=== PATIENT | male | born 1955 | race Caucasian/White ===

== ENCOUNTER 2018-10-26 06:48 | Emergency (ER) | payer MEDICAID, SELFPAY ==
[2018-10-26 06:51] VITALS: BP 138/90; PULSE 73; RESP 20; TEMP 36.2; O2SAT 100
--- NOTE | 2018-10-26 07:07 | W.ED.GENAD ---
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 Please take acetaminophen 1 g every 8 hours for pain. Please take 5 mg of Flexeril as needed for pain not controlled with Tylenol. Please do not drive or operate heavy machinery while taking Flexeril. Please take valacyclovir to treat your shingles. Please return to the emergency department immediately for increasing pain fever chills focal neurologic deficit or other concern. Referrals: Sarah Bradford MD [Primary Care Provider] - Medical Decision Making <Rodrigo Traore MD - Last Filed: 10/26/18 07:18> 63-year-old male states he fell at home 1 week ago and since that time is had left-sided back pain has been moderate to severe at times. He states that he had a rash that developed after soaking and Epson salts, but on exam this does appear to be a unilateral vesicular rash most consistent with an eruption of shingles. He has had blunt trauma to the area from his fall and differential diagnosis includes contusion versus underlying bony or visceral injury. Therefore, screening labs obtained and patient referred for CT imaging. Patient to be signed out to Dr. Conteh at change of shift pending review of diagnostic studies. I will provide patient a prescription for Valacyclovir. <Sanjay Conteh MD - Last Filed: 10/26/18 08:49> 63-year-old male received in signout from Dr. Traore report of fall downstairs approximately a week ago developed left-sided back pain few days later vesicular rash that did not cross the midline consistent with shingles. Patient's lab work is unremarkable patient CT abdomen pelvis with contrast is also unremarkable. on repeat exam patient continues to complain of pain with improvement after analgesia in the emergency department. Patient has no change in sensation normal gait normal distal reflexes normal sensation normal strength on my exam at 0844. I do not suspect emergent cause of patient's lower back pain. Patient with questionable allergy to naproxen so we will avoid NSAIDs patient's pain management plan to include Flexeril, acetaminophen, and lidocaine patches. Patient to follow-up with his [facility] clinic as scheduled this Saturday to return to the emergency department for increasing pain new symptoms new concerns or focal neurologic weakness. Lab Data Lab results reviewed: Yes I reviewed the patient's lab results. HPI <Rodrigo Traore MD - Last Filed: 10/26/18 07:18> General Mode of arrival: ambulatory. Date/Time Provider Initiated Documentation: 10/26/18 06:52. Limitations to Documentation: no limitations. Information obtained by: patient. History of Present Illness 63 year old M presents to the emergency department with the chief complaint of Left back pain and rash since fall 1 week ago, described as moderate and severe, Quality is described as dull and constant, and is localized to the back and left. Patient reports no radiation. Patient started experiencing this day(s) and it has been constant. No relieving factors improve symptom(s), No exacerbating factors reported . Patient notes rash; denies headaches, shortness of breath and syncope. Patient did receive the following treatments prior to arrival, NSAID and other (tens unit) Related Data Home Medications Medication Instructions Recorded Confirmed valacyclovir 1,000 mg PO TID 7 Days #21 tab 10/26/18 Previous Rx's Medication Instructions Recorded valacyclovir 1,000 mg PO TID 7 Days #21 tab 10/26/18 Allergies Allergy/AdvReac Type Severity Reaction Status Date / Time naproxen [From Aleve] AdvReac Hives Unverified 10/26/18 06:57 General Stated Complaint: Nk/Back Pain KAR: 3 Review of Systems <Rodrigo Traore MD - Last Filed: 10/26/18 07:18> Review of Systems Patient feels that left-sided rash began after soaking Epson salts. 8 systems reviewed and otherwise negative PFSH <Rodrigo Traore MD - Last Filed: 10/26/18 07:18> Surgical History H/O arthroscopic knee surgery (Chronic) Social History Smoking/Tobacco Use Status: Never Alcohol Intake: former Substance use type: former substance user Do you feel safe at home: Yes Do you feel safe in your relationship?: Yes Exam <Rodrigo Traore MD - Last Filed: 10/26/18 07:18> Narrative Exam Narrative: GEN: awake, alert, oriented 3. Pleasant, well groomed, interactive. HEAD: Normocephalic, atraumatic ENT: Mucous membranes moist, oropharynx unremarkable, External ear exam unremarkable EYES: PERRL, EOMI NECK: Full ROM, no LESLEY, no menigismus CHEST/RESP: Nontender, clear to auscultation bilateral, no wheeze/rhonchi/rales CARDIOVASCULAR: RRR, no murmur, rub jacinto. 2+ Rad pulse bilateral ABDOMEN: Soft, nontender, no mass. +Bowel sounds BACK: Left low back and thorax with vesicular, crusted rash that does not cross the midline. Tender in the left paraspinous musculature EXT: Full ROM, no edema, no rash Neuro: Grossly normal neurologic exam, conversant, interactive. Psych: Speech fluent, thoughts congruent, affect normal Course <Rodrigo Traore MD - Last Filed: 10/26/18 07:18> Vital Signs Temperature 36.2 C L 10/26/18 06:51 Pulse 73 10/26/18 06:51 Respiratory Rate 20 10/26/18 06:51 Blood Pressure 138/90 10/26/18 06:51 Pulse Oximetry 100 10/26/18 06:51 Temperature 36.2 C L 10/26/18 06:51 Pulse 73 10/26/18 06:51 Respiratory Rate 20 10/26/18 06:51 Respiratory Effort Non-Labored 10/26/18 06:51 Blood Pressure 138/90 10/26/18 06:51 Pulse Oximetry 100 10/26/18 06:51 Oxygen Delivery Method Room Air 10/26/18 06:51 Oxygen Flow Rate 0 10/26/18 06:51 Pain Level 9 10/26/18 06:51 Sign Out <Rodrigo Traore MD - Last Filed: 10/26/18 07:18> Sign Out Data: Sign Out Comment: followup ct/labs Last updated by Rodrigo Traore MD at 10/26/18 07:41
--- NOTE | 2018-10-26 07:10 | ED.GENADUL_ITS ---
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 Please take acetaminophen 1 g every 8 hours for pain. Please take 5 mg of Flexeril as needed for pain not controlled with Tylenol. Please do not drive or operate heavy machinery while taking Flexeril. Please take valacyclovir to treat your shingles. Please return to the emergency department immediately for increasing pain fever chills focal neurologic deficit or other concern. Referrals: Sarah Bradford MD [Primary Care Provider] - Medical Decision Making <Rodrigo Traoer MD - Last Filed: 10/26/18 07:18> 63-year-old male states he fell at home 1 week ago and since that time is had left-sided back pain has been moderate to severe at times. He states that he had a rash that developed after soaking and Epson salts, but on exam this does appear to be a unilateral vesicular rash most consistent with an eruption of shingles. He has had blunt trauma to the area from his fall and differential diagnosis includes contusion versus underlying bony or visceral injury. Therefore, s creening labs obtained and patient referred for CT imaging. Patient to be signed out to Dr. Conteh at change of shift pending review of diagnostic studies. I will provide patient a prescription for Valacyclovir. <Sanjay Conteh MD - Last Filed: 10/26/18 08:49> 63-year-old male received in signout from Dr. Traore report of fall downstairs approximately a week ago developed left-sided back pain few days later vesicular rash that did not cross the midline consistent with shingles. Patient's lab work is unremarkable patient CT abdomen pelvis with contrast is also unremarkable. on repeat exam patient continues to complain of pain with improvement after analgesia in the emergency department. Patient has no change in sensation normal gait normal distal reflexes normal sensation normal strength on my exam at 0844. I do not suspect emergent cause of patient's lower back pain. Patient with questionable allergy to naproxen so we will avoid NSAIDs patient's pain management plan to include Flexeril, acetaminophen, and lidocaine patches. Patient to follow-up with his [facility] as scheduled this Saturday to return to the emergency department for increasing pain new symptoms new concerns or focal neurologic weakness. Lab Data Lab results reviewed: Yes I reviewed the patient's lab results. HPI <Rodrigo Traore MD - Last Filed: 10/26/18 07:18> General Mode of arrival: ambulatory . Date/Time Provider Initiated Documentation: 10/26/18 06:52 . Limitations to Documentation: no limitations . Information obtained by: patient . History of Present Illness 63 year old M presents to the emergency department with the chief complaint of Left back pain and rash since fall 1 week ago, described as moderate and severe, Quality is described as dull and constant, and is localized to the back and left. Patie nt reports no radiation. Patient started experiencing this day(s) and it has been constant. No relieving factors improve symptom(s), No exacerbating factors reported . Patient notes rash; denies headaches, shortness of breath and syncope. Patient did receive the following treatments prior to arrival, NSAID and other (tens unit) Related Data Home Medications Medication Instructions Recorded Confirmed valacyclovir 1,000 mg PO TID 7 Days #21 tab 10/26/18 Previous Rx's Medication Instructions Recorded valacyclovir 1,000 mg PO TID 7 Days #21 tab 10/26/18 Allergies Allergy/AdvReac Type Severity Reaction Status Date / Time naproxen [From Aleve] AdvReac Hives Unverified 10/26/18 06:57 General Stated Complaint: Nk/Back Pain KAR: 3 Review of Systems <Rodrigo Traore MD - Last Filed: 10/26/18 07:18> Review of Systems Patient feels that left-sided rash began after soaking Epson salts. 8 systems reviewed and otherwise negative PFSH <Rodrigo Traore MD - Last Filed: 10/26/18 07:18> Surgical History H/O arthroscopic knee surgery (Chronic) Social History Smoking/Tobacco Use Status: Never Alcohol Intake: former Substance use type: former substance user Do you feel safe at home: Yes Do you feel safe in your relationship?: Yes Exam <Rodrigo Traore MD - Last Filed: 10/26/18 07:18> Narrative Exam Narrative: GEN: awake, alert, oriented 3. Pleasant, well groomed, interactive. HEAD: Normocephalic, atraumatic ENT: Mucous membranes moist, oropharynx unremarkable, External ear exam unremarkable EYES: PERRL, EOMI NECK: Full ROM, no LESLEY, no menigismus CHEST/RESP: Nontender, clear to auscultation bilateral, no wheeze/rhonchi/rales CARDIOVASCULAR: RRR, no murmur, rub jacinto. 2+ Rad pulse bilateral ABDOMEN: Soft, nontender, no mass. +Bowel sounds BACK: Left low back and thorax with vesicular, crusted rash that does not cross the midline. Tender in the left paraspinous musculature EXT: Full ROM, no edema, no rash Neuro: Grossly normal neurologic exam, conversant, interactive. Psych: Speech fluent, thoughts congruent, affect normal Course <Rodrigo Traore MD - Last Filed: 10/26/18 07:18> Vital Signs Temperature 36.2 C L 10/26/18 06:51 Pulse 73 10/26/18 06:51 Respiratory Rate 20 10/26/18 06:51 Blood Pressure 138/90 10/26/18 06:51 Pulse Oximetry 100 10/26/18 06:51 Temperature 36.2 C L 10/26/18 06:51 Pulse 73 10/26/18 06:51 Respiratory Rate 20 10/26/18 06:51 Respiratory Effort Non-Labored 10/26/18 06:51 Blood Pressure 138/90 10/26/18 06:51 Pulse Oximetry 100 10/26/18 06:51 Oxygen Delivery Method Room Air 10/26/18 06:51 Oxygen Flow Rate 0 10/26/18 06:51 Pain Level 9 10/26/18 06:51 Sign Out <Rodrigo Traore MD - Last Filed: 10/26/18 07:18> Sign Out Data: Sign Out Comment: followup ct/labs Last updated by Rodrigo Traore MD at 10/26/18 07:41
[2018-10-26 07:33] LABS: Abs Immature Grans 0.02 k/cumm (0.0-0.09); Absolute Eosinophil Count 0.07 k/cumm (0.0-0.7); Absolute Lymphocyte Count 2.49 k/cumm (1.2-3.4); Absolute Monocyte Count 0.59 k/cumm (0.11-0.7); Absolute Neutrophil Count 4.24 k/cumm (1.2-6.7); Basophils % 1.3; Eosinophils % 0.9; HCT 44.7 % (40.0-50.0); HGB 14.9 g/dL (13.5-17.5); Immature Grans % 0.3; Lymphocytes % 33.2; Mean Corp. HGB Concentration 33.3 g/dL (32.0-36.0); Mean Corpuscular Hemoglobin 28.7 pg (27.0-33.0); Mean Platelet Volume 9.2 fL (8.0-11.0); Monocytes % 7.9; Neutrophils % 56.4; Platelet Count 221 x1000/uL (130-400); RBC Distribution Width 13.7 % (11.8-14.1); White Blood Cell Count 7.51 k/cumm (4.4-10.8)
[2018-10-26] MEDS: Ketorolac 15 MG/ML VIAL IVP (07:39)
[2018-10-26] MEDS: Ondansetron 4 MG/2 ML VIAL (07:39)
[2018-10-26 07:48] LABS: ALT 27 U/L (12-78); AST 15 U/L (15-37); Albumin 3.7 g/dL (3.4-5.0); Alkaline Phosphatase 64 U/L (46-116); Anion Gap 9.7 mmol/L (3-11); BUN 21 mg/dL (7-18); Bilirubin, Total 0.5 mg/dL (0.2-1.0); CO2 28.3 mmol/L (21.0-32.0); CREATININE 0.82 mg/dL (0.70-1.30); Calcium 8.9 mg/dL (8.5-10.1); Chloride 98 mmol/L (98-107); Glucose 114 mg/dL (70-100); Potassium 3.8 mmol/L (3.5-5.1); Sodium 136 mmol/L (136-145); Total Protein 7.8 g/dL (6.4-8.2)
[2018-10-26 07:51] LABS: Diff Comment Agrees w/ Instrument; RBC Morphology Normal
--- NOTE | 2018-10-26 08:20 | DI.CT_ITS ---
SYMPTOMS/DIAGNOSIS: LEFT LUMBAR PAIN S/P FALL CT OF THE ABDOMEN AND PELVIS: There are no prior comparison exams. Images were performed from the lung bases through the ischial tuberosities after IV contrast. There is no evidence of a lumbar spine fracture or lower rib fracture. No pelvic fractures are identified. Degenerative disc changes and mild hip joint degenerative changes are seen. The lung bases are clear. The liver, gallbladder, spleen, pancreas and adrenals are unremarkable. The right kidney appears normal. The left kidney shows a few small parapelvic cysts. The aorta shows calcification but is normal in diameter. The appendix is normal. There are a few diverticula in the sigmoid colon. There is no free air, free fluid or bowel wall thickening. The bladder and prostate are unremarkable. IMPRESSION: No acute abnormality.
[2018-10-26] MEDS: Omnipaque 350 MG/ML 100 ML BTL IJ (08:24)
[2018-10-26] MEDS: Normal Saline Flush 10 ML SYR IVP (08:25)
--- NOTE | 2018-10-26 08:38 | DI.VRAD_ITS ---
EXAM: CT Abdomen and Pelvis With Contrast EXAM DATE/TIME: 10/26/2018 7:15 AM CLINICAL HISTORY: 63 years old, male; Other: Left lumbar pain after fall. TECHNIQUE: Imaging protocol: Axial computed tomography images of the abdomen and pelvis with intravenous contrast. Coronal and sagittal reformatted images were created and reviewed. Radiation optimization: All CT scans at this facility use at least one of these dose optimization techniques: automated exposure control; mA and/or kV adjustment per patient size (includes targeted exams where dose is matched to clinical indication); or iterative reconstruction. Contrast material: OMNIPAQUE 350; Contrast volume: 100 ml; Contrast route: IV; COMPARISON: No relevant prior studies available. FINDINGS: ABDOMEN: Liver: Normal. No mass. Gallbladder and bile ducts: Normal. No calcified stones. No ductal dilation. Pancreas: Normal. No ductal dilation. Spleen: Normal. No splenomegaly. Adrenals: Normal. No mass. Kidneys and ureters: Normal. No hydronephrosis. Stomach and bowel: Colonic diverticulosis is present without evidence for inflammation. Appendix: No evidence of appendicitis. PELVIS: Bladder: Unremarkable as visualized. Reproductive: Unremarkable as visualized. ABDOMEN and PELVIS: Intraperitoneal space: Normal. No free air. No significant fluid collection. Bones/joints: Lumbar spine degenerative disc disease is noted. Soft tissues: Unremarkable. Vasculature: Normal. No abdominal aortic aneurysm. Lymph nodes: Normal. No enlarged lymph nodes. IMPRESSION: No acute findings Dictated and Authenticated by: Elier Joseph MD. Ordering:PAULO Wallace MD
[2018-10-26 09:06] VITALS: BP 138/90; PULSE 73; RESP 20; TEMP 36.2; O2SAT 100
== END 2018-10-26 09:08 | disposition home or self-care (01) ==
PROVIDERS: Emergency Medicine; Emergency Provider Emergency Medicine; PCP Nurse Practitioner
DX: M54.5 Low back pain (principal); B02.9 Zoster without complications; W01.0XXA Fall on same level from slipping, tripping and stumbling without subsequent striking against object, initial encounter
CPT/HCPCS: 36415; 80053; 96374; 99285; 74177; 85025; 99284; J1885; J2405; J3490

== ENCOUNTER 2018-12-03 13:25 | Outpatient (REF) | payer MEDICAID, SELFPAY ==
[2018-12-03 19:56] LABS: Abs Immature Grans 0.01 k/cumm (0.0-0.09); Absolute Basophil Count 0.03 k/cumm (0.0-0.2); Absolute Eosinophil Count 0.06 k/cumm (0.0-0.7); Absolute Lymphocyte Count 2.14 k/cumm (1.2-3.4); Absolute Monocyte Count 0.44 k/cumm (0.11-0.7); Absolute Neutrophil Count 3.94 k/cumm (1.2-6.7); Basophils % 0.5; Eosinophils % 0.9; HCT 42.1 % (40.0-50.0); HGB 13.8 g/dL (13.5-17.5); Immature Grans % 0.2; Lymphocytes % 32.3; Mean Corp. HGB Concentration 32.8 g/dL (32.0-36.0); Mean Corpuscular Hemoglobin 29.2 pg (27.0-33.0); Mean Platelet Volume 9.5 fL (8.0-11.0); Monocytes % 6.6; Neutrophils % 59.5; Platelet Count 285 x1000/uL (130-400); RBC 4.73 m/cumm (4.50-6.00); RBC Distribution Width 14.7 % (11.8-14.1); White Blood Cell Count 6.62 k/cumm (4.4-10.8)
[2018-12-03 20:19] LABS: ALT 30 U/L (12-78); AST 16 U/L (15-37); Albumin 3.9 g/dL (3.4-5.0); Alkaline Phosphatase 56 U/L (46-116); Amylase 33 U/L (25-115); Anion Gap 13.7 mmol/L (3-11); BUN 16 mg/dL (7-18); Bilirubin, Total 0.8 mg/dL (0.2-1.0); CO2 25.3 mmol/L (21.0-32.0); CREATININE 0.99 mg/dL (0.70-1.30); Calcium 9.4 mg/dL (8.5-10.1); Chloride 103 mmol/L (98-107); Glucose 122 mg/dL (70-100); Lipase 83 U/L (73-393); Potassium 3.9 mmol/L (3.5-5.1); Sodium 142 mmol/L (136-145)
[2018-12-03 20:58] LABS: Vitamin B12 364 pg/mL (193-986)
== END 2018-12-03 13:45 ==
LOC: NCHCN 13:25
PROVIDERS: PCP Nurse Practitioner; Visit Provider Nurse Practitioner
DX: R10.9 Unspecified abdominal pain (principal); R20.0 Anesthesia of skin
CPT/HCPCS: 80053; 83690; 82150; 82607; 85025

== ENCOUNTER 2019-01-28 03:33 | Outpatient (CLI) | payer MEDICAID, SELFPAY ==
--- NOTE | 2019-01-28 11:22 | DI.CT_ITS ---
SYMPTOMS/DIAGNOSIS: ABDOMINAL PAIN, R10.9, SHINGLES IN OCTOBER 2018 WITH LEFT-SIDED ABDOMINAL PAIN SINCE CT OF THE ABDOMEN AND PELVIS: Comparison is made with October,. Images were performed from the lung bases through the ischial tuberosities after IV and oral contrast. The lung bases show minimal dependent changes. The heart size is normal. No pleural or pericardial effusions are seen. The liver, gallbladder, spleen, pancreas and adrenals appear normal. Pelvic cysts of the left kidney are again noted. The right kidney appears normal. The appendix is normal. There are diverticula of the lower descending and sigmoid colon but no evidence of diverticulitis or colitis. The small bowel fold pattern appears normal. There is mild to moderate atherosclerotic change of the aorta and iliac arteries, but no evidence of an aneurysm. Degenerative disc changes are seen in the spine. IMPRESSION: No acute abnormality.
[2019-01-28] MEDS: Omnipaque 350 MG/ML 100 ML BTL IV (11:30)
== END 2019-01-28 03:53 ==
PROVIDERS: PCP Nurse Practitioner; Visit Provider Nurse Practitioner
DX: R10.9 Unspecified abdominal pain (principal)
CPT/HCPCS: 74177; J3490

== ENCOUNTER 2019-04-25 09:21 | Inpatient (IN) | payer MEDICAID, SELFPAY ==
[2019-04-25] VITALS (73 sets, daily range): BP systolic 118–197; BP diastolic 71–99; PULSE 65–123; RESP 5–53; TEMP 36.1–37.1; O2SAT 92–99
--- NOTE | 2019-04-25 09:27 | ED.GENADUL_ITS ---
Discharge Plan Disposition Patient Disposition: [facility] INPATIENT Condition: Serious Discharge Details Chief Complaint: AMS/LOC Clinical Impression: Altered mental status, Psychosis Admit Date/Time: 04/25/19 16:47 Admit Provider: ySd Styles Attending Provider: Syd Styles Primary Care Provider: Martha Lopez ED Provider: Oscar Bell Medical Decision Making 11:00 -- 63-year-old male here with EMS after being given ketamine for excited delirium syndrome, now obtunded. Protecting airway. Saturating well. Consider acute intracranial hemorrhage. Plan to obtain CT of the head. Consider intoxication. Will check EtOH and UDS. Patient has been chemically restrained by EMS with ketamine administered in the field. Patient is to be physically restrained here given significant risk of harm to self and others as demonstrated by violent and agressive erratic behavior immediately prior to administration of ketamine. Restraint and one-to-one observation has been ordered. Screening ECG was reviewed and interpreted by me: Sinus tachycardia 130 bpm, normal axis, right bundle branch block, nondiagnostic. 11:20 --labs reviewed and anion gap noted. We will continue IV fluid. UDS positive for THC. I spoke with the patient's brother who notes that his brother has had recent life stressors including job loss, family stressor including falling out with son. He notes that patient has been more confused recently with repetitive statements and agitation today. He notes he specifically current concern for a mental breakdown. I spoke with the patient's daughter who notes her father is chronically paranoid and she questions a personality disorder. She notes that he has multiple fractured relationships with family and friends. She also states that there was a past brain injury remotely. She notes that at times he can be belligerent. She states recent life stressor including his mother passing a few months ago. She also states that he has been perseverating on [employer] and politicians and has recently expressed intent to take action against [employer], he does not provide more specifics about what this action would be other than that it may land him in [facility]. Patient reassessed and remains altered now screaming and erratic. Plan to give anxiolytic -we will give Ativan 1 mg. Continue physicial restraint for patient and staff protection. Plan to consult mental health for EE for psychosis. 12:10 --I spoke with the patient's son who is on his HIPAA directive and updated him as to ED presentation and course. His son does note that patient has been declining over the past 2 weeks and much worse over the past 2 days. He specifically notes that the patient believes that he is a Messiah and needs to spread a message. It is unclear what this message is but son does note that he is not worried about getting arrested anymore as a consequence for doing the things he needs to do now that his mother is . Awaiting mental health consult. 12:30 -- Patient more cooperative. 4 pt restraint discontinued and 2pt restraint initiated for patient protection. CT head was interpreted by radiology:IMPRESSION: 1. No acute intracranial hemorrhage. 2. Opacities in the right maxillary sinus may represent sinusitis or hemorrhage. 3. Displaced fracture of the left lamina papyracea of unknown age. 13:10 -- Nursing note restraint no longer needed. Restraints discontinued, HPI General Mode of arrival: EMS . Date/Time Provider Initiated Documentation: 04/25/19 09:25 . Limitations to Documentation: altered mental status . Information obtained by: EMS . HPI Narrative: 63-year-old male with history and medical record of alcohol dependence in remission, anxiety and depression, presents today with altered mental status. Apparently patient was found on the street, altered and aggressive, confrontational with police and EMS, with erratic behavior. EMS was concern for excited delirium syndrome. There apparently was report of substance abuse. EMS administered ketamine 300 mg IM for sedation. Patient arrives now calm and altered. EMS noted that there is no history of trauma. Related Data Home Medications Medication Instructions Recorded Confirmed amitriptyline 10 mg tablet 10 mg PO DAILY 03/11/19 04/25/19 Allergies Allergy/AdvReac Type Severity Reaction Status Date / Time naproxen [From Aleve] AdvReac Hives Unverified 04/25/19 15:30 General KAR: 3 Review of Systems Unobtainable due to mental status [facility] Medical History Abdominal pain (Acute) Alcohol dependence in remission (Acute) Anxiety and depression (Acute) Low back pain (Acute) Numbness and tingling of right arm (Acute) Numbness in feet (Acute) Post herpetic neuralgia (Acute) Shingles (Acute) Surgical History H/O arthroscopic knee surgery (Chronic) Social History Smoking/Tobacco Use Status: Never Alcohol Intake: current Substance use type: former substance user Additional Social history: unable to verbalize at time of triage Exam Const General: cooperative and no acute distress HENMT Head: normocephalic and atraumatic Mouth: moist mucous membranes Eyes Conjunctivae: normal conjunctivae Sclera: normal sclerae Neck Neck: trachea midline and supple Chest Chest: normal inspection of the chest Resp Auscultation: clear to auscultation bilaterally, no rales, no rhonchi and no wheezes Cardio Jugular venous pressure: no JVD Rate: tachycardic Rhythm: regular rhythm GI Palpation: soft, no guarding, no masses and not rigid Back/Spine/Pelvis Back: No ecchymosis Skin General skin exam: no rashes or lesions noted Neuro General: obtunded and other (Protecting airway) Extrem General: no edema Restraint Face to Face Time of Face to Face Face to Face: Time of Face to Face: 09:35 Patient's Immediate Situation Requiring Restraints/Seclusion: Harm to Staff & Others Patient Response to Restraints: Tolerating without Problems Patient's Medical & Behavioral Condition: Aggressive, erratic, currently under tempory chemical sedation administered by EMS. Need for Continuation of Restraints Has Been Assessed: Restraints Continued 2nd Face to Face: Time of Face to Face: 11:12 Patient's Immediate Situation Requiring Restraints/Seclusion: Harm to Staff & Others Patient Response to Restraints: Tolerating without Problems Patient's Medical & Behavioral Condition: Still altered, erratic. More alert. Now screaming. Nursing notes still concerned.
[2019-04-25 09:41] LABS: Abs Immature Grans 0.02 k/cumm (0.0-0.09); Absolute Basophil Count 0.04 k/cumm (0.0-0.2); Absolute Eosinophil Count 0.12 k/cumm (0.0-0.7); Absolute Lymphocyte Count 2.93 k/cumm (1.2-3.4); Absolute Monocyte Count 0.77 k/cumm (0.11-0.7); Absolute Neutrophil Count 6.46 k/cumm (1.2-6.7); Basophils % 0.4; Eosinophils % 1.2; HCT 42.6 % (40.0-50.0); Immature Grans % 0.2; Lymphocytes % 28.3; Mean Corp. HGB Concentration 32.9 g/dL (32.0-36.0); Mean Corpuscular Hemoglobin 28.7 pg (27.0-33.0); Mean Corpuscular Volume 87.3 fL (80-95); Mean Platelet Volume 9.1 fL (8.0-11.0); Monocytes % 7.4; Neutrophils % 62.5; Platelet Count 273 x1000/uL (130-400); RBC 4.88 m/cumm (4.50-6.00); RBC Distribution Width 14.8 % (11.8-14.1); White Blood Cell Count 10.34 k/cumm (4.4-10.8)
--- NOTE | 2019-04-25 09:42 | DI.CT_ITS ---
EXAM: CT HEAD WO CLINICAL HISTORY: altered mentation TECHNIQUE: The exam was performed according to the usual protocol without contrast. COMPARISON: No priors for comparison. FINDINGS: Ventricles and sulci are consistent with the patient's age. There are areas of decreased attenuation in the white matter. These likely reflect small vessel ischemic disease. No acute intracranial hem orrhage, midline shift or mass effect is identified. The ventricles are intact. The basilar cistern s are patent. There is mucosal thickening in the right maxillary sinus. There is thickening of the donnelly of the right maxillary sinus. This likely reflects chronic sinusitis. No acute calvarial frac ture is identified. The mastoid air cells are well pneumatized. There is a displaced fracture of th e left lamina papyracea. This is indeterminate in age. IMPRESSION: 1. No acute intracranial process. 2. Displaced fracture of the left lamina papyracea of unknown age. 3. Right maxillary sinusitis.
[2019-04-25 09:49] LABS: Ammonia 27 umol/L (11-32)
--- NOTE | 2019-04-25 09:53 | DI.VRAD_ITS ---
PROCEDURE INFORMATION: Exam: CT Head Without Contrast Exam date and time: 04/25/2019 9:38 AM Clinical history: 63 years old, male; Altered mental status/memory loss TECHNIQUE: Imaging protocol: Computed tomography of the head without contrast. COMPARISON: No relevant prior studies available. FINDINGS: Brain: No acute intracranial hemorrhage. There is mild diffuse heterogeneity of the white matter attenuation, consistent with chronic white matter ischemic changes. Mild cerebral atrophy Ventricles: Normal. No ventriculomegaly. Bones/joints: Displaced fracture of the left lamina papyracea of unknown age. Sinuses: Opacities in the right maxillary sinus may represent sinusitis or hemorrhage. Mastoid air cells: Visualized mastoid air cells are well aerated. Soft tissues: Unremarkable. IMPRESSION: 1. No acute intracranial hemorrhage. 2. Opacities in the right maxillary sinus may represent sinusitis or hemorrhage. 3. Displaced fracture of the left lamina papyracea of unknown age. Dictated and Authenticated by: Hernán Aldana MD. Ordering:NAVEED Moore MD
[2019-04-25 10:04] LABS: ALT 26 U/L (16-63); AST 19 U/L (15-37); Albumin 3.9 g/dL (3.4-5.0); Alkaline Phosphatase 53 U/L (46-116); Anion Gap 18.5 mmol/L (3-11); BUN 22 mg/dL (7-18); Bilirubin, Total 0.9 mg/dL (0.2-1.0); CO2 18.5 mmol/L (21.0-32.0); CREATININE 1.43 mg/dL (0.70-1.30); Calcium 9.1 mg/dL (8.5-10.1); Chloride 102 mmol/L (98-107); Estimated GFR 50.11 (mL/min/1.73m2); Glucose 264 mg/dL (70-100); Potassium 3.4 mmol/L (3.5-5.1); Sodium 139 mmol/L (136-145); TSH (W/Ref FT4) 1.33 uIU/mL (0.36-3.74); Total Protein 7.3 g/dL (6.4-8.2)
[2019-04-25 10:05] LABS: ETHANOL BLOOD < 3.0 mg/dL (<3); Troponin I < 0.05 ng/mL (0.00-0.06)
[2019-04-25 10:28] LABS: Bilirubin Negative (Negative); Blood Trace-intact (Negative); Clarity Clear (Clear); Glucose 250 mg/dL (Negative); Ketones 15 mg/dL (Negative); Leukocyte Esterase Negative (Negative); Nitrite Negative (Negative); Specific Gravity >= 1.030 (1.005-1.025); Urobilinogen 0.2 EU/dL (Up TO 0.2)
[2019-04-25 10:30] LABS: *AMPHETAMINES SCREEN URINE Negative (Negative); *BARBITURATES SCREEN URINE Negative (Negative); *BENZODIAZEPINES SCREEN URINE Negative (Negative); Cannabinoids THC POSITIVE (Negative); Cocaine Screen,Urine Negative (Negative); METHADONE URINE SCREEN Negative (Negative); OPIATES URINE SCREEN Negative (Negative)
[2019-04-25 10:48] LABS: Epithelial Cells Few HPF (Negative)
[2019-04-25 10:49] LABS: C & S Indicated? Yes; Mucus Moderate (Negative)
[2019-04-25 10:58] LABS: Tricyclic Antidepressants Negative (Negative)
[2019-04-25] MEDS: LORazepam 2 MG/ML VIAL 1 MG IVP (11:23)
[2019-04-25] MEDS: THIAMINE 100 MG in Normal Saline 100 ML 200 MG IVPB (11:33)
[2019-04-25] MEDS: Normal Saline Flush 10 ML SYR IVP (11:34)
[2019-04-25] MEDS: Normal Saline 1,000 ML 1000 ML IV (11:53)
--- NOTE | 2019-04-25 13:58 | PDOC.MHCN_ITS ---
Date of service: 04/25/19 Time of Service: 12:55 Mental Health Crisis Note Presenting Issue How did you arrive at the ED and why did you come: Patient arrived at the ED after the [place] [employer] were contacted due to patient screaming and being violent in the street. Police had to use 300 ketamine to get patient down and with EMS who then brought him to [facility]. Precipitating Factors Patient presents very depressed and tearful when talking with this worker. Patients continues to loop in conversation about corruption of analytic programmer and government. Patient stated to hospital staff that he is 'no longer afraid to go to senior living for what needs to be done. Patients mom recently in December. Patient stated that he helps at the [employer] and was triggered by something said, this worker asked patient to explain what trigge red, patient did not answer. Patient stated that he had shingles a few months ago and has'nt been eating well. Patient denies SI and HI but states I'm done, I'm done, I'm worthless. Patient denies hallucinations of any kind. When asked about completing intake with mental health, patient stated that he has tried to get help from [facility] on [facility] with no luck, patient stated he had a therapist in the 90's who he might be able to see again. Patient has flat affect, calm at time of assessment, depressed mood. Patients states not sleeping and has not eaten well since he got shingles two months ago.
--- NOTE | 2019-04-25 16:20 | PDOC.MHCN ---
Date of service: 04/25/19 Time of Service: 16:20 Mental Health Crisis Note Presenting Issue How did you arrive at the ED and why did you come: Patient was transported to the ED by Police after becoming aggressive in the community. Precipitating Factors Patient does not cooperate with assessment, and incapable of answering questions with any awareness. Disposition BEHAVIOR: Patient was angry and yelling with aggressive movements. EYE CONTACT: Patient maintained appropriate eye contact. MOOD: Depressed, angry, confused and anxious. AFFECT: Flat, with animated outbursts. APPETITE: Unknown SLEEP(trouble falling/staying asleep: Unknown Plan Patient was placed on EE status to await placement. Signature Clinician's Name/Title: Rodrigo Bran BA. [facility]
--- NOTE | 2019-04-25 19:03 | CMPROGNOTE_ITS ---
Care Management Progress Note Jared was initially lying on a stretcher in the Emergency Department and had been released from restraints. He was rambling on about politics and could not really focus on the questions being asked. Feels he is worthless and doesn't really care what happens anymore. His mother recently and states he can now do what needs to be done. INVOLUNTARY FOR INPATIENT PSYCHIATRIC STABILIZATION. Patient is not able to express his needs and has had outbursts of agitated behavior. Has been effectively redirected but cannot articulate his wishes for treatment. He is a danger to himself and the EE has been completed. He is a high risk for elopement. Second Certification will be scheduled through [facility] within the next 24 hours. Plan is to admit to the Transition Bed on the M/S Floor. Nursing Specialist Icu will coordinate based on staffing and bed availability. Safety plan has been established with patient who has limited ability to participate, and care team, to adhere to patient goals, identify restrictions based on behavioral status, address nutrition, and determine allowed personal belongings, tools for hygiene and personal care. Determine level of activity including ambulation, level of supervision, visitors, and determine privileges based on behaviors and level of engagement by patient. Safety Huddle Participants: Kourtney; ANGELITA, Louisa; nursing general handling supervisor, Michelle; Lucas MERCADO, [facility] Director Of Instructional Technology, Rodrigo, [facility]; Dr. Oscar Bell. SAFETY PLAN: 1. Will remain on suicide precautions and in paper clothes or hospital gown. 2. Will remain in room under direct supervision of one-on-one staff at all times provided by CPSO, COMMUNITY AFFAIRS DIRECTOR, EMT, FURNACE OPERATOR AND TENDER injection molding operator. 3. May have paper cups, plates, finger foods as well as a safety spoon with which to eat meals. [facility] staff will be responsible for accounting of utensils after meals. 4. Follow [facility] Management of the Admitted Behavioral Health Patient policy. 5. Bathroom available in room, shower as needed per RN. 6. No personal belongings permitted at this time. 7. Brother, Son and Daughter may visit. 8. No phone tonight 9. No TV tonight 9. Due to INVOLUNTARY status, Jared must remain in the hospital. High risk for elopement. Contact the [facility] adult day care worker to re-evaluate and assist with de-escalation. Bed Coordination Updates: [facility]: no beds tonight [place]: No beds tonight [facility]- No beds tonight [facility]- No beds tonight. Patient is currently Involuntarily at [facility] and seeking inpatient psychiatric admission when a bed becomes available. [facility] Frontline Director Of Instructional Technology will continue seeking placement. Please contact the Floor Coverings Salesperson Morning Show Producer ([phone]) and [facility] Director Of Instructional Technology ([phone]) for any needed changes in the Safety Plan. Safety plan has been provided to interdepartmental care team.
--- NOTE | 2019-04-25 19:32 | PDOC.CMSAFE ---
Care Management Safety Plan INVOLUNTARY FOR INPATIENT PSYCHIATRIC STABILIZATION. Patient is not able to express his needs and has had outbursts of agitated behavior. Has been effectively redirected but cannot articulate his wishes for treatment. He is a danger to himself and the EE has been completed. He is a high risk for elopement. Second Certification will be scheduled through [facility] within the next 24 hours. Plan is to admit to the Transition Bed on the M/S Floor. Nursing Consultant Electronics will coordinate based on staffing and bed availability. Safety plan has been established with patient who has limited ability to participate, and care team, to adhere to patient goals, identify restrictions based on behavioral status, address nutrition, and determine allowed personal belongings, tools for hygiene and personal care. Determine level of activity including ambulation, level of supervision, visitors, and determine privileges based on behaviors and level of engagement by patient. SAFETY PLAN: DD 04/25/19 18:00 M/S Room 235 1. Will remain on suicide precautions and in paper clothes or hospital gown. 2. Will remain in room under direct supervision of one-on-one staff at all times provided by CPSO, CORNER CUTTER MACHINE OPERATOR, EMT, SHANK STAPLER smocking machine operator. 3. May have paper cups, plates, finger foods as well as a safety spoon with which to eat meals. [facility] staff will be responsible for accounting of utensils after meals. 4. Follow [facility] Management of the Admitted Behavioral Health Patient policy. 5. Bathroom available in room, shower as needed per RN. 6. No personal belongings permitted at this time. 7. Brother, Son and Daughter may visit. 8. No phone tonight 9. No TV tonight 9. Due to INVOLUNTARY status, Jaerd must remain in the hospital. High risk for elopement. Contact the [facility] bag shop worker to re-evaluate and assist with de-escalation.
--- NOTE | 2019-04-25 22:16 | W.PM.HP.N ---
Date of service: 04/25/19 Time of Service: 22:16 Assessment and Plan Assessment and plan (1) Psychosis: Status: Acute Assessment and plan: admit for observation pending 2nd psychiatric certification; use prn Ativan if severely agitated. For now he is content to talk repetively and to write political slogans and statements w/ crayons and paper. Qualifiers: Psychosis type: unspecified psychosis type Qualified Code(s): F29 - Unspecified psychosis not due to a substance or known physiological condition (2) Acute prerenal azotemia: Status: Acute Assessment and plan: Patient was given iv fluids in the ER. I doubt that the patient would be willing to allow iv placement tonight. He is now freely drinking. I will repeat his labs in the morning. (3) Hyperglycemia: Status: Acute Assessment and plan: possible occult new onset type II DM. I will repeat labs in the a.m. including glycohemoglobin a1c and BMP, then monitor glucose AC/HS (4) Hypokalemia: Status: Acute Assessment and plan: will give po potassium and repeat labs in a.m. History of Present Illness History of Present Illness Chief Complaint: altered mental status; psychosis Narrative: Information taken from ER notes as patient is delusional and very tangential and loquacious in his speech but is not redirectable to my questions. 63 yr old male w/ PMH of depression, alcohol dependence in remission, anxiety disorder who was found on the street with altered mental status and being verbally agressive and combative w/ EMS and police and showing erratic behavior. He was sedated by EMS w/ ketamine 300 mg IM and presented to the ER obtunded. CT of head was done and showed no acute IC hemorrhage but opacity of the right maxillary sinus and a displace fracture of the left lamina papyracea of unknown age. Labs included CBC, CMP, UA, TSH. CBC was unremarkable. CMP demonstrated mild azotemia w/ BUN 22 and creatinine of 1.43, potassium 3.4, AG of 18.5, glucose of 264, normal LFT's and normal TSH. UA w/ SG > 1.030, protein 30, ketones 15, trace blood, neg. nitrites, neg. LE, 20-50 granular casts. Patient was treated w/ lorazepam and thiamine and a liter of saline. He was admitted under involuntary admission EE due to concerns that he is a danger to himself. He is awaiting a second psychiatric certification. Futher information was obtained by Dr. Bell from the patient's family including his brother and daughter. According to the patient's brother, the patient has had a number of life stressors including job loss, of his mother, and a falling out with his son. The brother states that the patient has become more confused lately w/ repetitive statements, signs of agitation. The daughter states that the patient is chronically paranoid and that he has had multiple fractured relationships w/ family and friends and that the patient has suffered from traumatic brain injury in the remote past. he has been perseverating on powerhouse mechanic helper and politicians and expressed intent to take action against powerhouse mechanic helper but was not able to provide any specifics. Patient's son spoke w/ Dr. Bell and noted that the patient has been declining over past 2 weeks and worse in last 2 days w/ beliefs that he is a Messiah and needs to spread a message. The son expressed concern that his father is no longer worried about getting arrested anymore for doing the things he needs to do now that the patient's mother has . During my interview with the patient he obsessed about powerhouse mechanic helper making a lot of money off class action suits and that the average people do not benefit from it. He also perseverated on the topic of medical reform and how the cost of medical practice is driven up by malpractice attorneys and high cost of malpractice insurance. He also obsessed about how he wrote a complaint to Governor [place] who used executive privilege to avoid responding to the patient. The patient referred back to his childhood growing up in a family and traveling to [facility] and [place] and getting drunk with his father while he was still underage. The patient could not focus to discuss how he came about coming to the hospital or what he thinks is the matter with him or what others perceive is wrong with him. He was very circumstantial, tangential and very loquacious. Review of Systems Unobtainable due to mental status [facility] Medical History Abdominal pain (Acute) Alcohol dependence in remission (Acute) Anxiety and depression (Acute) Low back pain (Acute) Numbness and tingling of right arm (Acute) Numbness in feet (Acute) Post herpetic neuralgia (Acute) Shingles (Acute) Surgical History H/O arthroscopic knee surgery (Chronic) Social History Smoking/Tobacco Use Status: Never Alcohol Intake: current Substance use type: former substance user Additional Social history: unable to verbalize at time of triage Meds Home Medications and Allergies Home Medications Medication Instructions Recorded Confirmed Type amitriptyline 10 mg tablet 10 mg PO DAILY 03/11/19 04/25/19 History Allergies Allergy/AdvReac Type Severity Reaction Status Date / Time naproxen [From Aleve] AdvReac Hives Unverified 04/25/19 15:30 Exam Narrative Exam Narrative: deferred d/t combative nature, argumentative behavior. Results Labs Result diagrams: 04/25/19 09:17 04/25/19 09:17 Labs: Laboratory Results - last 24 hr 04/25/19 04/25/19 04/25/19 09:17 09:17 09:17 WBC 10.34 RBC 4.88 Hgb 14.0 Hct 42.6 MCV 87.3 MCH 28.7 MCHC 32.9 RDW 14.8 H Plt Count 273 MPV 9.1 Immature Gran % 0.2 Neutrophils % 62.5 Lymphocytes % 28.3 Monocytes % 7.4 Eosinophils % 1.2 Basophils % 0.4 Absolute Neutrophils 6.46 Absolute Lymphocytes 2.93 Absolute Monocytes 0.77 H Absolute Eosinophils 0.12 Absolute Basophils 0.04 Sodium 139 Potassium 3.4 L Chloride 102 Carbon Dioxide 18.5 L Anion Gap 18.5 H BUN 22 H Creatinine 1.43 H Estimated GFR/1.73 m2 50.11 Glucose 264 H Calcium 9.1 Total Bilirubin 0.9 AST 19 ALT 26 Alkaline Phosphatase 53 Ammonia 27 Troponin I < 0.05 Total Protein 7.3 Albumin 3.9 TSH 1.33 Urine Color Urine Clarity Urine pH Ur Specific [place] Urine Protein Urine Ketones Urine Blood Urine Nitrite Urine Bilirubin Urine Urobilinogen Ur Leukocyte Esterase Urine RBC Urine WBC Ur Epithelial Cells Urine Crystals Urine Bacteria Urine Casts Urine Mucus Ur Culture Indicated? Urine Glucose Urine Opiates Screen Urine Methadone Screen Ur Barbiturates Screen Ur Tricyclics Screen Ur Amphetamines Screen U Benzodiazepines Scrn Urine Cocaine Screen Ur THC Screen Ethyl Alcohol < 3.0 04/25/19 04/25/19 10:10 10:10 WBC RBC Hgb Hct MCV MCH MCHC RDW Plt Count MPV Immature Gran % Neutrophils % Lymphocytes % Monocytes % Eosinophils % Basophils % Absolute Neutrophils Absolute Lymphocytes Absolute Monocytes Absolute Eosinophils Absolute Basophils Sodium Potassium Chloride Carbon Dioxide Anion Gap BUN Creatinine Estimated GFR/1.73 m2 Glucose Calcium Total Bilirubin AST ALT Alkaline Phosphatase Ammonia Troponin I Total Protein Albumin TSH Urine Color Yellow Urine Clarity Clear Urine pH 5.0 Ur Specific [place] >= 1.030 H Urine Protein 30 H Urine Ketones 15 H Urine Blood Trace-intact H Urine Nitrite Negative Urine Bilirubin Negative Urine Urobilinogen 0.2 Ur Leukocyte Esterase Negative Urine RBC 3-5 H Urine WBC 3-5 Ur Epithelial Cells Few Urine Crystals Urine Bacteria Urine Casts 20-50 fine granular Urine Mucus Moderate Ur Culture Indicated? Yes Urine Glucose 250 H Urine Opiates Screen Negative Urine Methadone Screen Negative Ur Barbiturates Screen Negative Ur Tricyclics Screen Negative Ur Amphetamines Screen Negative U Benzodiazepines Scrn Negative Urine Cocaine Screen Negative Ur THC Screen Positive A Ethyl Alcohol Last Vital Signs Temp 36.1 C L 04/25/19 19:02 Pulse 99 H 04/25/19 19:02 Resp 18 04/25/19 19:02 BP 155/84 H 04/25/19 19:02 Pulse Ox 98 04/25/19 19:02
[2019-04-25] MEDS: Potassium Chloride 20 MEQ TABCR PO (23:45)
[2019-04-26 03:30] VITALS: BP 133/88; PULSE 98; RESP 16; TEMP 37; O2SAT 98
[2019-04-26 07:46] LABS: Anion Gap 10.2 mmol/L (3-11); BUN 16 mg/dL (7-18); CO2 23.8 mmol/L (21.0-32.0); CREATININE 0.88 mg/dL (0.70-1.30); Calcium 8.9 mg/dL (8.5-10.1); Chloride 108 mmol/L (98-107); Glucose 96 mg/dL (70-100); Magnesium 2.2 mg/dL (1.8-2.4); Potassium 4.1 mmol/L (3.5-5.1); Sodium 142 mmol/L (136-145)
[2019-04-26 08:19] VITALS: BP 125/79; PULSE 99; RESP 17; TEMP 36.7; O2SAT 96
[2019-04-26] MEDS: Thiamine 100 MG TAB PO (08:38)
[2019-04-26] MEDS: Multivitamin TAB 1 TAB PO (08:38)
[2019-04-26] MEDS: Normal Saline Flush 10 ML SYR IVP (08:40)
--- NOTE | 2019-04-26 09:51 | PDOC.MHCN ---
Date of service: 04/26/19 Time of Service: 09:52 Mental Health Crisis Note Presenting Issue How did you arrive at the ED and why did you come: Patient was brought to the Ed via Police after they were called to perform a safety check on the patient. Police found him to be very agitated, delusional and confused. Precipitating Factors Patient could not elaborate on what might possibly the reason for his actions and what if any events precipitated this event. Disposition BEHAVIOR: Today the patient appears to be in the midst of a manic episode, rapid speech, rapid thought process, and belief that he is all knowing. He reports being frustrated denies S/I or H/I. He exhibits, strong delusional thoughts believing he is Howierhett Suarezser, and does not currently possess the ability to make rational safe decisions for himself. Patient reports having several tick bites this year, but there is no medical confirmation of him receiving treatment. He provides large amounts of information with only very little of the information being accurate. EYE CONTACT: Constant fixed eye contact. MOOD: Highly Manic, animated and excited. AFFECT: Animated with rapid thought process. APPETITE: Appropriate. SLEEP(trouble falling/staying asleep: Undetermined because of sedation. Plan The Second Certification is scheduled for today 04/26/19 at 1:30 pm. If upheld psychiatric placement at an appropriate facility will follow. Signature Clinician's Name/Title: Rodrigo Bran BA.[facility]
[2019-04-26 12:17] VITALS: BP 131/70; PULSE 71; RESP 17; TEMP 36.6; O2SAT 100
--- NOTE | 2019-04-26 13:32 | W.PM.PROGNOT ---
Date of Service Date of service: 04/26/19 Time of Service: 13:32 Assessment and Plan Assessment and plan (1) Psychosis: Start date: 04/26/19 Start time: 13:39 Status: Acute Assessment and plan: Awaiting placement at this time. Patient second cert this afternoon. Qualifiers: Psychosis type: unspecified psychosis type Qualified Code(s): F29 - Unspecified psychosis not due to a substance or known physiological condition (2) Acute prerenal azotemia: Start date: 04/26/19 Start time: 13:50 Status: Acute Assessment and plan: Resolved. (3) Hyperglycemia: Start date: 04/26/19 Start time: 13:51 Status: Acute Assessment and plan: BGL 96 this am. A1c Pending (4) Hypokalemia: Start date: 04/26/19 Start time: 13:51 Status: Acute Assessment and plan: Resolved potassium 4.1 Above case was discussed with Dr. Styles who is in agreement. Subjective Subjective Patient reports: other Interval history since last seen: Appears to be manic. Writing on glass in room, irrational thoughts, writing with crayons all over paper. Second cert this afternoon while waiting placement. Patient appears to have flight of ideas rambling on different topics. Exam Narrative Exam Narrative: Const: Older male sitting up in bed, expressive with ideas, talking without stopping Eyes: PERRLA Chest: normal inspection Resp: Even unlabored, able to complete sentences without difficulty. LSCTAB, Cardio: regular rate and rhythm, no murmur GI: BSX4, non distended. Psych: flight of ideas, disheveled, appears to be manic. Objective Objective Clinical Data: Abnormal lab results 04/26/19 Range/Units 07:10 Chloride 108 H (98-107) mmol/L Vital Signs Temperature 36.6 C 04/26/19 12:17 Temperature Source Temporal Artery Scan 04/26/19 12:17 Pulse 71 04/26/19 12:17 Pulse Rhythm Regular 04/26/19 10:00 Pulse 103 H 04/25/19 16:16 Respiratory Rate 17 04/26/19 12:17 Respiratory Effort 04/26/19 10:00 Respiratory Depth Normal 04/26/19 10:00 Blood Pressure 131/70 04/26/19 12:17 Blood Pressure Mean 91 04/25/19 16:16 Blood Pressure Position Supine 04/25/19 09:23 Pulse Oximetry 100 04/26/19 12:17 Respiratory End-tidal CO2 25 04/25/19 10:40 Oxygen Delivery Method Room Air 04/26/19 12:17 Oxygen Flow Rate 0 04/26/19 12:17 End Tidal Co2 21 04/25/19 09:23 Pain Level 0 04/26/19 12:17 Comment 04/25/19 09:23 Intake & Output 04/25/19 04/26/19 04/26/19 23:59 11:59 23:59 Intake Total 1250 / 1250 Balance 1250 / 1150 Weight 81.1 kg Intake: IV 1000 / 1000 Oral 250 / 250 Other: Urine Color Yellow Urine Appearance Clear Clear Comment Per patient Voiding Methods Toilet Toilet Laboratory Results WBC 10.34 k/cumm (4.4-10.8) 04/25/19 09:17 RBC 4.88 m/cumm (4.50-6.00) 04/25/19 09:17 Hgb 14.0 g/dL (13.5-17.5) 04/25/19 09:17 Hct 42.6 % (40.0-50.0) 04/25/19 09:17 MCV 87.3 fL (80-95) 04/25/19 09:17 MCH 28.7 pg (27.0-33.0) 04/25/19 09:17 MCHC 32.9 g/dL (32.0-36.0) 04/25/19 09:17 RDW 14.8 % (11.8-14.1) H 04/25/19 09:17 Plt Count 273 x1000/uL (130-400) 04/25/19 09:17 MPV 9.1 fL (8.0-11.0) 04/25/19 09:17 Immature Gran % 0.2 04/25/19 09:17 Neutrophils % 62.5 04/25/19 09:17 Lymphocytes % 28.3 04/25/19 09:17 Monocytes % 7.4 04/25/19 09:17 Eosinophils % 1.2 04/25/19 09:17 Basophils % 0.4 04/25/19 09:17 Absolute Neutrophils 6.46 k/cumm (1.2-6.7) 04/25/19 09:17 Absolute Lymphocytes 2.93 k/cumm (1.2-3.4) 04/25/19 09:17 Absolute Monocytes 0.77 k/cumm (0.11-0.7) H 04/25/19 09:17 Absolute Eosinophils 0.12 k/cumm (0.0-0.7) 04/25/19 09:17 Absolute Basophils 0.04 k/cumm (0.0-0.2) 04/25/19 09:17 Sodium 142 mmol/L (136-145) 04/26/19 07:10 Potassium 4.1 mmol/L (3.5-5.1) D 04/26/19 07:10 Chloride 108 mmol/L (98-107) H 04/26/19 07:10 Carbon Dioxide 23.8 mmol/L (21.0-32.0) 04/26/19 07:10 Anion Gap 10.2 mmol/L (3-11) 04/26/19 07:10 BUN 16 mg/dL (7-18) D 04/26/19 07:10 Creatinine 0.88 mg/dL (0.70-1.30) D 04/26/19 07:10 Estimated GFR/1.73 m2 >= 60.00 (mL/min/1.73m2) 04/26/19 07:10 Glucose 96 mg/dL (70-100) D 04/26/19 07:10 Calcium 8.9 mg/dL (8.5-10.1) 04/26/19 07:10 Magnesium 2.2 mg/dL (1.8-2.4) 04/26/19 07:10 Total Bilirubin 0.9 mg/dL (0.2-1.0) 04/25/19 09:17 AST 19 U/L (15-37) 04/25/19 09:17 ALT 26 U/L (16-63) 04/25/19 09:17 Alkaline Phosphatase 53 U/L (46-116) 04/25/19 09:17 Ammonia 27 umol/L (11-32) 04/25/19 09:17 Troponin I < 0.05 ng/mL (0.00-0.06) 04/25/19 09:17 Total Protein 7.3 g/dL (6.4-8.2) 04/25/19 09:17 Albumin 3.9 g/dL (3.4-5.0) 04/25/19 09:17 TSH 1.33 uIU/mL (0.36-3.74) 04/25/19 09:17 Urine Color Yellow (Yellow) 04/25/19 10:10 Urine Clarity Clear (Clear) 04/25/19 10:10 Urine pH 5.0 (5-8) 04/25/19 10:10 Ur Specific [place] >= 1.030 (1.005-1.025) H 04/25/19 10:10 Urine Protein 30 mg/dL (Negative) H 04/25/19 10:10 Urine Ketones 15 mg/dL (Negative) H 04/25/19 10:10 Urine Blood Trace-intact (Negative) H 04/25/19 10:10 Urine Nitrite Negative (Negative) 04/25/19 10:10 Urine Bilirubin Negative (Negative) 04/25/19 10:10 Urine Urobilinogen 0.2 EU/dL (Up TO 0.2) 04/25/19 10:10 Ur Leukocyte Esterase Negative (Negative) 04/25/19 10:10 Urine RBC 3-5 (0-2) H 04/25/19 10:10 Urine WBC 3-5 HPF (0-5) 04/25/19 10:10 Ur Epithelial Cells Few HPF (Negative) 04/25/19 10:10 Urine Crystals HPF (Negative) 04/25/19 10:10 Urine Bacteria HPF (Negative) 04/25/19 10:10 Urine Casts 20-50 fine granular LPF (Negative) 04/25/19 10:10 Urine Mucus Moderate (Negative) 04/25/19 10:10 Ur Culture Indicated? Yes 04/25/19 10:10 Urine Glucose 250 mg/dL (Negative) H 04/25/19 10:10 Urine Opiates Screen Negative (Negative) 04/25/19 10:10 Urine Methadone Screen Negative (Negative) 04/25/19 10:10 Ur Barbiturates Screen Negative (Negative) 04/25/19 10:10 Ur Tricyclics Screen Negative (Negative) 04/25/19 10:10 Ur Amphetamines Screen Negative (Negative) 04/25/19 10:10 U Benzodiazepines Scrn Negative (Negative) 04/25/19 10:10 Urine Cocaine Screen Negative (Negative) 04/25/19 10:10 Ur THC Screen Positive (Negative) A 04/25/19 10:10 Ethyl Alcohol < 3.0 mg/dL (<3) 04/25/19 09:17
--- NOTE | 2019-04-26 14:17 | PHARADMIT ---
Admission Pharmacy Clinical Review psychosis Code Status Full Code Current Weight wgt-81.1 kg Renally Cleared and Narrow Therapeutic Index Meds CrCl~95 mL/min Meds-OK QTc Value / Action Taken QTc-472 (Home med Amitriptyline) BP Control, Fever BP-131/70 Tmax-37.1C Electrolytes reviewed Na-142 K+4.1 Mag-2.2 DVT Prophylaxis No No Opiate Usage / Scheduled Bowel Regimen Ordered Plt/SCr for Heparin / Enoxaparin Plts-273 SCr-0.88 INR for Warfarin NA H/H stable, WBC/Bands H&H- 14.0/42.6 WBC-10.34 Antibiotic appropriateness none Cultures and Sensitivities Urine- no growth/24hrs Surgical ABX d/c within 24 hr NA DM control / Insulin Dosing BG-96 Heart Failure (Check EF%) (MARCOS's, B-Block, Diuretics) none IV to PO Switch No Home Meds Reviewed Yes Home Meds Not Ordered Amitriptyline Comments
[2019-04-26 15:42] VITALS: BP 121/7; PULSE 87; RESP 18; TEMP 36.7; O2SAT 99
--- NOTE | 2019-04-26 19:47 | CMPROGNOTE_ITS ---
Care Management Progress Note Jared was sitting up and engaged in conversation with the CPSO. Would like to go home but is easily redirected and listens to the explanation and is willing to allow us to help him Sso agrees tostay without any altercations. INVOLUNTARY FOR INPATIENT PSYCHIATRIC STABILIZATION. Patient is not able to ex press his needs due to tangential flights of ideas that just all seem to end up together in a few sentences. There have been no outbursts of agitated behavior. Jared cannot articulate his wishes for treatment. He is a danger to himself in that he has no impulse control and crosses into the personal space of others without any filter. He is a high risk for elopement. Second Certification completed this afternoon by Dr. Alejandra from [facility]. He will remain on involuntary status and we will continue to seek inpatient psychiatric admission. Safety plan has been established with patient who has limited ability to participate, and care team, to adhere to patient goals, identify restrictions based on behavioral status, address nutrition, and determine allowed personal belongings, tools for hygiene and personal care. Determine level of activity including ambulation, level of supervision, visitors, and determine privileges based on behaviors and level of engagement by patient. Safety Huddle Participants: Louisa; nursing micrographics services supervisor, Notified but unable to attend, Michelle; Lucas MERCADO, [facility] Supervisor Shop, MARCELA Moreira- RN, Ryan, RN SAFETY PLAN: 1. Will remain on suicide precautions and in paper clothes or hospital gown. 2. Will remain in room under direct supervision of one-on-one staff at all times provided by CPSO, DINKEY ENGINEER, EMT, BROWNFIELD REDEVELOPMENT SPECIALIST towel rolling machine operator. 3. May have paper cups, plates, finger foods as well as a safety spoon with which to eat meals. [facility] staff will be responsible for accounting of utensils after meals. 4. Follow [facility] Management of the Admitted Behavioral Health Patient policy. 5. Bathroom available in room, shower as needed per RN. 6. No personal belongings permitted at this time. 7. Brother, Son and Daughter may visit. (Klaudia Mayer Dan) 8. No phone 9. TV and remote at the discretion of nursing 10. Crayons and Paper are permitted 11. Due to INVOLUNTARY status, Jared must remain in the hospital. High risk for elopement. Contact the [facility] structural ironworker to re-evaluate and assist with de-escalation. Bed Coordination Updates: [facility] [place]: no beds today [place]: No beds today [facility] [place]- [place] beds today [facility]- No beds today Patient is currently Involuntarily at [facility] and seeking inpatient psychiatric admission when a bed becomes available. [facility] Frontline Supervisor Shop will continue seeking placement. Please contact the Machine Made Shoe Unit Worker Tuber Machine Operator ([phone]) and [facility] Supervisor Shop ([phone]) for any needed changes in the Safety Plan. Safety plan has been provided to interdepartmental care team.
[2019-04-26 19:55] VITALS: BP 103/60; PULSE 76; RESP 17; TEMP 36.4; O2SAT 98
--- NOTE | 2019-04-26 19:58 | PDOC.CMSAFE ---
Care Management Safety Plan INVOLUNTARY FOR INPATIENT PSYCHIATRIC STABILIZATION. Patient is not able to express his needs due to tangential flights of ideas that just all seem to end up together in a few sentences. There have been no outbursts of agitated behavior. Jared cannot articulate his wishes for treatment. He is a danger to himself in that he has no impulse control and crosses into the personal space of others without any filter. He is a high risk for elopement. Second Certification completed this afternoon by Dr. Alejandra from [facility]. He will remain on involuntary status and we will continue to seek inpatient psychiatric admission. Safety plan has been established with patient who has limited ability to participate, and care team, to adhere to patient goals, identify restrictions based on behavioral status, address nutrition, and determine allowed personal belongings, tools for hygiene and personal care. Determine level of activity including ambulation, level of supervision, visitors, and determine privileges based on behaviors and level of engagement by patient. SAFETY PLAN: DD 04/26/19 16:00 M/S Room 235 1. Will remain on suicide precautions and in paper clothes or hospital gown. 2. Will remain in room under direct supervision of one-on-one staff at all times provided by CPSO, PRINCIPAL TECHNICAL WRITER, EMT, PSYCHIATRIC LPN buckle strap drum operator. 3. May have paper cups, plates, finger foods as well as a safety spoon with which to eat meals. [facility] staff will be responsible for accounting of utensils after meals. 4. Follow [facility] Management of the Admitted Behavioral Health Patient policy. 5. Bathroom available in room, shower as needed per RN. 6. No personal belongings permitted at this time. 7. Brother, Son and Daughter may visit. (Klaudia Mayer Dan) 8. No phone in room. May call family using unit phone. 9. TV and remote at the discretion of nursing 10. Crayons and Paper are permitted 11. Due to INVOLUNTARY status, Jared must remain in the hospital. High risk for elopement. Contact the [facility] steam trap worker to re-evaluate and assist with de-escalation. Patient is currently Involuntarily at [facility] and seeking inpatient psychiatric admission when a bed becomes available. [facility] Frontline Production Bow Maker will continue seeking placement. Please contact the Automotive Glazier Glazier Apprentice ([phone]) and [facility] Production Bow Maker ([phone]) for any needed changes in the Safety Plan. Safety plan has been provided to interdepartmental care team.
[2019-04-27 01:39] VITALS: BP 102/64; PULSE 76; RESP 21; TEMP 36.2; O2SAT 98
[2019-04-27 04:28] VITALS: BP 103/62; PULSE 69; RESP 19; TEMP 35.8; O2SAT 98
[2019-04-27 04:55] LABS: Hemoglobin A1C 6.2 % (4.5-6.2)
[2019-04-27] MEDS: Multivitamin TAB 1 TAB PO (07:40)
[2019-04-27] MEDS: Thiamine 100 MG TAB PO (07:40)
[2019-04-27 08:00] VITALS: BP 124/78; PULSE 94; RESP 18; TEMP 36.6; O2SAT 98
--- NOTE | 2019-04-27 10:21 | PDOC.CMSAFE ---
Care Management Safety Plan INVOLUNTARY FOR INPATIENT PSYCHIATRIC STABILIZATION. Jared is unable to express his needs due to tangential flights of ideas. He presents loudly, but pleasantly with no outbursts of agitated behavior. Jared cannot articulate his wishes for treatment. He lacks impulse control and situational awareness of others. He is a high risk for elopement, but thus far has been re-directed without issue. He visited with his children this morning and though his thoughts spun, he was consistent in certain areas of historical figures, entertainment figures, Christian, religions and theoretical rhetoric. Though he presented with flight of ideas, he appeared only to want to be heard and did not escalate when interrupted or redirected. He apologized in a sense as he explained that people do not have the time to listen to all he has to say. He made good eye contact, appeared sincere and passionate, but not in an overly escalated or dangerous way. Second Certification completed by Dr. Alejandra from [facility]. He will remain on involuntary status and inpatient psychiatric admission will continue to be sought. He was assessed by Martha Gonzalez of [facility] who found Jared meets continued criteria for placement. NO CHANGES TO SAFETY PLAN AT THIS TIME. Safety plan has been established with patient who has limited ability to participate, and care team, to adhere to patient goals, identify restrictions based on behavioral status, address nutrition, and determine allowed personal belongings, tools for hygiene and personal care. Determine level of activity including ambulation, level of supervision, visitors, and determine privileges based on behaviors and level of engagement by patient. SAFETY PLAN: DD 04/27/19 M/S Room 235 1. Will remain on suicide precautions and in paper clothes or hospital gown. 2. Will remain in room under direct supervision of one-on-one staff at all times provided by CPSO, REGISTERED NURSE RENAL, EMT, TECHNOLOGY ARCHITECT active directory systems administrator. 3. May have paper cups, plates, finger foods as well as a safety spoon with which to eat meals. [facility] staff will be responsible for accounting of utensils after meals. 4. Follow [facility] Management of the Admitted Behavioral Health Patient policy. 5. Bathroom available in room, shower as needed per RN. 6. No personal belongings permitted at this time. 7. Brother, Son and Daughter may visit. (Klaudia Mayer, Tonny) 8. No phone in room. May call family using unit phone. 9. TV and remote at the discretion of nursing 10. Crayons and Paper are permitted at this time. 11. Due to INVOLUNTARY status, Jared must remain in the hospital. High risk for elopement. Contact the [facility] nozzle and sleeve worker to re-evaluate and assist with de-escalation. Patient is currently Involuntarily at [facility] and seeking inpatient psychiatric admission when a bed becomes available. [facility] Frontline Brooch Maker Novelty will continue seeking placement. Please contact the Spark Plug Tester Barrel Endshaker Adjuster ([phone]) and [facility] Brooch Maker Novelty ([phone]) for any needed changes in the Safety Plan. Safety plan has been provided to interdepartmental care team.
--- NOTE | 2019-04-27 10:24 | CMPROGNOTE_ITS ---
Care Management Progress Note 0930 CM paged information officer [facility] to inquire to bed coordination and planning. 0945 CM spoke with Lucas, mud car worker who reported Martha Velasco; [facility] and herself would be arriving to [facility] within the hour to assess Jared. Lucas reported placement would be sought at [facility] and [facility]. 1025 Lucas arrived to assess patient, and reported Martha Velasco would arrive shortly. 1230 Martha Velasco assessed patient, reported Lucas was working on bed placement. 1600 CM inquired as to updates via electronic message. Lucas called this food writer reported she had just spoken with [facility] and they did not have a referral on Jared. CM faxed referral. 2000 CM spoke to BR who reported Jared would not be admitted tonight as MD had to review referral due to Involuntary status.
--- NOTE | 2019-04-27 10:24 | PDOC.CMPRO ---
Care Management Progress Note 0930 CM paged rn occupational health [facility] to inquire to bed coordination and planning. 0945 CM spoke with Lucas, telecommunications linesworker who reported Martha Velasco; [facility] and herself would be arriving to [facility] within the hour to assess Jared. Lucas reported placement would be sought at [facility] and [facility]. 1025 Lucas arrived to assess patient, and reported Martha Velasco would arrive shortly. 1230 Martha Velasco assessed patient, reported Lucas was working on bed placement. 1600 CM inquired as to updates via electronic message. Lucas called this medical underwriter reported she had just spoken with [facility] and they did not have a referral on Jared. CM faxed referral. 2000 CM spoke to BR who reported Jared would not be admitted tonight as MD had to review referral due to Involuntary status.
--- NOTE | 2019-04-27 13:22 | PGE_ITS ---
Date of Service Date of service: 04/27/19 Time of Service: 13:22 Assessment and Plan Assessment and plan (1) Psychosis: Start date: 04/27/19 Start time: 13:24 Status: Acute Assessment and plan: Awaiting placement at this time. Will remain in Qualifiers: Psychosis type: unspecified psychosis type Qualified Code(s): F29 - Unspecified psychosis not due to a substance or known physiological condition (2) Acute prerenal azotemia: Start date: 04/27/19 Start time: 13:24 Status: Acute Assessment and plan: Resolved. (3) Hyperglycemia: Start date: 04/27/19 Start time: 13:25 Status: Acute Assessment and plan: a1c 6.2, fingerstick 100. D/C fingersticks (4) Hypokalemia: Start date: 04/27/19 Start time: 13:25 Status: Acute Assessment and plan: Resolved Above case was discussed with Dr. Styles who is in agreement. Subjective Subjective Patient reports: no new complaints Interval history since last seen: Appears to be manic. Writing on glass in room, irrational thoughts, writing with crayons all over paper. Second cert this afternoon while waiting placement. Patient appears to have flight of ideas rambling on different topics. Exam Narrative Exam Narrative: Const: Older male sitting up in chair in espinal with 1:1 patient observer Eyes: PERRLA Chest: normal inspection Resp: Even unlabored, able to complete sentences without difficulty. LSCTAB, Cardio: regular rate and rhythm, no murmur GI: BSX4, non distended. Psych: flight of ideas, disheveled, appears to be manic. Objective Objective Clinical Data: Vital Signs Temperature 36.6 C 04/27/19 08:00 Temperature Source Tympanic 04/27/19 08:00 Pulse 94 H 04/27/19 08:00 Pulse Rhythm Regular 04/27/19 09:16 Pulse 103 H 04/25/19 16:16 Respiratory Rate 18 04/27/19 08:00 Respiratory Effort 04/27/19 09:16 Respiratory Depth Normal 04/27/19 09:16 Respiratory Pattern Normal 04/27/19 09:16 Blood Pressure 124/78 04/27/19 08:00 Blood Pressure Mean 91 04/25/19 16:16 Blood Pressure Position Supine 04/25/19 09:23 Pulse Oximetry 98 04/27/19 08:00 Respiratory End-tidal CO2 25 04/25/19 10:40 Oxygen Delivery Method Room Air 04/27/19 08:00 Oxygen Flow Rate 0 04/27/19 08:00 End Tidal Co2 21 04/25/19 09:23 Pain Level 0 04/27/19 08:00 Comment 04/25/19 09:23 Intake & Output 04/26/19 04/27/19 04/27/19 23:59 11:59 23:59 Intake Total 600 / 600 Balance 600 / 600 Intake: Oral 600 / 600 Other: Urine Color Yellow Urine Appearance Clear Clear Urine Odor Normal Comment Pt voiding ad lynn, denies any problems. Voiding Methods Toilet Toilet Laboratory Results WBC 10.34 k/cumm (4.4-10.8) 04/25/19 09:17 RBC 4.88 m/cumm (4.50-6.00) 04/25/19 09:17 Hgb 14.0 g/dL (13.5-17.5) 04/25/19 09:17 Hct 42.6 % (40.0-50.0) 04/25/19 09:17 MCV 87.3 fL (80-95) 04/25/19 09:17 MCH 28.7 pg (27.0-33.0) 04/25/19 09:17 MCHC 32.9 g/dL (32.0-36.0) 04/25/19 09:17 RDW 14.8 % (11.8-14.1) H 04/25/19 09:17 Plt Count 273 x1000/uL (130-400) 04/25/19 09:17 MPV 9.1 fL (8.0-11.0) 04/25/19 09:17 Immature Gran % 0.2 04/25/19 09:17 Neutrophils % 62.5 04/25/19 09:17 Lymphocytes % 28.3 04/25/19 09:17 Monocytes % 7.4 04/25/19 09:17 Eosinophils % 1.2 04/25/19 09:17 Basophils % 0.4 04/25/19 09:17 Absolute Neutrophils 6.46 k/cumm (1.2-6.7) 04/25/19 09:17 Absolute Lymphocytes 2.93 k/cumm (1.2-3.4) 04/25/19 09:17 Absolute Monocytes 0.77 k/cumm (0.11-0.7) H 04/25/19 09:17 Absolute Eosinophils 0.12 k/cumm (0.0-0.7) 04/25/19 09:17 Absolute Basophils 0.04 k/cumm (0.0-0.2) 04/25/19 09:17 Sodium 142 mmol/L (136-145) 04/26/19 07:10 Potassium 4.1 mmol/L (3.5-5.1) D 04/26/19 07:10 Chloride 108 mmol/L (98-107) H 04/26/19 07:10 Carbon Dioxide 23.8 mmol/L (21.0-32.0) 04/26/19 07:10 Anion Gap 10.2 mmol/L (3-11) 04/26/19 07:10 BUN 16 mg/dL (7-18) D 04/26/19 07:10 Creatinine 0.88 mg/dL (0.70-1.30) D 04/26/19 07:10 Estimated GFR/1.73 m2 >= 60.00 (mL/min/1.73m2) 04/26/19 07:10 Glucose 96 mg/dL (70-100) D 04/26/19 07:10 Hemoglobin A1c 6.2 % (4.5-6.2) 04/26/19 07:10 Calcium 8.9 mg/dL (8.5-10.1) 04/26/19 07:10 Magnesium 2.2 mg/dL (1.8-2.4) 04/26/19 07:10 Total Bilirubin 0.9 mg/dL (0.2-1.0) 04/25/19 09:17 AST 19 U/L (15-37) 04/25/19 09:17 ALT 26 U/L (16-63) 04/25/19 09:17 Alkaline Phosphatase 53 U/L (46-116) 04/25/19 09:17 Ammonia 27 umol/L (11-32) 04/25/19 09:17 Troponin I < 0.05 ng/mL (0.00-0.06) 04/25/19 09:17 Total Protein 7.3 g/dL (6.4-8.2) 04/25/19 09:17 Albumin 3.9 g/dL (3.4-5.0) 04/25/19 09:17 TSH 1.33 uIU/mL (0.36-3.74) 04/25/19 09:17 Urine Color Yellow (Yellow) 04/25/19 10:10 Urine Clarity Clear (Clear) 04/25/19 10:10 Urine pH 5.0 (5-8) 04/25/19 10:10 Ur Specific [place] >= 1.030 (1.005-1.025) H 04/25/19 10:10 Urine Protein 30 mg/dL (Negative) H 04/25/19 10:10 Urine Ketones 15 mg/dL (Negative) H 04/25/19 10:10 Urine Blood Trace-intact (Negative) H 04/25/19 10:10 Urine Nitrite Negative (Negative) 04/25/19 10:10 Urine Bilirubin Negative (Negative) 04/25/19 10:10 Urine Urobilinogen 0.2 EU/dL (Up TO 0.2) 04/25/19 10:10 Ur Leukocyte Esterase Negative (Negative) 04/25/19 10:10 Urine RBC 3-5 (0-2) H 04/25/19 10:10 Urine WBC 3-5 HPF (0-5) 04/25/19 10:10 Ur Epithelial Cells Few HPF (Negative) 04/25/19 10:10 Urine Crystals HPF (Negative) 04/25/19 10:10 Urine Bacteria HPF (Negative) 04/25/19 10:10 Urine Casts 20-50 fine granular LPF (Negative) 04/25/19 10:10 Urine Mucus Moderate (Negative) 04/25/19 10:10 Ur Culture Indicated? Yes 04/25/19 10:10 Urine Glucose 250 mg/dL (Negative) H 04/25/19 10:10 Urine Opiates Screen Negative (Negative) 04/25/19 10:10 Urine Methadone Screen Negative (Negative) 04/25/19 10:10 Ur Barbiturates Screen Negative (Negative) 04/25/19 10:10 Ur Tricyclics Screen Negative (Negative) 04/25/19 10:10 Ur Amphetamines Screen Negative (Negative) 04/25/19 10:10 U Benzodiazepines Scrn Negative (Negative) 04/25/19 10:10 Urine Cocaine Screen Negative (Negative) 04/25/19 10:10 Ur THC Screen Positive (Negative) A 04/25/19 10:10 Ethyl Alcohol < 3.0 mg/dL (<3) 04/25/19 09:17
--- NOTE | 2019-04-27 13:35 | PDOC.MHCN_ITS ---
Date of service: 04/27/19 Time of Service: 13:35 Mental Health Crisis Note Presenting Issue How did you arrive at the ED and why did you come: Law enforcement brought the patient to [facility] ([facility]) to be evaluated for safety. Precipitating Factors The patient is on Emergency Examination (EE) status as of 04/25/2019. Refer to Application for Emergency Examination dated 04/25/2019 written by Rodrigo Bran, [facility] Emergency Clinician. Disposition BEHAVIOR: Cooperative with this clinician and animated at times during our conversations. EYE CONTACT: Appropriate eye contact at times and also intense at times. MOOD: Depressed and anxious. AFFECT: Expansive affect with rambling speech and tangential thought process. APPETITE: Patient reports that his taste buds ability to taste have decreased and his hunger has diminished since October 2018 after having Shingles. However he reports eating well while at [facility]. SLEEP(trouble falling/staying asleep: Patient reports struggling with his ability to sleep since October 2018 after experiencing extreme pain from having Si ngles. However he reports sleeping well while at [facility]. Plan Patient will remain at [facility] until a psychiatric bed can be secured for admission. Lucas Villalta, [facility] Emergency Clinician, sent referrals to the [facility] and [facility] as they were the hospitals with psychiatric bed availability. Signature Clinician's Name/Title: Vadim Kapoor, [facility] Emergency Clinician, BA, [facility]
--- NOTE | 2019-04-27 13:35 | PDOC.MHCN ---
Date of service: 04/27/19 Time of Service: 13:35 Mental Health Crisis Note Presenting Issue How did you arrive at the ED and why did you come: Law enforcement brought the patient to [facility] ([facility]) to be evaluated for safety. Precipitating Factors The patient is on Emergency Examination (EE) status as of 04/25/2019. Refer to Application for Emergency Examination dated 04/25/2019 written by Rodrigo Bran, [facility] Emergency Clinician. Disposition BEHAVIOR: Cooperative with this clinician and animated at times during our conversations. EYE CONTACT: Appropriate eye contact at times and also intense at times. MOOD: Depressed and anxious. AFFECT: Expansive affect with rambling speech and tangential thought process. APPETITE: Patient reports that his taste buds ability to taste have decreased and his hunger has diminished since October 2018 after having Shingles. However he reports eating well while at [facility]. SLEEP(trouble falling/staying asleep: Patient reports struggling with his ability to sleep since October 2018 after experiencing extreme pain from having Singles. However he reports sleeping well while at [facility]. Plan Patient will remain at [facility] until a psychiatric bed can be secured for admission. Lucas Villalta, [facility] Emergency Clinician, sent referrals to the [facility] and [facility] as they were the hospitals with psychiatric bed availability. Signature Clinician's Name/Title: Vadim Kapoor, [facility] Emergency Clinician, BA, [place]
[2019-04-27 16:51] VITALS: BP 125/83; PULSE 79; RESP 18; TEMP 36; O2SAT 99
[2019-04-28] MEDS: LORazepam 2 MG/ML VIAL IM (06:23)
[2019-04-28] MEDS: Haloperidol 5 MG/ML VIAL IM (06:23)
[2019-04-28 06:28] VITALS: RESP 24
[2019-04-28] MEDS: diphenhydrAMINE 50 MG/ML VIAL IM (06:33)
--- NOTE | 2019-04-28 06:33 | RES.FACE_ITS ---
Date of service: 04/28/19 Time of Service: 06:28
--- NOTE | 2019-04-28 06:33 | W.RSTF2F ---
Date of service: 04/28/19 Time of Service: 06:28
[2019-04-28 08:11] VITALS: BP 98/64; PULSE 64; RESP 16; TEMP 36.1; O2SAT 94
--- NOTE | 2019-04-28 09:32 | CMPROGNOTE_ITS ---
Care Management Progress Note INVOLUNTARY FOR INPATIENT PSYCHIATRIC STABILIZATION. Jared required CODE MARTIN intervention this morning per RN. Second Certification completed by Dr. Alejandra from [facility]. Uncertainty of involuntary hold from [facility] today and [facility] requested process be re-started due to lack of specific information in certification paperwork. He was assessed by Giovanni of [facility] who found Jared meets continued criteria for placement- see progress note for further information regarding involuntary status issues with Department of Mental Health. NO CHANGES TO SAFETY PLAN AT THIS TIME. Safety plan has been established with patient who has limited ability to pa rticipate, and care team, to adhere to patient goals, identify restrictions based on behavioral status, address nutrition, and determine allowed personal belongings, tools for hygiene and personal care. Determine level of activity including ambulation, level of supervision, visitors, and determine privileges based on behaviors and level of engagement by patient. SAFETY PLAN: DD 04/27/19 M/S Room 235 1. Will remain on suicide precautions and in paper clothes or hospital gown. 2. Will remain in room under direct supervision of one-on-one staff at all times provided by CPSO, CONFORMAL PAD FORMER, EMT, SET UP WORKER application support manager. 3. May have paper cups, plates, finger foods as well as a safety spoon with which to eat meals. [facility] staff will be responsible for accounting of utensils after meals. 4. Follow [facility] Management of the Admitted Behavioral Health Patient policy. 5. Bathroom available in room, shower as needed per RN. 6. No personal belongings permitted at this time. 7. Brother, Son and Daughter may visit. (Klaudia Mayer Dan) 8. No phone in room. May call family using unit phone. 9. TV and remote at the discretion of nursing 10. Crayons and Paper are permitted at this time. 11. Due to INVOLUNTARY status, Jared must remain in the hospital. High risk for elopement. Contact the [facility] layout worker to re-evaluate and assist with de-escalation. Patient is currently Involuntarily at [facility] and seeking inpatient psychiatric admission when a bed becomes available. [facility] Frontline Compressor Service Technician will continue seeking placement. Please contact the Assessment Counselor Rn Imaging ([phone]) and [facility] Compressor Service Technician ([phone]) for any needed changes in the Safety Plan. Safety plan has been provided to interdepartmental care team.
--- NOTE | 2019-04-28 09:33 | CMPROGNOTE_ITS ---
Care Management Progress Note 09 CM spoke with BR who reported their MD was requesting a brain MRI due to uncertainty about diagnosis and causes. 924 CM notified Hospitalist who reported an MRI was not recommended. 929 CM spoke with Uzma of [facility] to inquire to bed coordination and planning, Uzma was unaware the patient was here. CM provided case review and BR request for MRI of the brain, which Hospitalist reports is not recommended at this time and would require Jared be medicated. 1400 Uzma reported that [facility] had revoked the EE due to lack of specific information though the 2nd Certification had been approved. Uzma reported [facility] was unwilling to present the information to the courts, and the Involuntary hold would at 1500. Uzma reported the paperwork would need to be restarted from the beginning. The hospitalists on M/S are not currently designated to compete the First Certification Physician statement. [address] Bell in ER to complete certification. 1500 CM met with Jared's children Klaudia and Martinez, as did Uzma of [facility]. CM reviewed known information regarding current barriers to disposition and mental health stabilization. CM provided supportive listening as Jarde's children expressed their concerns with lack of coordination of treatment. [address] Bell in ER to complete certification. 1900 Dr. Bell assessed patient.
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
--- NOTE | 2019-04-28 15:40 | PGE_ITS ---
Date of Service Date of service: 04/28/19 Time of Service: 15:40 Assessment and Plan Assessment and plan (1) Psychosis: Status: Acute Assessment and plan: With aggressive and erratic behavior in the community. Mental health consulted, continues to await placement. Ativan scheduled, appears sleepy, decrease to 0.5 mg TID with an additional 1 mg PRN dose. Continue safety plan with 1:1 patient observer. Mental health continues to seek placement at a psychiatric facility. Qualifiers: Psychosis type: unspecified psychosis type Qualified Code(s): F29 - Unspecified psychosis not due to a substance or known physiological condition (2) Hyperglycemia: Status: Acute Assessment and plan: Hgb A1c 6.2, fingersticks discontinued. (3) Discharge planning issues: Status: Acute Assessment and plan: He is a full code. Mental health continues to seek placement at a psychiatric facility. This case was discussed with Dr. Styles who is in agreement. Subjective Subjective Interval history since last seen: Jared Rainey is resting in bed with eyes closed. When awakened, he stated he needed the papers back that he wrote all over. He states he, feels like a fool because he went along with this. There is writing all over the wall and in the closet of his room, when questioned, he admits that he did that. The writing consists of random words, arrows. He states he also wrote on the window but it was cleaned off. He is upset that the papers and crayons were removed from his room. He falls asleep and needs to be awakened during the conversation. He denies chest pain, shortness of breath, abdominal pain, nausea or vomiting. He is eating and drinking. He reports feeling thirsty. Exam Narrative Exam Narrative: General: 63 year old man, resting in bed with eyes closed. awakens to verbal stimuli. Does not answer questions appropriately. 1:1 patient observer present. HEENT: pupils equal and round, EOMI, mucous membranes slightly dry. Neck: supple. Cardiovascular: heart has regular rate and rhythm, no murmur appreciated. Respiratory: respirations even and unlabored, lung sounds clear on limited anterior and lateral exam. GI: +bowel sounds x4 quadrants, abdomen soft, nontender on palpation, nondistended. Extremities: well perfused, no clubbing, cyanosis or edema. Hypertrophic toe nails. Objective Objective Clinical Data: Vital Signs Temperature 36.1 C L 04/28/19 08:11 Temperature Source Tympanic 04/28/19 08:11 Pulse 64 04/28/19 08:11 Pulse Rhythm Regular 04/28/19 13:14 Pulse 103 H 04/25/19 16:16 Respiratory Rate 16 04/28/19 08:11 Respiratory Effort 04/28/19 13:14 Respiratory Depth Normal 04/28/19 13:14 Respiratory Pattern Normal 04/28/19 13:14 Blood Pressure 98/64 L 04/28/19 08:11 Blood Pressure Mean 91 04/25/19 16:16 Blood Pressure Position Supine 04/25/19 09:23 Pulse Oximetry 94 L 04/28/19 08:11 Respiratory End-tidal CO2 25 04/25/19 10:40 Oxygen Delivery Method Room Air 04/28/19 08:11 Oxygen Flow Rate 0 04/28/19 08:11 End Tidal Co2 21 04/25/19 09:23 Pain Level 0 04/28/19 08:11 Comment 04/25/19 09:23 Intake & Output 04/27/19 04/28/19 04/28/19 23:59 11:59 23:59 Other: Urine Color Yellow Comment voided x 1 Stool Size Moderate Stool Characteristics Soft Voiding Methods Toilet Toilet Laboratory Results WBC 10.34 k/cumm (4.4-10.8) 04/25/19 09:17 RBC 4.88 m/cumm (4.50-6.00) 04/25/19 09:17 Hgb 14.0 g/dL (13.5-17.5) 04/25/19 09:17 Hct 42.6 % (40.0-50.0) 04/25/19 09:17 MCV 87.3 fL (80-95) 04/25/19 09:17 MCH 28.7 pg (27.0-33.0) 04/25/19 09:17 MCHC 32.9 g/dL (32.0-36.0) 04/25/19 09:17 RDW 14.8 % (11.8-14.1) H 04/25/19 09:17 Plt Count 273 x1000/uL (130-400) 04/25/19 09:17 MPV 9.1 fL (8.0-11.0) 04/25/19 09:17 Immature Gran % 0.2 04/25/19 09:17 Neutrophils % 62.5 04/25/19 09:17 Lymphocytes % 28.3 04/25/19 09:17 Monocytes % 7.4 04/25/19 09:17 Eosinophils % 1.2 04/25/19 09:17 Basophils % 0.4 04/25/19 09:17 Absolute Neutrophils 6.46 k/cumm (1.2-6.7) 04/25/19 09:17 Absolute Lymphocytes 2.93 k/cumm (1.2-3.4) 04/25/19 09:17 Absolute Monocytes 0.77 k/cumm (0.11-0.7) H 04/25/19 09:17 Absolute Eosinophils 0.12 k/cumm (0.0-0.7) 04/25/19 09:17 Absolute Basophils 0.04 k/cumm (0.0-0.2) 04/25/19 09:17 Sodium 142 mmol/L (136-145) 04/26/19 07:10 Potassium 4.1 mmol/L (3.5-5.1) D 04/26/19 07:10 Chloride 108 mmol/L (98-107) H 04/26/19 07:10 Carbon Dioxide 23.8 mmol/L (21.0-32.0) 04/26/19 07:10 Anion Gap 10.2 mmol/L (3-11) 04/26/19 07:10 BUN 16 mg/dL (7-18) D 04/26/19 07:10 Creatinine 0.88 mg/dL (0.70-1.30) D 04/26/19 07:10 Estimated GFR/1.73 m2 >= 60.00 (mL/min/1.73m2) 04/26/19 07:10 Glucose 96 mg/dL (70-100) D 04/26/19 07:10 Hemoglobin A1c 6.2 % (4.5-6.2) 04/26/19 07:10 Calcium 8.9 mg/dL (8.5-10.1) 04/26/19 07:10 Magnesium 2.2 mg/dL (1.8-2.4) 04/26/19 07:10 Total Bilirubin 0.9 mg/dL (0.2-1.0) 04/25/19 09:17 AST 19 U/L (15-37) 04/25/19 09:17 ALT 26 U/L (16-63) 04/25/19 09:17 Alkaline Phosphatase 53 U/L (46-116) 04/25/19 09:17 Ammonia 27 umol/L (11-32) 04/25/19 09:17 Troponin I < 0.05 ng/mL (0.00-0.06) 04/25/19 09:17 Total Protein 7.3 g/dL (6.4-8.2) 04/25/19 09: Albumin 3.9 g/dL (3.4-5.0) 04/25/19 09: TSH 1.33 uIU/mL (0.36-3.74) 04/25/19 09:17 Urine Color Yellow (Yellow) 04/25/19 10:10 Urine Clarity Clear (Clear) 04/25/19 10:10 Urine pH 5.0 (5-8) 04/25/19 10:10 Ur Specific [place] >= 1.030 (1.005-1.025) H 04/25/19 10:10 Urine Protein 30 mg/dL (Negative) H 04/25/19 10:10 Urine Ketones 15 mg/dL (Negative) H 04/25/19 10:10 Urine Blood Trace-intact (Negative) H 04/25/19 10:10 Urine Nitrite Negative (Negative) 04/25/19 10:10 Urine Bilirubin Negative (Negative) 04/25/19 10:10 Urine Urobilinogen 0.2 EU/dL (Up TO 0.2) 04/25/19 10:10 Ur Leukocyte Esterase Negative (Negative) 04/25/19 10:10 Urine RBC 3-5 (0-2) H 04/25/19 10:10 Urine WBC 3-5 HPF (0-5) 04/25/19 10:10 Ur Epithelial Cells Few HPF (Negative) 04/25/19 10:10 Urine Crystals HPF (Negative) 04/25/19 10:10 Urine Bacteria HPF (Negative) 04/25/19 10:10 Urine Casts 20-50 fine granular LPF (Negative) 04/25/19 10:10 Urine Mucus Moderate (Negative) 04/25/19 10:10 Ur Culture Indicated? Yes 04/25/19 10:10 Urine Glucose 250 mg/dL (Negative) H 04/25/19 10:10 Urine Opiates Screen Negative (Negative) 04/25/19 10:10 Urine Methadone Screen Negative (Negative) 04/25/19 10:10 Ur Barbiturates Screen Negative (Negative) 04/25/19 10:10 Ur Tricyclics Screen Negative (Negative) 04/25/19 10:10 Ur Amphetamines Screen Negative (Negative) 04/25/19 10:10 U Benzodiazepines Scrn Negative (Negative) 04/25/19 10:10 Urine Cocaine Screen Negative (Negative) 04/25/19 10:10 Ur THC Screen Positive (Negative) A 04/25/19 10:10 Ethyl Alcohol < 3.0 mg/dL (<3) 04/25/19 09:17
[2019-04-28 15:49] VITALS: BP 96/64; PULSE 63; RESP 16; TEMP 36.7; O2SAT 96
[2019-04-28] MEDS: LORazepam 0.5 MG TAB PO (19:39)
[2019-04-28] MEDS: risperiDONE 1 MG TAB 2 MG PO (22:18)
[2019-04-29] MEDS: LORazepam 1 MG TAB PO (05:12)
--- NOTE | 2019-04-29 10:22 | PDOC.CMSAFE ---
Care Management Safety Plan INVOLUNTARY FOR INPATIENT PSYCHIATRIC STABILIZATION. Additional second certification completed 04/29/19. Safety plan has been established with patient who has limited ability to participate, and care team, to adhere to patient goals, identify restrictions based on behavioral status, address nutrition, and determine allowed personal belongings, tools for hygiene and personal care. Determine level of activity including ambulation, level of supervision, visitors, and determine privileges based on behaviors and level of engagement by patient. SAFETY PLAN: DD 04/29/19 M/S Room 235 1. Will remain on suicide precautions and in paper clothes or hospital gown. 2. Will remain in room under direct supervision of one-on-one staff at all times provided by CPSO, REFUGE MANAGER, EMT, OFFSET MACHINE OPERATOR director of casework department. 3. May have paper cups, plates, finger foods as well as a safety spoon with which to eat meals. [facility] staff will be responsible for accounting of utensils after meals. 4. Follow [facility] Management of the Admitted Behavioral Health Patient policy. 5. Bathroom available in room, shower as needed per RN. 6. No personal belongings permitted at this time. 7. Brother, Son and Daughter may visit. ( Moreno [place] Hannah,) 8. No phone in room. Phone calls permitted as requested, per RN. 9. TV and remote permitted per RN. 10. Crayons and Paper are permitted at this time. 11. Due to INVOLUNTARY status, Jared must remain in the hospital. High risk for elopement. Contact the [facility] bindery worker to re-evaluate and assist with de-escalation. Patient is currently Involuntarily at [facility] and seeking inpatient psychiatric admission when a bed becomes available. [facility] Frontline Bath Solution Maker will continue seeking placement. Please contact the Biometric Fingerprinting Technician Private Pilot ([phone]) and [facility] Bath Solution Maker ([phone]) for any needed changes in the Safety Plan. Safety plan has been provided to interdepartmental care team.
--- NOTE | 2019-04-29 15:14 | NUR.NOTE ---
Nursing Note: 1500: called pt's daughter Klaudia and informed her about pt's pending transfer to [facility] at 1700 tonight. all questions answered.
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
--- NOTE | 2019-04-29 15:17 | CHAPLAIN ---
Wall Covering Contractor Mariana Rosarioughton said Jared's daughter requested a chief of vital statistics for Jared because he has a latter day background. Jared was walking around the hallway when I met him. He and written a series of note on the chalkboard. He said he was happy to see a enterprise architect manager. Most of our conversation was Jared talking about different historical theories and events and explaining how they are relevant to today. Jared is clearly very well versed on [place] history and the Bible. He told me he traveled [place] when Jared was younger than [age], and he talked about his observations there. He also talked about fact checking and investigating decisions and opinions of Gov. David Manuel and other people in authority. He didn't talk about his family, other than to say that he has spent more time with his son and daughter recently than he has in many years. I left when lunch arrived, but will visit again.
--- NOTE | 2019-04-29 15:19 | NUR.NOTE ---
Nursing Note: 1305: Juan Pederson called from [facility] for an update about pt. asked about lesions from previous diagnosis of shingles; none noted. reported that pt has done well t/o the day with validation and feeling that he is being heard. Juan states that he will share information with his mainframe systems administrator and that they are looking at him. information shared with CM and CC.
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
[2019-04-29 15:50] VITALS: BP 144/79; PULSE 85; RESP 18; TEMP 36.8; O2SAT 99
[2019-04-29] MEDS: LORazepam 0.5 MG TAB PO (20:17)
== END 2019-04-29 21:15 | disposition short-term general hospital (02) | DRG 885 ==
LOC: ER 13:07 → MS 17:45
PROVIDERS: Internal Medicine; Admitting Provider Internal Medicine; Emergency Provider Student in an Organized Health Care Education/Training Program; PCP Nurse Practitioner; Visit Provider Internal Medicine
DX: F29 Unspecified psychosis not due to a substance or known physiological condition (principal); R73.9 Hyperglycemia, unspecified; R39.2 Extrarenal uremia; E87.6 Hypokalemia; F32.9 Major depressive disorder, single episode, unspecified; F41.9 Anxiety disorder, unspecified; Z78.1 Physical restraint status; Z75.1 Person awaiting admission to adequate facility elsewhere; Z56.0 Unemployment, unspecified; Z63.4 Disappearance and death of family member; Z62.820 Parent-biological child conflict; Z87.820 Personal history of traumatic brain injury
CPT/HCPCS: 36415; 80048; 80053; 80307; 93005; 96360; 99220; 99232; 99233; 99239; 99285; 70450; 80320; 81003; 81015; 82140; 83036; 83735; 84443; 84484; 85025; 87086; 93010; 99226; G0378; J1200; J1630; J2060

== ENCOUNTER 2021-01-19 17:13 | Outpatient (REF) | payer OTHER, MEDICAID, SELFPAY ==
[2021-01-19 20:45] LABS: Abs Immature Grans 0.02 10^3/uL (0.0-0.06); Absolute Basophil Count 0.05 10^3/uL (0.0-0.2); Absolute Eosinophil Count 0.11 10^3/uL (0.0-0.7); Absolute Lymphocyte Count 1.77 10^3/uL (1.2-3.4); Absolute Monocyte Count 0.46 10^3/uL (0.1-0.8); Absolute Neutrophil Count 4.51 10^3/uL (1.2-6.7); Basophils % 0.7; Eosinophils % 1.6; HCT 42.7 % (40.0-50.0); HGB 13.9 g/dL (13.5-17.5); Immature Grans % 0.3; Lymphocytes % 25.6; MCH 28.8 pg (27.0-33.0); MCHC 32.6 % (32.0-36.0); MCV 88.6 fL (80-95); MPV 9.5 fL (8.0-11.0); Monocytes % 6.6; Neutrophils % 65.2; Nucleated RBC 0 %; Platelet Count 236 10^3/uL (130-400); RBC 4.82 10^6/uL (4.36-5.78); RDW 13.8 % (11.8-14.1); RDW-SD 44.8 fL; WBC 6.92 10^3/uL (4.4-10.8)
[2021-01-19 20:56] LABS: Hemoglobin A1C 6.2 % (<5.7)
[2021-01-19 20:58] LABS: ALT 23 U/L (16-63); AST 16 U/L (15-37); Albumin 3.9 g/dL (3.4-5.0); Alkaline Phosphatase 50 U/L (46-116); Anion Gap 7.8 mmol/L (3-11); BUN 11 mg/dL (7-18); Bilirubin, Total 0.7 mg/dL (0.2-1.0); CO2 27.2 mmol/L (21.0-32.0); CREATININE 0.9 mg/dL (0.70-1.30); Chloride 106 mmol/L (98-107); Glucose 107 mg/dL (74-106); Potassium 4.5 mmol/L (3.5-5.1); Sodium 141 mmol/L (136-145); TSH (W/Ref FT4) 1.45 uIU/mL (0.36-3.74)
[2021-01-23 11:36] LABS: Lyme Ab w Rflx to Lyme Confirm Negative (Negative)
== END 2021-01-19 17:14 | disposition home or self-care (01) ==
LOC: LBN 17:13
PROVIDERS: PCP Nurse Practitioner; Visit Provider Physician Assistant Medical
DX: R20.0 Anesthesia of skin (principal)
CPT/HCPCS: 80053; 83036; 84443; 85025; 86618

== ENCOUNTER 2021-05-12 10:39 | Emergency (ER) | payer MEDICAID, SELFPAY ==
[2021-05-12 10:43] VITALS: BP 124/75; PULSE 79; RESP 18; TEMP 37.2; O2SAT 94
[2021-05-12] MEDS: diphenhydrAMINE 50 MG/ML VIAL 25 MG IM (10:55)
[2021-05-12] MEDS: Midazolam 2 MG/2 ML VIAL 4 MG IM (10:55)
[2021-05-12] MEDS: Haloperidol 5 MG/ML VIAL IM (10:55)
--- NOTE | 2021-05-12 10:55 | NUR.NOTE ---
Addendum entered by Chet Londono RN 05/12/21 11:31: Yelling you hold the keys to the kingdom Original Note: 1050 patient placed in restraints arms and legs per physician order with assistance from security. Medicated. Patient yelling incoherent. Yelling You fucking idiots.
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
--- NOTE | 2021-05-12 11:25 | NUR.NOTE ---
1125 left message for daughter Klaudia to call us for an update.
[2021-05-12 11:30] LABS: Abs Immature Grans 0.03 10^3/uL (0.0-0.06); Absolute Basophil Count 0.04 10^3/uL (0.0-0.2); Absolute Eosinophil Count 0.01 10^3/uL (0.0-0.7); Absolute Lymphocyte Count 1.05 10^3/uL (1.2-3.4); Absolute Monocyte Count 0.61 10^3/uL (0.1-0.8); Absolute Neutrophil Count 7.03 10^3/uL (1.2-6.7); Basophils % 0.5; Eosinophils % 0.1; HCT 39.7 % (40.0-50.0); HGB 13.1 g/dL (13.5-17.5); Immature Grans % 0.3; MCH 29.2 pg (27.0-33.0); MCV 88.4 fL (80-95); MPV 9.1 fL (8.0-11.0); Neutrophils % 80.1; Nucleated RBC 0 %; Platelet Count 222 10^3/uL (130-400); RBC 4.49 10^6/uL (4.36-5.78); RDW 13.2 % (11.8-14.1); RDW-SD 43.4 fL; WBC 8.77 10^3/uL (4.4-10.8)
--- NOTE | 2021-05-12 11:34 | NUR.NOTE ---
1138 spoke with daughter Klaudia. She found pill bottles for Geodon and Guanfacine filled in June 2019, she states the bottles are quite full. States there are empty beer and liquor bottles in his apartment. States he had similar episode 2 years ago.
[2021-05-12 11:44] VITALS: BP 119/74; PULSE 78; TEMP 36.7; O2SAT 99
[2021-05-12 11:48] LABS: Salicylate < 2.8 mg/dL (<2.8)
[2021-05-12 11:50] LABS: Acetaminophen < 2 ug/mL (10-30)
[2021-05-12 11:51] LABS: ALT 34 U/L (16-63); AST 45 U/L (15-37); Albumin 4.1 g/dL (3.4-5.0); Alkaline Phosphatase 56 U/L (46-116); Anion Gap 14.8 mmol/L (3-11); BUN 38 mg/dL (7-18); Bilirubin, Total 1.7 mg/dL (0.2-1.0); CO2 22.2 mmol/L (21.0-32.0); CREATININE 1.3 mg/dL (0.70-1.30); Calcium 9.1 mg/dL (8.5-10.1); Chloride 102 mmol/L (98-107); Estimated GFR 55.58 (mL/min/1.73m2); Glucose 123 mg/dL (74-106); Potassium 3.3 mmol/L (3.5-5.1); Sodium 139 mmol/L (136-145); TSH (W/Ref FT4) 1.89 uIU/mL (0.36-3.74); Total Protein 7.5 g/dL (6.4-8.2)
[2021-05-12 11:51] LABS: Source Nasal/Nares
[2021-05-12 11:52] LABS: ETHANOL BLOOD < 3.0 mg/dL (<10)
[2021-05-12 11:57] LABS: Bilirubin Small (Negative); Blood Moderate (Negative); Clarity Clear (Clear); Glucose Negative (Negative); Ketones 40 mg/dL (Negative); Leukocyte Esterase Negative (Negative); Nitrite Negative (Negative); Specific Gravity >= 1.030 (1.005-1.025); Urobilinogen 0.2 EU/dL (Up TO 0.2); pH 5.5 (5-8)
[2021-05-12 12:08] LABS: Epithelial Cells Few HPF (Negative)
[2021-05-12 12:09] LABS: Bacteria Few HPF (Negative); C & S Indicated? No; Casts 5-10 Hyaline LPF (Negative); Crystals Negative HPF (Negative); Mucus Moderate (Negative)
[2021-05-12] MEDS: Lidocaine 2% Jelly 6 ML SYR (12:12)
[2021-05-12 12:23] LABS: *AMPHETAMINES SCREEN URINE Negative (Negative); *BARBITURATES SCREEN URINE Negative (Negative); *BENZODIAZEPINES SCREEN URINE Negative (Negative); Cannabinoids THC Positive (Negative); Cocaine Screen,Urine Negative (Negative); METHADONE URINE SCREEN Negative (Negative); OPIATES URINE SCREEN Negative (Negative)
[2021-05-12 12:25] LABS: Tricyclic Antidepressants Negative (Negative)
--- NOTE | 2021-05-12 12:45 | RT.EKG_ITS ---
APPROVED REPORT Exam: Resting ECG Reason for Exam: assess QT interval Patient Location: E HR:77 bpm ECG Measurements Heart Rate 77 AXIS ME 223 P 69 QRSd 144 QRS 50 QT 429 T 10 QTc 487 Conclusion Sinus rhythm...normal P axis, V-rate 60- 99 Ventricular premature complex...V complex w/ short R-R interval Prolonged ME interval...ME >220, V-rate 50- 90 Right bundle branch block...QRSd>120, terminal axis(90,270)
[2021-05-12 13:25] VITALS: BP 130/81; PULSE 76; TEMP 36.8; O2SAT 100
[2021-05-12] MEDS: MAGNESIUM SULFATE 8.12 MEQ, MULTIVITAMIN 10 ML, THIAMINE 100 MG, FOLIC ACID 1 MG in Nor... 168.867 MG IV (13:28)
[2021-05-12] MEDS: LORazepam 2 MG/ML VIAL 1 MG IVP (14:00)
[2021-05-12 14:11] LABS: COVID-19 PCR Negative (Negative)
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
--- NOTE | 2021-05-12 15:54 | CMSP_ITS ---
- If Service Date Differs Date of service: 05/12/21 Time of Service: 15:54 Care Management Safety Plan Status: Involuntary - Reason for Wait Reason for Wait: Inpatient Admission INVOLUNTARY FOR INPATIENT PSYCHIATRIC STABILIZATION. A huddle is held at approximately 16:[address] Oscar Bell, ED provider, Danay, Nursing Cullet Trucker, Chet, Charge Nurse, ANGELITA Vivas, and JESS Baez. Safety plan has been established to meet the needs of the patient, and consideration of the care team, to adhere to patient goals, identify restrictions based on behavioral status, address nutrition, and determine allowed personal belongings, tools for hygiene and personal care. Determine level of activity including ambulation, level of supervision, visitors, and determine privileges based on behaviors and level of engagement by pt. SAFETY PLAN: 1. Will remain on SI/HI precautions. In Paper Clothes 2. Will remain in room under direct supervision of one-on-one staff at all times provided by [employer], MADI, SPORTS MEDICINE COORDINATOR hydraulic rock drill operator. 3. May have paper cups, plates, finger foods as well as a cardboard spoon with which to eat meals. 4. Follow [facility] Management of the Admitted Behavioral Health Patient policy. 5. Comfort bath system only. 6. No personal belongings. 7. Visitors: Per [facility] Covid policy and at RN discretion. 8. Activities: Soft cart items, crayons, coloring book, television if available, music tablet, and other activities at RN discretion. 9. Bathroom privileges with supervision while in the ED. 10. Phone: Use of hospital phone at RN discretion. 11. Due to INVOLUNTARY status, patient is being held at [facility] by the Department of Mental Health ([facility]) until 2nd certification by [facility] Psychiatrist can be performed (within 24 hours). Staff will provide de-escalation support (CPI) as needed. If patient wishes to leave [facility], staff will contact [facility] Crisis Screener ([phone]) and On-Call Tapering Machine Operator ([phone]) as soon as possible. In the event of elopement, notify [employer] Police ([phone]). Patient is currently involuntarily at [facility]. [facility] Frontline Aboriginal Education Teacher will continue seeking placement. Please contact the Transmission Line Engineer Tapering Machine Operator ([phone]) for any needed changes to Safety Plan. Safety plan has been provided to interdepartmental care team. Patient will be transported by [facility] at time of discharge.
--- NOTE | 2021-05-12 17:22 | CMPROGNOTE_ITS ---
- If Service Date Differs Date of service: 05/12/21 Time of Service: 17:22 Care Management Progress Note S/O: Jared lives independently in an apartment in [facility]. He has a history of depression and reportedly had a first psychotic break in April of 2019, a few months after his mother's . He was subsequently hospitalized at the [facility]. Today, Jared is brought to the ED by [facility] Police Department due to aggressive and erratic behavior. Jared pre sents as delusional with mood lability. He is assessed by [facility] and deemed a person in need of treatment. A: Jared is a 65 year old male admitted to [facility] on 05/12/21 for psychosis. P: There are no available psychiatric beds this evening. Jared will remain at [facility] on involuntary status while [facility] seeks placement for him. [facility] will reassess him on a daily basis until a bed is secured. will continue to follow. - Status Status: Involuntary - Reason for Wait Reason for Wait: Inpatient Admission
--- NOTE | 2021-05-12 17:22 | PDOC.ERCMPRO ---
- If Service Date Differs Date of service: 05/12/21 Time of Service: 17:22 Care Management Progress Note S/O: Jared lives independently in an apartment in [facility]. He has a history of depression and reportedly had a first psychotic break in April of 2019, a few months after his mother's . He was subsequently hospitalized at the [facility]. Today, Jared is brought to the ED by [facility] [employer] Department due to aggressive and erratic behavior. Jared presents as delusional with mood lability. He is assessed by [facility] and deemed a person in need of treatment. A: Jared is a 65 year old male admitted to [facility] on 05/12/21 for psychosis. P: There are no available psychiatric beds this evening. Jared will remain at [facility] on involuntary status while [facility] seeks placement for him. [facility] will reassess him on a daily basis until a bed is secured. will continue to follow. - Status Status: Involuntary - Reason for Wait Reason for Wait: Inpatient Admission
[2021-05-12] MEDS: risperiDONE 0.5 MG TAB 2 MG PO (17:57)
--- NOTE | 2021-05-12 21:16 | NUR.NOTE ---
Nursing Note: RN and MD re-evaluated patient, patient continues to have delusions but appears to be less violent and more cooperative. Dr. Zhong approved to 2 limbs unrestrained. RN released patient left arm and right leg.
--- NOTE | 2021-05-12 23:21 | NUR.NOTE ---
Nursing Note: Patient removed from restraints per MD order.
[2021-05-13 07:50] VITALS: BP 121/72; PULSE 80; RESP 18; TEMP 36.5; O2SAT 94
[2021-05-13] MEDS: LORazepam 0.5 MG TAB PO (08:09)
[2021-05-13] MEDS: risperiDONE 1 MG TAB 2 MG PO ×2 (09:40→20:05)
--- NOTE | 2021-05-13 10:48 | PDOC.MHCN ---
Date of service: 05/13/21 Time of Service: 10:48 Mental Health Crisis Note Presenting Issue How did you arrive at the ED and why did you come: Client arrived at [facility] ED on 05/12/21 via [facility] police after making poor decisions and refusing a MH evaluation. Client is currently being held on EE status pending 2nd certification that is scheduled for 2:00 today. Precipitating Factors Client denies current SI/HI wit no plan or intent. Disposition BEHAVIOR: Client is laying down in hospital bed dressed in proper paper hospital attire when this publicity writer arrives via zoom. Client appears to be confused at times, but answers all questions that this publicity writer asks of him. EYE CONTACT: Client makes good eye contact with this publicity writer. MOOD: Clients mood appears to eb confused, but cooperative. AFFECT: Client presents with normal affect. APPETITE: Client states that he ate this morning after not eating for a couple of days. SLEEP(trouble falling/staying asleep: Client states that he has been sleeping well since being at the Ed. Plan Client will remain at [facility] ED pending 2nd cert at 2:00 p.m today. Safety plan in place with [facility] ED staff. Signature Clinician's Name/Title: Camille Connelly [facility] Emergnecy Clinician
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
--- NOTE | 2021-05-13 12:51 | NUR.NOTE ---
called bessie Rudolph-requested by pt. per daughter house is locked, heat is turned down, wallet and keys are safe. info relayed to pt.Nursing Note:
[2021-05-13] MEDS: LORazepam 1 MG TAB PO ×2 (14:04→20:05)
--- NOTE | 2021-05-13 16:54 | W.PSYCHCONSU ---
Date of service: 05/13/21 Time of Service: 09:30 History of Present Illness Narrative: 4 hour telepsychiatry consultation request by Dr. Zhong to evaluate symptoms of mental illness and recommend treatment. Patient was admitted to [facility] ED one day prior brought in by police after acting erratically and bizarrely in the community. He has a psychiatric history significant for depreswion and psychosis with one previos inpatient psychiatrtic admission in 2019 at [facility]. Given his severe;y imparied state, an EE was filed. Of note, he has been paranoid, experiencing auditory and visual hallucinations and acting in an aggressive and belligerent manner. His aggressive behavior required involuntary treatment and physical restarints for safety. On exam, he reports he has not been eating or drinking well of late. He is noted quite disorganized and unable to provide a coherent narrative of his recent interval. He reports not having a psychiatric provider and being unable to articulate the circumstance that preceeded his adission. He is note to demonstrate clang association and posture in a purposeless, bizarre manner. Ate also demonstrates mandaeism delusions and preoccupation. He denies active thoughts of suicide. He indicates recent alcohol and cannabis use, though cannot elaborate further. UTOX on admission is positive only for THC. 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 Assessment and Plan Assessment and plan (1) Psychosis: Status: Acute Assessment and plan: Increase risperidone to 2 mg BID Hyperactive catatonia: increase lorazepam to 1 mg TID; lorazepam 1 mg Q4H ORN upto 4 times/24H agitation: in event of emergency, consider IM haolperidol 5 mg, lorazepam 2 mg, diphenhydramine 25 mg IM uQ4H PRN up to 4 times in 24 hours Legal: on EE; Disposition: inpatient psychiatry when bed available Follow up: 05/14/21 Please call with any questions or concerns Qualifiers: Psychosis type: unspecified psychosis type Qualified Code(s): F29 - Unspecified psychosis not due to a substance or known physiological condition Review of Systems All systems reviewed & are unremarkable except as noted in HPI and below PFSH Active Problem List Discharge planning issues (Acute) Hypokalemia (Acute) Hyperglycemia (Acute) Acute prerenal azotemia (Acute) Psychosis (Acute) Medical History Abdominal pain Alcohol dependence in remission Anxiety and depression Low back pain Numbness and tingling of right arm Numbness in feet Post herpetic neuralgia Shingles Surgical History H/O arthroscopic knee surgery Social History Smoking/Tobacco Use Status: Never Smoking risk assessment performed?: Yes Alcohol Intake: current Substance use type: former substance user Additional Social history: unable to verbalize at time of triage Exam Psych Appearance: disheveled and other (psychomotor agitation) Mental Status: other (Grossly disoriented) Speech and Movement: other (purposelss poses; rapid, pressured speech with prominent clang associations) Mood: dysthymic mood Affect: labile affect and hostile Attitude: belligerent Thought Process: circumstantial, flight of ideas, illogical, loose association, perseverating, tangential and other (disoragnized) Thought Content: delusions, hallucinations, ideas of reference and obsessions (mandaeism) Insight: poor Judgment: poor Results Last Vital Signs Temp 36.5 C 05/13/21 07:50 Pulse 80 05/13/21 07:50 Resp 18 05/13/21 07:50 BP 121/72 05/13/21 07:50 Pulse Ox 94 05/13/21 07:50 Labs Result diagrams: 05/12/21 11:16 05/12/21 11:16
--- NOTE | 2021-05-13 17:21 | CMSP_ITS ---
- If Service Date Differs Date of service: 05/13/21 Time of Service: 17:21 Care Management Safety Plan Status: Involuntary - Reason for Wait Reason for Wait: Inpatient Admission INVOLUNTARY FOR INPATIENT PSYCHIATRIC STABILIZATION. Safety plan has been established to meet the needs of the patient, and consideration of the care team, to adhere to patient goals, identify restrictions based on behavioral status, address nutrition, and determine allowed personal belongings, tools for hygiene and personal care. Determine level of activity including ambulation, level of supervision, visitors, and determine privileges based on behaviors and level of engagement by pt. SAFETY PLAN: 1. Will remain on SI/HI precautions. In Paper Clothes 2. Will remain in room under direct supervision of one-on-one staff at all times provided by CPSO, HELICOPTER PILOT, PASTRY SUPERVISOR kieselguhr regenerator operator. 3. May have paper cups, plates, finger foods as well as a cardboard spoon with which to eat meals. 4. Follow [facility] Management of the Admitted Behavioral Health Patient policy. 5. Comfort bath system only. 6. No personal belongings. 7. Visitors: Per [facility] Covid policy and at RN discretion. 8. Activities: Soft cart items, crayons, coloring book, television if available, music tablet, and other activities at RN discretion. 9. Bathroom privileges with supervision while in the ED. 10. Phone: Use of hospital phone at RN discretion. 11. Due to INVOLUNTARY status, patient is being held at [facility] by the Department of Mental Health ([facility]) until 2nd certification by [facility] Psychiatrist can be performed (within 24 hours). Staff will provide de-escalation support (CPI) as needed. If patient wishes to leave [facility], staff will contact [facility] Crisis Screener ([phone]) and On-Call Art Therapy Specialist ([phone]) as soon as possible. In the event of elopement, notify [place] [employer] ([phone]). Patient is currently involuntarily at [facility]. [facility] Frontline Publication Editor will continue seeking placement. Please contact the Press Puller Art Therapy Specialist ([phone]) for any needed changes to Safety Plan. Safety plan has been provided to interdepartmental care team. Patient will be transported by qualifyor at time of discharge.
--- NOTE | 2021-05-13 17:21 | PDOC.CMSAFED ---
- If Service Date Differs Date of service: 05/13/21 Time of Service: 17:21 Care Management Safety Plan Status: Involuntary - Reason for Wait Reason for Wait: Inpatient Admission INVOLUNTARY FOR INPATIENT PSYCHIATRIC STABILIZATION. Safety plan has been established to meet the needs of the patient, and consideration of the care team, to adhere to patient goals, identify restrictions based on behavioral status, address nutrition, and determine allowed personal belongings, tools for hygiene and personal care. Determine level of activity including ambulation, level of supervision, visitors, and determine privileges based on behaviors and level of engagement by pt. SAFETY PLAN: 1. Will remain on SI/HI precautions. In Paper Clothes 2. Will remain in room under direct supervision of one-on-one staff at all times provided by CPSO, KID CLUB ATTENDANT, REGISTRATION SCHEDULING SPECIALIST supervisor reinforced steel placing. 3. May have paper cups, plates, finger foods as well as a cardboard spoon with which to eat meals. 4. Follow [facility] Management of the Admitted Behavioral Health Patient policy. 5. Comfort bath system only. 6. No personal belongings. 7. Visitors: Per [facility] Covid policy and at RN discretion. 8. Activities: Soft cart items, crayons, coloring book, television if available, music tablet, and other activities at RN discretion. 9. Bathroom privileges with supervision while in the ED. 10. Phone: Use of hospital phone at RN discretion. 11. Due to INVOLUNTARY status, patient is being held at [facility] by the Department of Mental Health ([facility]) until 2nd certification by [facility] Psychiatrist can be performed (within 24 hours). Staff will provide de-escalation support (CPI) as needed. If patient wishes to leave [facility], staff will contact [facility] Crisis Screener ([phone]) and On-Call Fire Prevention Officer ([phone]) as soon as possible. In the event of elopement, notify [place] [employer] ([phone]). Patient is currently involuntarily at [facility]. [facility] Frontline Teenage Program Director will continue seeking placement. Please contact the Fish Net Maker Fire Prevention Officer ([phone]) for any needed changes to Safety Plan. Safety plan has been provided to interdepartmental care team. Patient will be transported by [employer] at time of discharge.
--- NOTE | 2021-05-13 17:23 | CMPROGNOTE_ITS ---
- If Service Date Differs Date of service: 05/13/21 Time of Service: 17:23 Care Management Progress Note S/O: Jared met with Vincent Siddiqui, [facility] psychiatrist, for a Second Certification by Psychiatrist this afternoon. He additionally was assessed by Camille [facility] Crisis Screener, this morning and had a telehealth consult with Dr. Pradhan. Jared is more calm and cooperative today. He is taking his medication and interacts with others appropriately. He denies suicidal ideation but his thought process remains tangential. He continues to exhibit delusions of a orthodoxy nature. A: Jared is a 65 year old male admitted to [facility] on 05/12/21 for psychosis. P: There are no available psychiatric beds this evening. Jared will remain at [facility] on involuntary status while [facility] seeks placement for him. [facility] will reassess him on a daily basis until a bed is secured. will continue to follow. - Status Status: Involuntary - Reason for Wait Reason for Wait: Inpatient Admission
--- NOTE | 2021-05-13 17:23 | PDOC.ERCMPRO ---
- If Service Date Differs Date of service: 05/13/21 Time of Service: 17:23 Care Management Progress Note S/O: Jared met with Vincent Siddiqui, [facility] psychiatrist, for a Second Certification by Psychiatrist this afternoon. He additionally was assessed by Camille [facility] Crisis Screener, this morning and had a telehealth consult with Dr. Pradhan. Jared is more calm and cooperative today. He is taking his medication and interacts with others appropriately. He denies suicidal ideation but his thought process remains tangential. He continues to exhibit delusions of a samaritan nature. A: Jared is a 65 year old male admitted to [facility] on 05/12/21 for psychosis. P: There are no available psychiatric beds this evening. Jared will remain at [facility] on involuntary status while [facility] seeks placement for him. [facility] will reassess him on a daily basis until a bed is secured. will continue to follow. - Status Status: Involuntary - Reason for Wait Reason for Wait: Inpatient Admission
--- NOTE | 2021-05-13 21:18 | PDOC.MHCN ---
Date of service: 05/13/21 Time of Service: 20:05 Mental Health Crisis Note Presenting Issue How did you arrive at the ED and why did you come: Client arrived at [facility] ED on 05/12/[address] [facility] Police after making poor decisions and refusing a MH evaluation. Client is currently being held on an EE status and 2nd certification was passed at 2pm today Precipitating Factors Client denies any SI/HI or SIB Disposition BEHAVIOR: Client is laying down in the hospital bed and covered to his neck with the blanket when this commercial loan underwriter arrived via zoom. Client appears to be sleepy and confused at times but answers the questions this commercial loan underwriter asks. EYE CONTACT: Client makes good eye contact during this zoom MOOD: Clients mood is appreciative, and cooperative AFFECT: Client presents with normal affect APPETITE: Client stated that he has eaten well in the ED and that he has an appetite and also requested a dessert when the zoom is finished SLEEP(trouble falling/staying asleep: Client stated he has slept very well in the ED and that it's the best sleep he has had in weeks Plan Client will remain at [facility] in the ED until placement is found. 2nd certification was passed at 2pm this afternoon. Client is allowed to have calls from his son as well as his brother as they appear to be positive influences to the client Signature Clinician's Name/Title: Alea Calhoun Enhanced Crisis 3Rd Grade Reading Teacher
--- NOTE | 2021-05-13 21:28 | PDOC.MHCN_ITS ---
Date of service: 05/14/21 Time of Service: 09:05 Mental Health Crisis Note Presenting Issue How did you arrive at the ED and why did you come: Client arrived at [facility] ED on 05/12/[address] [facility] Police Department after making poor decisions and refusing a MH evaluation. Client is currently held on EE status awaiting placement Precipitating Factors Client denies SI/HI and SIB Disposition BEHAVIOR: Client is laying down in the hospital bed dressed in proper paper hospital attire when this typewriter tester arrives via zoom. Clients appearance is disheveled, hair messy . Client appears to be confused at times and while answering questions was rolling his head in circles with his eyes closed. Client did answer all of the questions asked of him EYE CONTACT: Client made very poor eye contact MOOD: clients mood appears to be confused, but cooperative AFFECT: affect flat APPETITE: Client stated that his appetite has been good since being at the h ospital and that he's eaten more there in the last couple days then he had in a week at home SLEEP(trouble falling/staying asleep: client reports of sleeping well Plan Client will remain at [facility] ED while awaiting placement. Client is on EE status. Safety plan is in place with [facility] ED staff. Signature Clinician's Name/Title: Alea Calhoun Enhanced Crisis Air Traffic Instructor
[2021-05-14] MEDS: risperiDONE 1 MG TAB 2 MG PO (07:23)
[2021-05-14] MEDS: LORazepam 1 MG TAB PO (07:24)
[2021-05-14 09:42] VITALS: BP 114/65; PULSE 80; RESP 18; TEMP 36.6; O2SAT 94
[2021-05-14] MEDS: LORazepam 1 MG TAB 2 MG PO ×2 (11:07→17:13)
--- NOTE | 2021-05-14 15:06 | PDOC.CMSAFED ---
- If Service Date Differs Date of service: 05/14/21 Time of Service: 15:06 Care Management Safety Plan Status: Involuntary - Reason for Wait Reason for Wait: Inpatient Admission INVOLUNTARY FOR INPATIENT PSYCHIATRIC STABILIZATION. Safety plan has been established to meet the needs of the patient, and consideration of the care team, to adhere to patient goals, identify restrictions based on behavioral status, address nutrition, and determine allowed personal belongings, tools for hygiene and personal care. Determine level of activity including ambulation, level of supervision, visitors, and determine privileges based on behaviors and level of engagement by pt. SAFETY PLAN: 1. Will remain on SI/HI precautions. In Paper Clothes 2. Will remain in room under direct supervision of one-on-one staff at all times provided by CPSO, SHAREPOINT ADMIN, LOCAL COMBINATION TRUCK DRIVER personal computer network analyst. 3. May have paper cups, plates, finger foods as well as a cardboard spoon with which to eat meals. 4. Follow [facility] Management of the Admitted Behavioral Health Patient policy. 5. Comfort bath system only. 6. No personal belongings. 7. Visitors: Per [facility] Covid policy and at RN discretion. 8. Activities: Soft cart items, crayons, coloring book, television if available, music tablet, and other activities at RN discretion. 9. Bathroom privileges with supervision while in the ED. 10. Phone: Use of hospital phone at RN discretion. 11. Due to INVOLUNTARY status, patient is being held at [facility] by the Department of Mental Health ([facility]). A 2nd certification by [facility] Psychiatrist took place on Saturday afternoon and the EE was upheld. Staff will provide de-escalation support (CPI) as needed. If patient wishes to leave [facility], staff will contact [facility] Crisis Screener ([phone]) and On-Call Couturiere ([phone]) as soon as possible. In the event of elopement, notify [place] State Police ([phone]). Patient is currently involuntarily at [facility]. [facility] Frontline Head Machine Feeder will continue seeking placement. Please contact the Graphic Technician Couturiere ([phone]) for any needed changes to Safety Plan. Safety plan has been provided to interdepartmental care team. Patient will be transported by [employer] at time of discharge.
--- NOTE | 2021-05-14 15:06 | CMSP_ITS ---
- If Service Date Differs Date of service: 05/14/21 Time of Service: 15:06 Care Management Safety Plan Status: Involuntary - Reason for Wait Reason for Wait: Inpatient Admission INVOLUNTARY FOR INPATIENT PSYCHIATRIC STABILIZATION. Safety plan has been established to meet the needs of the patient, and consideration of the care team, to adhere to patient goals, identify restrictions based on behavioral status, address nutrition, and determine allowed personal belongings, tools for hygiene and personal care. Determine level of activity including ambulation, level of supervision, visitors, and determine privileges based on behaviors and level of engagement by pt. SAFETY PLAN: 1. Will remain on SI/HI precautions. In Paper Clothes 2. Will remain in room under direct supervision of one-on-one staff at all times provided by CPSO, ACCOUNTS COLLECTOR, HEAD INSPECTOR AND CENTER MARKER padding machine operator. 3. May have paper cups, plates, finger foods as well as a cardboard spoon with which to eat meals. 4. Follow [facility] Management of the Admitted Behavioral Health Patient policy. 5. Comfort bath system only. 6. No personal belongings. 7. Visitors: Per [facility] Covid policy and at RN discretion. 8. Activities: Soft cart items, crayons, coloring book, television if available, music tablet, and other activities at RN discretion. 9. Bathroom privileges with supervision while in the ED. 10. Phone: Use of hospital phone at RN discretion. 11. Due to INVOLUNTARY status, patient is being held at [facility] by the Department of Mental Health ([facility]). A 2nd certification by [facility] Psychiatrist took place on Saturday afternoon and the EE was upheld. Staff will provide de-escalation support (CPI) as needed. If patient wishes to leave [facility], staff will contact [facility] Crisis Screener ([phone]) and On-Call Brass Reclaimer ([phone]) as soon as possible. In the event of elopement, notify [place] State Police ([phone]). Patient is currently involuntarily at [facility]. [facility] Frontline Final Tester will continue seeking placement. Please contact the Tree Driller Brass Reclaimer ([phone]) for any needed changes to Safety Plan. Safety plan has been provided to interdepartmental care team. Patient will be transported by [employer] at time of discharge.
--- NOTE | 2021-05-14 15:09 | PDOC.ERCMPRO ---
- If Service Date Differs Date of service: 05/14/21 Time of Service: 15:09 Care Management Progress Note S/O: Jared has had a couple of verbal outbursts today but has otherwise been calm and cooperative. He has been complaining of abdominal pain and per Dr. Traore, ED provider, Jared has some urinary retention and may require catheterization. Jared continues to experience gnosticist delusions and remains tangential in his thought process. A: Jared is a 65 year old male admitted to [facility] on 05/12/21 for psychosis. P: Referrals are faxed to [facility], [facility], and [facility] for review. There are no available psychiatric beds today. Jared will remain at [facility] on involuntary status while [facility] seeks placement for him. [facility] will reassess him on a daily basis until a bed is secured. will continue to follow. - Status Status: Involuntary - Reason for Wait Reason for Wait: Inpatient Admission
[2021-05-14] MEDS: Haloperidol 5 MG/ML VIAL IM (17:13)
[2021-05-14 20:35] VITALS: BP 119/75; PULSE 65; RESP 18; TEMP 36.5; O2SAT 96
[2021-05-15] MEDS: LORazepam 1 MG TAB PO ×4 (01:00→20:44)
[2021-05-15] MEDS: risperiDONE 1 MG TAB 2 MG PO ×3 (01:00→20:44)
[2021-05-15] MEDS: Acetaminophen 500 MG TAB 1000 MG PO (08:12)
[2021-05-15 09:55] VITALS: BP 125/79; PULSE 71; RESP 18; TEMP 36.6; O2SAT 97
--- NOTE | 2021-05-15 12:57 | CMSP_ITS ---
- If Service Date Differs Date of service: 05/15/21 Time of Service: 12:57 Care Management Safety Plan Status: Voluntary - Reason for Wait Reason for Wait: Inpatient Admission VOLUNTARY FOR INPATIENT PSYCHIATRIC STABILIZATION. Patient is appropriate in all interactions since arriving at [facility]; Pt has demonstrated appropriate coping and communication skills, has articulated his or her needs and concerns and is fully engaged during staff interactions. Safety plan has been established with patient, and care team, to adhere to patient goals, identify restrictions based on behavioral status, address nut rition, and determine allowed personal belongings, tools for hygiene and personal care. Determine level of activity including ambulation, level of supervision, visitors, and determine privileges based on behaviors and level of engagement by pt. SAFETY PLAN: 1. Will remain on suicide precautions. In Paper Clothes 2. Will remain in room under direct supervision of one-on-one staff at all times provided by CPSO, BUREAU DIRECTOR, ASSISTANT DIRECTOR OF ADMISSIONS occupational work experience teacher. 3. May have paper cups, plates, finger foods as well as a cardboard spoon with which to eat meals. 4. Follow [facility] Management of the Admitted Behavioral Health Patient policy. 5. Shower with supervision and at RN discretion. 6. No personal belongings 7. Visitors: Per [facility] Covid Policy and at RN discretion. 8. Activities: Soft cart items, crayons, coloring books, music tablet, television if available, and other activities at RN discretion. 9. Bathroom privileges with escort while in the ED; may use bathroom in room on Med/Surg without limitation. 10. Phone: Use of hospital phone at RN discretion. 11. Due to VOLUNTARY status, if patient wishes to leave [facility], staff will contact [facility] Crisis Screener ([phone]) and On-Call Doughnut Batter Mixer ([phone]) as soon as possible. In the event of elopement, notify [place] [employer] Police ([phone]). Patient is currently voluntarily at [facility] and seeking inpatient admission when a bed becomes available. [facility] Frontline Day Care Supervisor will continue seeking placement. Please contact the Protection Chief Industrial Plant Doughnut Batter Mixer ([phone]) and [facility] Day Care Supervisor ([phone]) for any needed changes in the Safety Plan. Safety plan has been provided to interdepartmental care team.
--- NOTE | 2021-05-15 12:57 | PDOC.CMSAFED ---
- If Service Date Differs Date of service: 05/15/21 Time of Service: 12:57 Care Management Safety Plan Status: Voluntary - Reason for Wait Reason for Wait: Inpatient Admission VOLUNTARY FOR INPATIENT PSYCHIATRIC STABILIZATION. Patient is appropriate in all interactions since arriving at [facility]; Pt has demonstrated appropriate coping and communication skills, has articulated his or her needs and concerns and is fully engaged during staff interactions. Safety plan has been established with patient, and care team, to adhere to patient goals, identify restrictions based on behavioral status, address nutrition, and determine allowed personal belongings, tools for hygiene and personal care. Determine level of activity including ambulation, level of supervision, visitors, and determine privileges based on behaviors and level of engagement by pt. SAFETY PLAN: 1. Will remain on suicide precautions. In Paper Clothes 2. Will remain in room under direct supervision of one-on-one staff at all times provided by CPSO, ANTENNA MACHINE OPERATOR, SIGN PAINTER APPRENTICE land surveyor manager. 3. May have paper cups, plates, finger foods as well as a cardboard spoon with which to eat meals. 4. Follow [facility] Management of the Admitted Behavioral Health Patient policy. 5. Shower with supervision and at RN discretion. 6. No personal belongings 7. Visitors: Per [facility] Covid Policy and at RN discretion. 8. Activities: Soft cart items, crayons, coloring books, music tablet, television if available, and other activities at RN discretion. 9. Bathroom privileges with escort while in the ED; may use bathroom in room on Med/Surg without limitation. 10. Phone: Use of hospital phone at RN discretion. 11. Due to VOLUNTARY status, if patient wishes to leave [facility], staff will contact [facility] Crisis Screener ([phone]) and On-Call Director Compensation ([phone]) as soon as possible. In the event of elopement, notify [place] Referral[employer] Police ([phone]). Patient is currently voluntarily at [facility] and seeking inpatient admission when a bed becomes available. [facility] Frontline Stock Handler will continue seeking placement. Please contact the Nail Making Machine Setter Director Compensation ([phone]) and [facility] Stock Handler ([phone]) for any needed changes in the Safety Plan. Safety plan has been provided to interdepartmental care team.
[2021-05-15] MEDS: Acetaminophen 500 MG TAB PO (14:45)
--- NOTE | 2021-05-15 15:26 | PDOC.MHCN_ITS ---
Date of service: 05/15/21 Time of Service: 10:40 Mental Health Crisis Note Presenting Issue How did you arrive at the ED and why did you come: The patient was assessed via zoom 05.12.21 after presenting to [facility] via EMS and was subsequently placed on EE status. At time of admit, patient presented with altered mental status, had been exhibiting violent / aggressive behaviors (verbal and physical), and was found to be responding to hallucinatory stimuli. Per [facility] ES clinician Chitra Patel following communication with [facility], there was an issue completing the 2nd certification process within scheduled timeframe and as such the involuntary status has been rendered invalid pending re-assessment. The patient is seen today for reassessment via telehealth to evaluate mental status and provide recommendation of status. Precipitating Factors The patient presents lying down in hospital bed with mild dishevelment. He appears alert and oriented and is able to provide some degree of recollection of events and circumstance leading up to ED admission 05.12. Patient appears medicated / drowsy but is otherwise able to engage and adequately articulate with relevant contextual elaboration. No behavioral concerns during interaction and no apparent psychotic symptoms (delusions, hallucinations) noted per 05.12. Patient reports feeling Better today than yesterday and goes on to comment that Yeah I had an episode. My mind wasn't where it should be. He denies current SI/HI/SIB, intent or plan and reports taking medications as requested. In-patient process has been explained, including current status, to which patient acknowledges understanding and agrees to remain at [facility] on voluntary status to await placement. Disposition BEHAVIOR: Appropriate during interaction EYE CONTACT: Poor (Pt appeared groggy) MOOD: Better today than yesterday AFFECT: Flat APPETITE: Pt reports not eating or drinking properly leading up to ED admission SLEEP(trouble falling/staying asleep: N/A Plan The patient will remain at [facility] on voluntary status and await recommended in- patient treatment. There are ongoing concerns of decompensation based on history and presenting acute psychosis, however patient is currently medication compliant in accordance with psychiatric consult recommendation and general disposition appears improved as compared to initial ED admission. The patient will be assessed daily by [facility] until placement is secured. Updated attending mo dical provider Dr. Lanette Vega on disposition and status. Signature Clinician's Name/Title: Jono Carson, [facility] clinician / [facility]
--- NOTE | 2021-05-15 15:46 | PDOC.ERCMPRO ---
- If Service Date Differs Date of service: 05/15/21 Time of Service: 15:46 Care Management Progress Note S/O: Jared is lying down when CM meets with him today. He appears drowsy but is more alert than he has been over the last couple of days. He reports feeling better now that he was able to urinate. Jared has crayons and paper and has been doing some coloring. He accepts a Word [employer] Puzzle book from . Jared was assessed by David of [facility] this morning and is now voluntary. A: Jared is a 65 year old male admitted to [facility] on 05/12/21 for psychosis. P: Referrals are faxed to [facility], [facility], [facility], and [facility]. There are no available beds today. Jared will remain at [facility] while [facility] continues to seek a voluntary placement for him. He will be assessed daily by [facility] until placement is secured. CM will continue to follow. - Status Status: Voluntary - Reason for Wait Reason for Wait: Inpatient Admission
--- NOTE | 2021-05-16 04:48 | SUR.PHASEI ---
pt awakened pt given shower with security standing by pt bed linen changed pt calm and cooperative. pt showing no s/s of acute distress
[2021-05-16 06:01] VITALS: BP 109/73; PULSE 82; RESP 16; TEMP 36.6; O2SAT 97
[2021-05-16] MEDS: risperiDONE 1 MG TAB 2 MG PO (08:13)
[2021-05-16] MEDS: LORazepam 1 MG TAB PO ×2 (08:13→13:48)
--- NOTE | 2021-05-16 08:42 | PSYCHFUP_ITS ---
Date of Service Date of service: 05/15/21 Time of Service: 14:00 Assessment and Plan Assessment and plan (1) Acute psychosis: Status: Acute Assessment and plan: Continue risperidone 2 mg BID, lorazepam 1 mg TID and haloperidol/lorazepam IM injections PRN for agitation Disposition to inpatient psychiatry pending. (2) History of schizophrenia: Status: Acute Psychiatry Subjective Narrative:: Seen in follow up for psychiatric care. He has been adherent to recommended psychiatric treatment and is noted t be moderately more cooperative. Remains very disorganized in his thinking with flight of ideas, loosened associations, and ideas of reference. Hyperreligious delusions also persist. Speech is noted to a pattern of terminal rhyming. When ased of this, he inidcates this is intentional, but cannot articulate a coherent rationale for doing so. Purposeless motor behavior appear to be diminished. Complains of some difficulty going to the bathroom, but is unable to articulate whether this is bowel or urinary. Attempt to contact [facility] crisis service was unsuccessful. Message left for service was not returned as of this writing. Referrals for inpatient psychiatry have been made with disposition pending. Exam Psych Appearance: other (psychomotor agitation appears decreased) Mental Status: other (grossly disorganized) Speech and Movement: speech and movement normal (rhyming, clang association pattern of speech), pressured speech and restless Mood: labile mood Affect: labile affect and irritable affect Attitude: guarded Thought Process: circumstantial, flight of ideas, illogical, loose association and tangential Thought Content: delusions and ideas of reference Insight: poor Judgment: poor Objective Medications: Active Inpatient Medications Report Generic Name Dose Route Start Last Admin Trade Name Freq PRN Reason Stop Dose Admin Lorazepam 1 mg 05/13/21 14:00 05/16/21 08:13 Lorazepam 1 Mg Tab PO 1 mg TID FELA Administration Risperidone 2 mg 05/13/21 08:30 05/16/21 08:13 Risperidone 1 Mg Tab PO 2 mg BID FELA Administration Discontinued Medications Generic Name Dose Route Start Last Admin Trade Name Freq PRN Reason Stop Dose Admin Acetaminophen 1,000 mg 05/15/21 04:27 05/15/21 08:12 Acetaminophen 500 Mg Tab PO 05/15/21 04:28 1,000 mg NOW ONE Administration Acetaminophen 500 mg 05/15/21 14:36 05/15/21 14:45 Acetaminophen 500 Mg Tab PO 05/15/21 14:37 500 mg NOW ONE Administration Diphenhydramine HCl 25 mg 05/12/21 10:46 05/12/21 10:55 Diphenhydramine 50 Mg/Ml Vial IM 05/12/21 10:47 25 mg RESTRAINT ONE Administration Haloperidol Lactate 5 mg 05/12/21 10:46 05/12/21 10:55 Haloperidol 5 Mg/Ml Vial IM 05/12/21 10:47 5 mg RESTRAINT ONE Administration Haloperidol Lactate 5 mg 05/14/21 17:04 05/14/21 17:13 Haloperidol 5 Mg/Ml Vial IM 05/14/21 17:05 5 mg NOW ONE Administration Magnesium Sulfate 8.12 meq/ 1,013.2 mls @ 168.867 mls/hr 05/12/21 12:10 05/12/21 18:09 Multivitamins 10 ml/ Thiamine IV 05/12/21 18:09 Infused HCl 100 mg/ Folic Acid 1 mg/ INFUSION ONE Infusion Sodium Chloride Lorazepam 1 mg 05/12/21 13:39 05/12/21 14:00 Lorazepam 2 Mg/Ml Vial IVP 05/12/21 13:40 1 mg RESTRAINT ONE Administration Lorazepam 0.5 mg 05/13/21 08:01 05/13/21 08:09 Lorazepam 0.5 Mg Tab PO 0.5 mg TID PRN PRN Administration Lorazepam 2 mg 05/14/21 11:02 05/14/21 11:07 Lorazepam 1 Mg Tab PO 05/14/21 11:03 2 mg NOW ONE Administration Lorazepam 2 mg 05/14/21 17:21 05/14/21 17:13 Lorazepam 1 Mg Tab PO 05/14/21 17:22 2 mg NOW ONE Administration Midazolam HCl 4 mg 05/12/21 10:46 05/12/21 10:55 Midazolam 2 Mg/2 Ml Vial IM 05/12/21 10:47 4 mg RESTRAINT ONE Administration Risperidone 0.5 mg 05/12/21 17:21 05/12/21 17:57 Risperidone 0.5 Mg Tab PO 05/12/21 17:22 Not Given NOW ONE Risperidone 2 mg 05/12/21 17:21 05/12/21 17:57 Risperidone 0.5 Mg Tab PO 05/12/21 17:22 2 mg NOW ONE Administration Vitals: Vital Signs - 24 hr 05/15/21 09:55 05/16/21 06:01 Temperature 36.6 C 36.6 C Pulse 71 82 Respiratory Rate 18 16 Blood Pressure 125/79 109/73 Pulse Oximetry 97 97 Review of Systems All systems reviewed & are unremarkable except as noted in HPI and below
--- NOTE | 2021-05-16 14:55 | PDOC.MHCN ---
Date of service: 05/16/21 Time of Service: 11:45 Mental Health Crisis Note Presenting Issue How did you arrive at the ED and why did you come: The patient was assessed via zoom 05.12.21 after presenting to [facility] via EMS and was subsequently placed on EE status. At time of admit, patient presented with altered mental status, had been exhibiting violent / aggressive behaviors (verbal and physical), and was found to be responding to hallucinatory stimuli. Per [facility] ES clinician Chitra Patel following communication with [facility], there was an issue completing the 2nd certification process within scheduled timeframe and as such the involuntary status has been rendered invalid pending re-assessment. The patient is seen today for reassessment via telehealth to evaluate mental status and provide recommendation of status. Precipitating Factors Patient presents sitting up on hospital bed. He is fully alert and oriented x4. Appearance is unremarkable, no psychomotor agitation or notable behavioral concerns. Eye contact is good. Patient is appropriate throughout assessment and is able to follow discussion and answer questions accordingly with several minor delayed responses. Speech is unpressured, normal rate, flat tone. General interaction and disposition appear improved as compared to assessment conducted on 05.15. Patient reports that he is doing Better today with euthymic affect. He reports being compliant with psychiatric medication as directed and states, The medication seems to be beneficial, just needs some tweaking. He states that he was taking medications as prescribed prior to [facility] admission and that consistency became a problem. Thought process appears coherent and more organized today. No apparent delusions and no report or evidence of hallucinations. Insight and judgment appear improved. Patient denies current SI/HI/SIB, intent or plan. He reports wanting to discharge and is interested in following up with outpatient services, specifically counseling. Disposition BEHAVIOR: Cooperative EYE CONTACT: Good MOOD: Better AFFECT: Euthymic APPETITE: No reported issues. SLEEP(trouble falling/staying asleep: No reported issues. Plan The patient's disposition and level of cooperation has improved and he has been following all psychiatric medication recommendations while at [facility]. In agreement with attending medical provider, the patient will be discharged home on a safety plan as he no longer meets criteria for in-patient level of care. Intake has been completed and referrals for counseling and psychiatry through [facility] will be submitted. [place] crisis sheet and behavioral health provider listing will be included as part of discharge packet. The patient has agreed to contact the agency will additional questions and will utilize available supports if symptoms of decompensation return. Signature Clinician's Name/Title[facility] / [facility]
--- NOTE | 2021-05-17 10:20 | NUR.NOTE ---
Nursing Note: Bhaskar Beltrán called about this pt. Accessed patient record to tell him that he was discharged home. Susie Garduno
== END 2021-05-16 16:31 | disposition home or self-care (01) ==
PROVIDERS: Student in an Organized Health Care Education/Training Program; Emergency Provider Physician Assistant; PCP Nurse Practitioner
DX: F23 Brief psychotic disorder (principal); F29 Unspecified psychosis not due to a substance or known physiological condition; S69.91XA Unspecified injury of right wrist, hand and finger(s), initial encounter; W22.09XA Striking against other stationary object, initial encounter; Z78.1 Physical restraint status; Z20.822 Contact with and (suspected) exposure to COVID-19; Z03.818 Encounter for observation for suspected exposure to other biological agents ruled out
CPT/HCPCS: 36415; 80048; 80053; 80307; 85027; 87635; 93005; 96365; 96366; 96372; 96375; 99285; 73130; 80320; 80329; 81003; 81015; 84443; 85025; 93010; J1200; J1630; J2060; J2250

== ENCOUNTER 2021-05-17 21:40 | Inpatient (IN) | payer MEDICAID, SELFPAY ==
[2021-05-17 21:43] VITALS: BP 144/88; PULSE 120; RESP 18; TEMP 36.8; O2SAT 98
--- NOTE | 2021-05-17 22:00 | W.ED.GENAD ---
Discharge Plan Disposition Patient Disposition: STILL A PATIENT Condition: Stable Discharge Details Clinical Impression: Acute psychosis, Schizophrenia Primary Care Provider: Martha Lopez ED Provider: Anurag Price Home Meds and New Rx's Prescriptions: No Action multivitamin [Multiple Vitamins] Tablet 1 tab PO DAILY Qty: 0 RF: 0 thiamine mononitrate (vit B1) [Vitamin B-1 (mononitrate)] 100 mg Tablet 100 mg PO DAILY Qty: 0 RF: 0 lorazepam [Ativan] 1 mg tablet 1 mg PO BID PRNQty: 7 RF: 0 risperidone [Risperdal] 2 mg tablet 2 mg PO BID Qty: 14 RF: 0 Medical Decision Making <Rodrigo Traore MD - Last Filed: 05/19/21 16:59> 65-year-old male presents from home after being discharged from the emergency department following stay from 05 12-05 16. His family reported bizarre behaviors in the outpatient setting, patient was evaluated by the crisis screener and due to ongoing hyperreligiosity, tangential thoughts, bizarre behaviors, the patient was brought to the ER by police escort after initiation of emergency psychiatric evaluation paperwork was performed in the outpatient setting. Patient arrives to the ER fairly animated with hyperreligiosity, tangential thoughts, intermittent mild agitated behaviors. He is somewhat redirectable at this time and able to work with staff to change into paper scrubs. A medical screening examination including laboratory analysis was obtained. Patient had psychiatric consultation while in the emergency department the last few days and has had a recommendation for scheduled Ativan and risperidone. Patient was able to take his nightly risperidone as well as 2 mg of Ativan by mouth. His medical work-up/screening remains pending and as it is change of shift I will sign out to Dr. Tai pending further review and management of the patient's medical work-up. I reassumed care of the patient for the afternoon shift of May 19. After my discussion with on-call, telemetry psychiatry, Dr. Pradhan, as well as David from [facility] services we will reapply for emergency evaluation certificate. The patient has a worsening pattern and trajectory of disorganized behavior with poor insight. He has been agitated, disorganized, delusional. On my first visit with the patient he was hyper muslim and continues to be so. He ihas prostrated himself and kissing the ground talking to God. He has agreed to take oral medicines. He is interactive with staff. <Zackary Tai DO - Last Filed: 05/18/21 07:36> Patient was signed out to me by my colleague Dr. Rodrigo Traore. Please refer to his HPI, physical exam assessment and plan. At time of signout we are awaiting laboratory work-up and reevaluation by mental health. Patient voluntarily took an additional 10 mg of Seroquel, 1 mg of Ativan and 25 mg of Benadryl. After taking this he transition from a notable hyperreligiosity, hypomanic episode to a sleeping state. He slept well throughout the night and woke up in the morning and ate breakfast. Laboratory work-up is unremarkable aside for evidence of a mild urinary tract infection. We will give fosfomycin. Patient is notably more calm and collected at this point, and we will have mental health reassessed him now. Patient will be signed out to my colleague Dr. Sherry Vega. <Sherry Vega DO - Last Filed: 05/22/21 17:06> 05/18/21 0800 --please see previous provider's note for initial presentation, exam and plan. Case endorsed to continue to monitor while awaiting placement. 0900 --patient behavior beginning to escalate, yelling at times. Patient willingly took a dose of Ativan p.o. 1030 --patient throwing his coffee cup. Able to be redirected but raising his voice at times. A dose of Zyprexa PO ordered. Consult to Dr. Pradhan placed. Patient requested to speak to mental health. Chitra evaluated through Zoom at bedside. 1450 --Pt banging on Rm 5 doors. Nikki aldrich called. Pt able to redirected and remained calm. 1600 --Dr. Pradhan attempted to evaluate patient at bedside through telehealth but patient too sedated. He will call back tomorrow and evaluate around noon time. He recommended stopping his Risperdal and starting olanzapine 20 mg p.o qhs with olanzapine 5 mg p.o. every 4 hours as needed up to 4 times a day if patient demonstrated disorganized behavior agitation. Dr. Pradhan does not recommend IM Zyprexa in combination with PO ativan due to risk of respiratory depression. 1800 --second certificate completed by state psychiatrist. 1999 --Case endorsed to Dr. Zhong to continue to monitor overnight. 05/20/21 0800 --reported that previous second certificate invalid due to error in documentation and paperwork. Plan for repeat second certificate today. 1245 --Pt evaluated by Dr. Pradhan through telehealth visit --notes that patient is still acutely psychotic and recommends adding lithium 300 mg twice daily. If lithium unavailable, can start Depakote 500 mg twice daily. 1400 --discussed with Chitra and [facility] psychiatrist through zoom --second certificate completed as patient noted to be quite labile and acutely psychotic. Chitra called to ask that we asked patient the name of the [employer] company to call for him to give consent for them to speak to his daughter so she can manage this while he is in the hospital but they are closed on the weekend and we can try Saturday. 1999 --case endorsed to Dr. Tai to monitor overnight while awaiting placement. 05/22/21 1200 --patient reported to nurse of left-sided chest pain. EKG obtained and noted rate of 79, sinus, no STEMI and no significant change from previous EKG. Stat labs including troponin obtained. Around the time of lab draw, patient reported that chest pain resolved. He had reported belching. We will add Pepcid. Troponin obtained and negative. 1245 --discussed with Dr. Pradhan who recommends increasing evening olanzapine to 30 mg nightly. Also recommend changing his as needed olanzapine from 5 mg every 4 hour up to 4 times daily to 5 mg every 4 hours up to twice daily or total of 10 mg daily for a total dose of 40 mg olanzapine if needed. Recommend checking a lithium level on Saturday morning in addition to a TSH, BUN and creatinine. 1700 --Case endorsed to Dr. Price to continue to monitor overnight. Repeat troponin pending. Medical Records Medical records reviewed: Yes I reviewed the patient's medical records. <Donald Zhong MD - Last Filed: 05/19/21 07:28> No real issues overnight. Around shift change was becoming a little more agitated and refusing oral medications. He was also offered IM medication. Eventually I was able to talk him down and redirect him. He finally took his nighttime dose of Zyprexa. There've been no issues since. <Anurag Price MD - Last Filed: 05/19/21 13:51> patient hree involuntary for tangential thoughts and bizarre behavior awaiting placement, currently stable, no acute complaints, will continue to monitor. pt more agitated and yelling, still having pressured speech, I feel he would benefit from his oral zyprexa and given increased agitation ativan as well which he took PO. pt now calm and sleeping. Bhaskar requested an ekg which was done and showed no acute changes or significant acute findings compared to old ekg Lab Data Lab results reviewed: Yes I reviewed the patient's lab results. ECG Data Attestation: I personally reviewed and interpreted this ECG (s) as follows: Prior ECG tracings: available for review Interpretation: sinus rhythm, rate of 73, no acute st t wave ischemic findings, rbbb HPI <Rodrigo Traore MD - Last Filed: 05/19/21 16:59> General Mode of arrival: ambulatory. Date/Time Provider Initiated Documentation: 05/17/21 21:40. Limitations to Documentation: no limitations. Information obtained by: patient, police and old records reviewed. History of Present Illness 65 year old M presents to the emergency department with the chief complaint of Bizarre behaviors, hyperreligiosity, recently discharged from , described as similar to prior episodes, Patient started experiencing this day(s) and it has been constant. No relieving factors improve symptom(s), No exacerbating factors reported . Patient did receive the following treatments prior to arrival, none Related Data Home Medications Medication Instructions Recorded Confirmed multivitamin [Multiple Vitamins] 1 tab PO DAILY #0 tab 04/29/19 05/13/21 thiamine mononitrate (vit B1) 100 mg PO DAILY #0 tab 04/29/19 05/13/21 [Vitamin B-1 (mononitrate)] lorazepam [Ativan] 1 mg PO BID PRN #7 tab 05/16/21 05/18/21 risperidone [Risperdal] 2 mg PO BID #14 tab 05/16/21 05/18/21 Previous Rx's Medication Instructions Recorded multivitamin [Multiple Vitamins] 1 tab PO DAILY #0 tab 04/29/19 thiamine mononitrate (vit B1) 100 mg PO DAILY #0 tab 04/29/19 [Vitamin B-1 (mononitrate)] lorazepam [Ativan] 1 mg PO BID PRN #7 tab 05/16/21 risperidone [Risperdal] 2 mg PO BID #14 tab 05/16/21 Allergies Allergy/AdvReac Type Severity Reaction Status Date / Time naproxen [From Aleve] AdvReac Hives Unverified 04/25/19 15:30 General KAR: 2 Review of Systems <Rodrigo Traore MD - Last Filed: 05/19/21 16:59> Narrative: Patient unable to complete review of systems Unobtainable due to mental condition PFSH <Rodrigo Traore MD - Last Filed: 05/19/21 16:59> Active Problem List Lina (Acute) Acute psychosis (Acute) Schizophrenia (Chronic) Psychotic episode (Acute) Schizophrenia (Chronic) Discharge planning issues (Acute) Hypokalemia (Acute) Hyperglycemia (Acute) Acute prerenal azotemia (Acute) Psychosis (Acute) Medical History Abdominal pain Alcohol dependence in remission Anxiety and depression Low back pain Numbness and tingling of right arm Numbness in feet Post herpetic neuralgia Shingles Surgical History H/O arthroscopic knee surgery Social History Smoking/Tobacco Use Status: Never Smoking risk assessment performed?: Yes Alcohol Intake: current Substance use type: former substance user Details: Patient unable to tell staff about alcohol/ drug use Additional Social history: unable to verbalize at time of triage Exam <Rodrigo Traore MD - Last Filed: 05/19/21 16:59> Narrative Exam Narrative: GEN: awake, alert, well groomed, interactive. HEAD: Normocephalic, atraumatic ENT: Mucous membranes moist, oropharynx unremarkable, External ear exam unremarkable EYES: PERRL, EOMI NECK: Full ROM, no LESLEY, no menigismus CHEST/RESP: Nontender, clear to auscultation bilateral, no wheeze/rhonchi/rales CARDIOVASCULAR: RRR, no murmur, rub jacinto. 2+ Rad pulse bilateral ABDOMEN: Soft, nontender, no mass. +Bowel sounds EXT: Full ROM, no edema, no rash Neuro: Grossly normal neurologic exam, conversant, interactive. Psych: Speech fluent, thoughts tangential, affect is animated. Sign Out <Rodrigo Traore MD - Last Filed: 05/19/21 16:59> Sign Out Data: Sign Out Comment: Returns, EE paperwork initiated, medical screening pending Last updated by Rodrigo Traore MD at 05/17/21 22:49 Sign Out Comment: Involuntarily sent in by mental health, requires mental health reevaluation, severe hyper religiosity. Last updated by Zackary Tai DO at 05/18/21 07:34 Sign Out Comment: Patient had a few outbursts today, able to be redirected and controlled with oral medication. Patient unable to be evaluated by Dr. Pradhan today due to sedation --he will reevaluate tomorrow around noon. Second certificate by state psychiatrist completed. Last updated by Sherry Vega DO at 05/18/21 19:42 Sign Out Comment: pending placement after second certification done yesterday Last updated by Donald Zhong MD at 05/19/21 07:30 Sign Out Comment: involuntary for psychosis, pending placement, give po zyprexa and ativan for increased agitation Last updated by Anurag Price MD at 05/19/21 13:26 Sign Out Comment: Repeat EE done 05/19 Last updated by Rodrigo Traore MD at 05/19/21 22:21 Sign Out Comment: Benadryl for sleep last night. Pending placement for involuntary. Last updated by Donald Zhong MD at 05/20/21 07:43 Sign Out Comment: Second certificate completed today. Awaiting placement. Last updated by Sherry Vega DO at 05/20/21 19:39 Sign Out Comment: Patient stable throughout the night. Last updated by Zackary Tai DO at 05/21/21 04:18 Sign Out Comment: Awaiting placement. Last updated by Sherry Vega DO at 05/21/21 19:59 Sign Out Comment: Awaiting placement. Stable throughout the night. Last updated by Zackary Tai DO at 05/22/21 07:19 Sign Out Comment: Awaiting placement. Complained of chest pain today with was brief and resolved on its own. Unremarkable EKG and negative troponin. Last updated by Sherry Vega DO at 05/22/21 16:57
[2021-05-17] MEDS: LORazepam 1 MG TAB 2 MG PO (22:39)
[2021-05-17] MEDS: risperiDONE 1 MG TAB 2 MG PO (23:11)
--- NOTE | 2021-05-17 23:11 | NUR.NOTE ---
Nursing Note: Pt took PO risperidol as ordered, continues with erratic conversation and knocking on donnelly, 1:1 observation continues.
[2021-05-18 00:10] LABS: Abs Immature Grans 0.04 10^3/uL (0.0-0.06); Absolute Lymphocyte Count 1.78 10^3/uL (1.2-3.4); Absolute Monocyte Count 0.85 10^3/uL (0.1-0.8); Basophils % 0.4; Eosinophils % 0.4; HCT 39.2 % (40.0-50.0); HGB 12.8 g/dL (13.5-17.5); Immature Grans % 0.4; Lymphocytes % 15.7; MCH 28.8 pg (27.0-33.0); MCHC 32.7 % (32.0-36.0); MCV 88.1 fL (80-95); Monocytes % 7.5; Neutrophils % 75.6; Nucleated RBC 0 %; Platelet Count 238 10^3/uL (130-400); RBC 4.45 10^6/uL (4.36-5.78); RDW 13.7 % (11.8-14.1); RDW-SD 44.6 fL; WBC 11.35 10^3/uL (4.4-10.8)
[2021-05-18 00:16] LABS: Absolute Basophil Count 0.05 10^3/uL (0.0-0.2); Absolute Eosinophil Count 0.05 10^3/uL (0.0-0.7); Absolute Neutrophil Count 8.58 10^3/uL (1.2-6.7)
[2021-05-18 00:27] LABS: Salicylate < 2.8 mg/dL (<2.8)
[2021-05-18 00:28] LABS: Acetaminophen < 2 ug/mL (10-30)
[2021-05-18 00:28] LABS: Bilirubin Negative (Negative); Blood Negative (Negative); Clarity Clear (Clear); Glucose Negative (Negative); Ketones Negative (Negative); Leukocyte Esterase Trace (Negative); Nitrite Negative (Negative); Urobilinogen 0.2 EU/dL (Up TO 0.2)
[2021-05-18] MEDS: LORazepam 1 MG TAB PO ×4 (00:35→13:41)
[2021-05-18] MEDS: diphenhydrAMINE 25 MG CAP PO (00:35)
[2021-05-18 00:36] LABS: Bacteria Few HPF (Negative); C & S Indicated? Yes; Casts 0-2 Hyaline LPF (Negative); Crystals Negative HPF (Negative); Epithelial Cells Rare HPF (Negative); Mucus Negative (Negative); RBC 0-2 HPF (0-2)
[2021-05-18] MEDS: OLANZapine 10 MG TAB PO ×2 (00:36→11:04)
[2021-05-18 00:38] LABS: ALT 53 U/L (16-63); AST 36 U/L (15-37); Alkaline Phosphatase 69 U/L (46-116); Anion Gap 11.5 mmol/L (3-11); BUN 13 mg/dL (7-18); Bilirubin, Total 0.9 mg/dL (0.2-1.0); CO2 23.5 mmol/L (21.0-32.0); CREATININE 0.9 mg/dL (0.70-1.30); Calcium 9.2 mg/dL (8.5-10.1); Chloride 99 mmol/L (98-107); Glucose 124 mg/dL (74-106); Sodium 134 mmol/L (136-145); TSH (W/Ref FT4) 1.61 uIU/mL (0.36-3.74); Total Protein 7.6 g/dL (6.4-8.2)
[2021-05-18 00:39] LABS: *AMPHETAMINES SCREEN URINE Negative (Negative); *BARBITURATES SCREEN URINE Negative (Negative); *BENZODIAZEPINES SCREEN URINE Negative (Negative); Cannabinoids THC Positive (Negative); Cocaine Screen,Urine Negative (Negative); METHADONE URINE SCREEN Negative (Negative); OPIATES URINE SCREEN Negative (Negative)
[2021-05-18 00:42] LABS: ETHANOL BLOOD < 3.0 mg/dL (<10)
[2021-05-18 00:47] LABS: Tricyclic Antidepressants Negative (Negative)
[2021-05-18 07:05] LABS: Source Nasal/Nares
[2021-05-18] MEDS: Fosfomycin Tromethamine 3 GM PACKET PO (07:48)
[2021-05-18] MEDS: risperiDONE 1 MG TAB 2 MG PO (07:48)
[2021-05-18 08:08] VITALS: BP 143/68; PULSE 94; RESP 16; TEMP 36.4; O2SAT 98
--- NOTE | 2021-05-18 09:06 | NUR.NOTE ---
Nursing Note: Spoke with patients daughter. She would like [facility] to test her father's A1C as they have a strong family history of diabetes and she is concerned about her fathers sugar levels as she stated that he is not eating much. Eyeglass Frames Inspector informed Dr. Vega of the family's request.
--- NOTE | 2021-05-18 09:13 | PDOC.CMSAFED ---
- If Service Date Differs Date of service: 05/18/21 Time of Service: 09:13 Care Management Safety Plan Status: Involuntary - Reason for Wait Reason for Wait: Inpatient Admission INVOLUNTARY FOR INPATIENT PSYCHIATRIC STABILIZATION. A huddle is held at 15:[address] Vega, ED provider, Danay, Nursing Camp Program Director, Janna, Charge Nurse, Skip, ANGELITA, and JESS Baez, in attendance. Safety plan has been established to meet the needs of the patient, and consideration of the care team, to adhere to patient goals, identify restrictions based on behavioral status, address nutrition, and determine allowed personal belongings, tools for hygiene and personal care. Determine level of activity including ambulation, level of supervision, visitors, and determine privileges based on behaviors and level of engagement by pt. SAFETY PLAN: 1. Will remain on SI/HI precautions. In Paper Clothes 2. Will remain in room under direct supervision of one-on-one staff at all times provided by CPSO, MADI, GRAPHICS EDITOR livestock farmworker. 3. May have paper cups, plates, finger foods as well as a cardboard spoon with which to eat meals. 4. Follow [facility] Management of the Admitted Behavioral Health Patient policy. 5. Comfort bath system only. 6. No personal belongings. 7. Visitors: Per [facility] Covid policy and at RN discretion. 8. Activities: Soft cart items, crayons, coloring book, television if available, music tablet, and other activities at RN discretion. 9. Bathroom privileges with supervision while in the ED. 10. Phone: Use of hospital phone at RN discretion. 11. Due to INVOLUNTARY status, patient is being held at [facility] by the Department of Mental Health ([facility]) until 2nd certification by [facility] Psychiatrist can be performed (wihin 24 hours). Staff will provide de-escalation support (CPI) as needed. If patient wishes to leave [facility], staff will contact [facility] Crisis Screener ([phone]) and On-Call Senior Unix Administrator ([phone]) as soon as possible. In the event of elopement, notify [facility] Police ([phone]). Patient is currently involuntarily at [facility]. [facility] Frontline Transaction Manager will continue seeking placement. Please contact the Mold Construction Supervisor Senior Unix Administrator ([phone]) for any needed changes to Safety Plan. Safety plan has been provided to interdepartmental care team. Patient will be transported by psychiatric np at time of discharge.
[2021-05-18 09:31] LABS: COVID-19 PCR Negative (Negative)
--- NOTE | 2021-05-18 14:17 | PDOC.ERCMPRO ---
- If Service Date Differs Date of service: 05/18/21 Time of Service: 14:17 Care Management Progress Note S/O: Jared is lying down when CM meets with him. He is slightly agitated, not understanding why he is being held at [facility]. It is explained to him that he is at the hospital on involuntary status and his patient rights are provided to him. Jared states we have violated all of his rights and says he wants to be transferred to a hospital in [place]. The EE process is explained to him by ANGELITA Valdivia. Jared then closes his eyes and no longer engages with us. A: Jared is a 65 year old male admitted to [facility] on 05/17/2021 for psychosis. P: Referrals are faxed to [facility], [facility], [facility], and [facility] for review. There are no available psychiatric beds currently. Jared will remain at [facility] while [facility] seeks an involuntary placement for him. He will be assessed daily by [facility] until placement is secured. CM will continue to follow. - Status Status: Involuntary - Reason for Wait Reason for Wait: Inpatient Admission
--- NOTE | 2021-05-18 15:41 | PDOC.MHCN_ITS ---
Date of service: 05/18/21 Time of Service: 15:41 Mental Health Crisis Note Presenting Issue How did you arrive at the ED and why did you come: Pt arrived on 05.17.2021 after STEVE Carson executed a Warrant. Precipitating Factors Pt denied SI and said he was not HI but warned keeping him there and we all will see. He is showing symptoms of delusions, paranoia and hallucinations. Disposition BEHAVIOR: Pt is agitated and aggressive with the tablet when he did not like what he heard. He is demanding to go home and was informed he would not be walked off his EE at this time. He is showing poor insight and judgment at this time. EYE CONTACT: Pt's eye contact is intense. MOOD: Mood is agitated and angry. AFFECT: His affect is congruent. APPETITE: Pt reported good. SLEEP(trouble falling/staying asleep: Pt reported good. Plan Pt was informed that he will remain on EE status at this time and he pushed the tablet away in an aggressive manner at that time and refused to speak any longer. This clinician spoke to his nurse as well as the ED provider about keeping him on EE status and that he may be in the ED through the weekend. This clinician passed this information on to STEVE Carson as he will do all the outreaches for hospitalization. Signature Clinician's Name/Title: Chitra Patel MS, [facility] Emergency Services Clinician, [facility]
--- NOTE | 2021-05-18 16:30 | PSYCO_ITS ---
Date of service: 05/18/21 Time of Service: 16:30 History of Present Illness History of Present Illness Chief Complaint: Lina Narrative: 4 hour telepsychiatry consultation requested by Dr. Vega for emvaluation of acute altered mental status. Patient was just discharged from ED about 1 day before returning due to family concerns about agitated and bizarre behavior, hyperreligiosity, and physical aggression. this account underwriter is familiar w ith his recent history due to being involved in his care during previous episode. Prior to discharge, he was noted by the [facility] crisis service to be markedly improved, willing to engage in outpatient care, and appearing to possess sufficient decision making capacity. I did not examine him on the day of discharge, though the day prior, he was noted to be quite disorganized, with prominent adventism preoccupations, though psychomotor agitation, and purposeless motor behavior were noted to be decreased. On exam today, he is noted quite somnalent and unable to appropraitely engage in clinical interview. In discussing the case with Dr. Vega, she indicates that his bevair on inital presentation was highly suggestive of acute lina with extreme agitation, adventism and grandiose delusions, and physically aggressive and threatening behavior. upon admission, he was administered olanzapione 10 mg and he received an additional 10 mg of olanzapine. Also on admission to ED, he as resttarted on his discharge dose of risperidone 2 mg BID and lorazepam 1 mg TID with additional lorazepam 2 mg PRN ordered. Assessment and Plan Assessment and plan (1) Psychotic episode: Status: Acute Assessment and plan: In discussing treatment recommendation, I recommend olanzapine as a potentially more effective alternative to risperidone, particularly given more prominentntly manic presentation Lina: psychosis: olanzapine 20 mg HS; 5 mg Q4hPRN upto 4 doses per day; Agitation/catatonia: lorazepam 1 mg TID and PRN with dose titrated to minimize sedation legasl: involuntary disposition: given poor outcome of recent dispo home I recommend inpatient psychiatry on an involuntary basis decision making capacity: current impaitred due to sedation follow up: 05/19/21; time TBD; will call unit in AM to schedule follow up (2) Schizophrenia: Status: Chronic Review of Systems All systems reviewed & are unremarkable except as noted in HPI and below [facility] Active Problem List Psychotic episode (Acute) Schizophrenia (Chronic) Discharge planning issues (Acute) Hypokalemia (Acute) Hyperglycemia (Acute) Acute prerenal azotemia (Acute) Psychosis (Acute) Medical History Abdominal pain Alcohol dependence in remission Anxiety and depression Low back pain Numbness and tingling of right arm Numbness in feet Post herpetic neuralgia Shingles Surgical History H/O arthroscopic knee surgery Social History Smoking/Tobacco Use Status: Never Smoking risk assessment performed?: Yes Alcohol Intake: current Substance use type: former substance user Details: Patient unable to tell staff about alcohol/ drug use Additional Social history: unable to verbalize at time of triage Exam Psych Appearance: other (appears sedated, eyes closed, hospital garb) Mental Status: other (subdued) Speech and Movement: other (slurred and incoherent speech) Mood: other (subdued) Judgment: other (impaired; lacks decision making capacity due to sedation) Results Last Vital Signs Temp 36.4 C L 05/18/21 08:08 Pulse 94 H 05/18/21 08:08 Resp 16 05/18/21 08:08 BP 143/68 H 05/18/21 08:08 Pulse Ox 98 05/18/21 08:08 Labs Result diagrams: 05/18/21 00:05 05/18/21 00:05 Labs: Laboratory Results - last 24 hr 05/18/21 05/18/21 05/18/21 00:05 00:05 00:05 WBC 11.35 H RBC 4.45 Hgb 12.8 L Hct 39.2 L MCV 88.1 MCH 28.8 MCHC 32.7 RDW 13.7 Plt Count 238 MPV 9.0 Immature Gran % 0.4 Neutrophils % 75.6 Lymphocytes % 15.7 Monocytes % 7.5 Eosinophils % 0.4 Basophils % 0.4 Nucleated RBC % 0 Absolute Neutrophils 8.58 H Absolute Lymphocytes 1.78 Absolute Monocytes 0.85 H Absolute Eosinophils 0.05 Absolute Basophils 0.05 Sodium 134 L Potassium 4.0 Chloride 99 Carbon Dioxide 23.5 Anion Gap 11.5 H BUN 13 Creatinine 0.9 Estimated GFR/1.73 m2 >= 60.00 Glucose 124 H Calcium 9.2 Total Bilirubin 0.9 AST 36 ALT 53 Alkaline Phosphatase 69 Total Protein 7.6 Albumin 4.0 TSH 1.61 Urine Color Urine Clarity Urine pH Ur Specific [place] Urine Protein Urine Ketones Urine Blood Urine Nitrite Urine Bilirubin Urine Urobilinogen Ur Leukocyte Esterase Urine RBC Urine WBC Ur Epithelial Cells Urine Crystals Urine Bacteria Urine Casts Urine Mucus Ur Culture Indicated? Urine Glucose Salicylates < 2.8 Urine Opiates Screen Urine Methadone Screen Acetaminophen < 2 Ur Barbiturates Screen Ur Tricyclics Screen Ur Amphetamines Screen U Benzodiazepines Scrn Urine Cocaine Screen Ur THC Screen Ethyl Alcohol < 3.0 COVID-19 Source SARS-CoV-2 (PCR) 05/18/21 05/18/21 05/18/21 00:20 00:20 07:00 WBC RBC Hgb Hct MCV MCH MCHC RDW Plt Count MPV Immature Gran % Neutrophils % Lymphocytes % Monocytes % Eosinophils % Basophils % Nucleated RBC % Absolute Neutrophils Absolute Lymphocytes Absolute Monocytes Absolute Eosinophils Absolute Basophils Sodium Potassium Chloride Carbon Dioxide Anion Gap BUN Creatinine Estimated GFR/1.73 m2 Glucose Calcium Total Bilirubin AST ALT Alkaline Phosphatase Total Protein Albumin TSH Urine Color Yellow Urine Clarity Clear Urine pH 6.0 Ur Specific [place] 1.020 Urine Protein Negative Urine Ketones Negative Urine Blood Negative Urine Nitrite Negative Urine Bilirubin Negative Urine Urobilinogen 0.2 Ur Leukocyte Esterase Trace H Urine RBC 0-2 Urine WBC 10-20 H Ur Epithelial Cells Rare Urine Crystals Negative Urine Bacteria Few Urine Casts 0-2 Hyaline Urine Mucus Negative Ur Culture Indicated? Yes Urine Glucose Negative Salicylates Urine Opiates Screen Negative Urine Methadone Screen Negative Acetaminophen Ur Barbiturates Screen Negative Ur Tricyclics Screen Negative Ur Amphetamines Screen Negative U Benzodiazepines Scrn Negative Urine Cocaine Screen Negative Ur THC Screen Positive A Ethyl Alcohol COVID-19 Source Nasal/Nares SARS-CoV-2 (PCR) Negative
--- NOTE | 2021-05-18 20:30 | PDOC.MHCN_ITS ---
Date of service: 05/18/21 Time of Service: 17:30 Mental Health Crisis Note Presenting Issue How did you arrive at the ED and why did you come: The patient was placed on a mental health warrant 12.1.21 based on presentation of acute psychosis. He is seen for 2nd certification process via telehealth. Precipitating Factors Did not asess. Disposition BEHAVIOR: N/A EYE CONTACT: N/A MOOD: N/A AFFECT: N/A APPETITE: N/A SLEEP(trouble falling/staying asleep: N/A Plan [facility] psychiatrist Chadd Friend passed 2nd certification process. The patient will remain at [facility] on voluntary status and await recommended in-patient treatment. He will be assessed twice daily by [facility] until placement is secured. Referral and labs faxed to: [facility], [facility], [place], [place], [facility], [place]. Signature Clinician's Name/Title: NICOLE Noel clinician / HP
--- NOTE | 2021-05-18 20:30 | PDOC.MHCN ---
Date of service: 05/18/21 Time of Service: 17:30 Mental Health Crisis Note Presenting Issue How did you arrive at the ED and why did you come: The patient was placed on a mental health warrant 12.1.21 based on presentation of acute psychosis. He is seen for 2nd certification process via telehealth. Precipitating Factors Did not asess. Disposition BEHAVIOR: N/A EYE CONTACT: N/A MOOD: N/A AFFECT: N/A APPETITE: N/A SLEEP(trouble falling/staying asleep: N/A Plan [facility] psychiatrist Chadd Friend passed 2nd certification process. The patient will remain at [facility] on voluntary status and await recommended in-patient treatment. He will be assessed twice daily by [facility] until placement is secured. Referral and labs faxed to: [facility], [facility] [place], [place], [place], [facility] [place], [place]. Signature Clinician's Name/Title: NICOLE Noel clinician / HP
--- NOTE | 2021-05-18 20:45 | NUR.NOTE ---
Pt. refusing to take medication. States that he has been lied to, he was told that he was only coming to talk and then they would be able to bring him home. Pt. agitated and requesting telephone, this keno writer / runner advised it was late and we would discuss it in the morning.Nursing Note:
[2021-05-18] MEDS: OLANZapine 10 MG TAB 20 MG PO (21:08)
[2021-05-18 21:48] VITALS: BP 123/69; PULSE 97; RESP 18; TEMP 37.3; O2SAT 93
[2021-05-18] MEDS: Acetaminophen 325 MG TAB 650 MG PO (23:15)
[2021-05-19] MEDS: LORazepam 1 MG TAB PO ×2 (08:18→21:33)
--- NOTE | 2021-05-19 08:21 | NUR.NOTE ---
Spoke with Bhaskar providing update on patient medications and behavior. She will discuss with the doctor this morning when he rounds.
[2021-05-19] MEDS: OLANZapine 5 MG TAB PO (12:08)
[2021-05-19] MEDS: LORazepam 1 MG TAB 2 MG PO (12:08)
--- NOTE | 2021-05-19 12:23 | NUR.NOTE ---
Patient rambling, yelling about the government. Rapid speech. Attempts made to reorient patient and deescalate. Spends a few minutes coloring and starts yelling again that you probably hope he gets a disease and dies. Patient offered bath wipes or soap and water for bath. Asking to have a shower, but department is limited on staff at this time. Accepted the wipes and states he may use them.
--- NOTE | 2021-05-19 13:30 | RT.EKG_ITS ---
APPROVED REPORT Exam: Resting ECG Reason for Exam: psych placement Patient Location: E HR:73 bpm ECG Measurements Heart Rate 73 AXIS SD 204 P 25 QRSd 133 QRS 0 QT 407 T 4 QTc 449 Conclusion Sinus rhythm...normal P axis, V-rate 60- 99 Right bundle branch block...QRSd>120, terminal axis(90,270)
--- NOTE | 2021-05-19 13:42 | NUR.NOTE ---
1342 patient resting, EKG done as requested by Bhaskar.
[2021-05-19 15:44] VITALS: BP 108/66; PULSE 88; TEMP 36.8; O2SAT 94
[2021-05-19 16:03] LABS: Hemoglobin A1C 6.1 % (<5.7)
--- NOTE | 2021-05-19 16:03 | W.PSYCHCONSU ---
Date of service: 05/19/21 Time of Service: 16:03 History of Present Illness History of Present Illness Chief Complaint: I don't need to be here Narrative: Seen in follow up. Notes reviewed indicated tht he was walked off of EE. On exam today, he is notably less sedated than yesterday. He is noted to be highly agitated and preasured. He engages in a lengthy rant about David Manuel, Thai Chew, [employer], Barron Rai about political corruption. He continues in this coherent matter for several minutes. He states that all he needs for treatment is AAA and some counseling. He has required emergency procedures since admission for extreme behavioral dyscontrol and threats. I recommend inpatient level of care and he repeated indicates he will not do that. He is unable to articulate how he would care for his mental health needs were he to leave the hospital. Phone contact with David Jose Carlosmary of [facility] Crisis suggests that [facility] legal chose not to file the EE with the court due to a perception that the documents did not ssufficiently support a case. I shared the impression with David that he clearly lacks insight into his illness, has impaired judgement and therefore is unable to consent to voluntary psychiatric treatment and therefore meets criteria for an involuntary admission. He indicated he would do [facility] own evaluation and pursue this course if his assessment aligned with this conclusion. Assessment and Plan Assessment and plan (1) Acute psychosis: Status: Acute Assessment and plan: Continue current medications Recommend EE application and referral for involuntary psychiatric hospitalizationt (2) Schizophrenia: Status: Chronic Review of Systems All systems reviewed & are unremarkable except as noted in HPI and below [facility] Active Problem List Acute psychosis (Acute) Schizophrenia (Chronic) Psychotic episode (Acute) Schizophrenia (Chronic) Discharge planning issues (Acute) Hypokalemia (Acute) Hyperglycemia (Acute) Acute prerenal azotemia (Acute) Psychosis (Acute) Medical History Abdominal pain Alcohol dependence in remission Anxiety and depression Low back pain Numbness and tingling of right arm Numbness in feet Post herpetic neuralgia Shingles Surgical History H/O arthroscopic knee surgery Social History Smoking/Tobacco Use Status: Never Smoking risk assessment performed?: Yes Alcohol Intake: current Substance use type: former substance user Details: Patient unable to tell staff about alcohol/ drug use Additional Social history: unable to verbalize at time of triage Exam Psych Appearance: other (angry, irritable.) Speech and Movement: pressured speech and other (loud, angry tone) Mood: manic mood, irritable mood and other (agitated) Affect: labile affect, dysphoric affect and irritable affect Attitude: other (hostile, belligerent) Thought Process: flight of ideas, illogical, perseverating and tangential Thought Content: delusions and other (paranoid, persecutory) Insight: poor Judgment: poor Results Last Vital Signs Temp 36.8 C 05/19/21 15:44 Pulse 88 05/19/21 15:44 Resp 18 05/18/21 21:48 BP 108/66 05/19/21 15:44 Pulse Ox 94 05/19/21 15:44 Labs Result diagrams: 05/18/21 00:05 05/18/21 00:05
--- NOTE | 2021-05-19 17:59 | CMSP_ITS ---
- If Service Date Differs Date of service: 05/19/21 Time of Service: 17:59 Care Management Safety Plan Status: Involuntary - Reason for Wait Reason for Wait: Inpatient Admission Safety plan has been established to meet the needs of the patient, and consideration of the care team, to adhere to patient goals, identify restrictions based on behavioral status, address nutrition, and determine allowed personal belongings, tools for hygiene and personal care. Determine level of activity including ambulation, level of supervision, visitors, and determine privileges based on behaviors and level of engagement by pt. SAFETY PLAN: 1. Will remain on SI/HI precautions. In Paper Clothes 2. Will remain in room under direct supervision of one-on-one staff at all times provided by [employer]PSO, LUMBER TALLIER, THERAPIST PHYS custom studio coordinator. 3. May have paper cups, plates, finger foods as well as a cardboard spoon with which to eat meals. 4. Follow [facility] Management of the Admitted Behavioral Health Patient policy. 5. Comfort bath system only. 6. No personal belongings. 7. Visitors: Per [facility] Covid policy and at RN discretion. 8. Activities: Soft cart items, crayons, coloring book, television if available, music tablet, and other activities at RN discretion. 9. Bathroom privileges with supervision while in the ED. 10. Phone: Use of hospital phone at RN discretion. 11. Due to INVOLUNTARY status, patient is being held at [facility] by the Department of Mental Health ([facility]) until 2nd certification by [facility] Psychiatrist can be performed (wihin 24 hours). Staff will provide de-escalation support (CPI) as needed. If patient wishes to leave [facility], staff will contact [facility] Crisis Screener ([phone]) and On-Call Application Support Manager ([phone]) as soon as possible. In the event of elopement, notify [place] State Police ([phone]). Patient is currently involuntarily at [facility]. [facility] Frontline Ecology Professor will continue seeking placement. Please contact the Project Control Analyst Application Support Manager ([phone]) for any needed changes to Safety Plan. Safety plan has been provided to interdepartmental care team. Patient will be transported by [employer] at time of discharge.
--- NOTE | 2021-05-19 17:59 | PDOC.CMSAFED ---
- If Service Date Differs Date of service: 05/19/21 Time of Service: 17:59 Care Management Safety Plan Status: Involuntary - Reason for Wait Reason for Wait: Inpatient Admission Safety plan has been established to meet the needs of the patient, and consideration of the care team, to adhere to patient goals, identify restrictions based on behavioral status, address nutrition, and determine allowed personal belongings, tools for hygiene and personal care. Determine level of activity including ambulation, level of supervision, visitors, and determine privileges based on behaviors and level of engagement by pt. SAFETY PLAN: 1. Will remain on SI/HI precautions. In Paper Clothes 2. Will remain in room under direct supervision of one-on-one staff at all times provided by CPSO, PATIENT ACCOUNT SPECIALIST, REAL ESTATE OFFICER music theory professor. 3. May have paper cups, plates, finger foods as well as a cardboard spoon with which to eat meals. 4. Follow [facility] Management of the Admitted Behavioral Health Patient policy. 5. Comfort bath system only. 6. No personal belongings. 7. Visitors: Per [facility] Covid policy and at RN discretion. 8. Activities: Soft cart items, crayons, coloring book, television if available, music tablet, and other activities at RN discretion. 9. Bathroom privileges with supervision while in the ED. 10. Phone: Use of hospital phone at RN discretion. 11. Due to INVOLUNTARY status, patient is being held at [facility] by the Department of Mental Health ([facility]) until 2nd certification by [facility] Psychiatrist can be performed (wihin 24 hours). Staff will provide de-escalation support (CPI) as needed. If patient wishes to leave [facility], staff will contact [facility] Crisis Screener ([phone]) and On-Call Margin Clerk ([phone]) as soon as possible. In the event of elopement, notify [place] [employer] Police ([phone]). Patient is currently involuntarily at [facility]. [facility] Frontline Commercial Loan Manager will continue seeking placement. Please contact the Divinity Teacher Margin Clerk ([phone]) for any needed changes to Safety Plan. Safety plan has been provided to interdepartmental care team. Patient will be transported by [facility] at time of discharge.
--- NOTE | 2021-05-19 18:02 | CMPROGNOTE_ITS ---
- If Service Date Differs Date of service: 05/19/21 Time of Service: 18:02 Care Management Progress Note S/O: Jared continues to experience delusions, at times yelling out and ranting about conspiracy theories. He has had periods of agitation today but has been redirectable by staff. Jared's speech remains pressured and his thought process continues to be tangential and at times illogical. Jared demonstrates poor insight and judgment and continues to refuse hospitalization. EE paperwork had to be rewritten today as [facility] Legal refused to file it with the court, alleging the EE as written did not show that Jared was a danger to self or others or that he was a person in need of treatment. A: Jared is a 65 year old male admitted to [facility] on 05/17/2021 for psychosis. P: Referrals are faxed to [facility], [facility], [facility], and [facility] for review. There are no available psychiatric beds currently. Jared will remain at [facility] while [facility] seeks an involuntary placement for him. He will be assessed daily by [facility] until placement is secured. CM will continue to follow. - Status Status: Involuntary - Reason for Wait Reason for Wait: Inpatient Admission
--- NOTE | 2021-05-19 20:45 | PDOC.MHCN_ITS ---
Date of service: 05/19/21 Time of Service: 16:40 Mental Health Crisis Note Presenting Issue How did you arrive at the ED and why did you come: Mr. Rainey was assessed via zoom 05.12.21 after presenting to [facility] via EMS and was subsequently placed on EE status. At time of admit, he presented with altered mental status, had been exhibiting violent / aggressive behaviors (verbal and physical), and was found to be responding to hallucinatory stimuli. The EE status was rendered void and Mr. Rainey was found to be cooperative with psychiatric medications and discharged from [facility] with follow-up treatment plan 05.16.21. On 05.17.12, Mr. Rainey began exhibiting similar psychotic symptoms during phone interactions with his daughter and ES clinician with additional report that he had not been eating or adhering to prescribed medications from [facility] resulting in redirection to [facility] on a mental health warrant due to evidence of potentially dangerous decompensation. Precipitating Factors Mr. Rainey presents lying down with disheveled appearance. There is some psychomotor agitation evident as he continuously moves his hand around while shaking his head. Speech is hyper verbal with tangential rambling and agitated tone. He speaks loudly and at length about being persecuted and angrily comments on his theological expertise when discussing treatment. Thought content is disorganized and delusional. He is redirectable at points but offers repetitive and cyclical responses. He perseverates on needing only 'outpatient treatment' throughout interaction and denies need for higher level of care. He reports not eating consistently or taking medications as prescribed following discharge on 05.16 and is unable to coherently identify ways of keeping himself safe and regulated at home. Insight and judgment are very poor and he appears to lack understanding of his illness. He denies SI but states Only when they bring me here. He does not comment on intention or plan to harm himself or others. He denies hallucinations. Disposition BEHAVIOR: Agitated EYE CONTACT: Fleeting MOOD: N.A AFFECT: reactive labile APPETITE: Unknown SLEEP(trouble falling/staying asleep: Unknown Plan Mr. Rainey has a significant history of episodic acute psychosis and has a tendency to become violent and engage in unsafe behaviors as a result. His recent behavioral interval while at [facility] indicates decompensation consistent with history. He lacks insight and judgment on his mental health and it is demonstrated an inability to care for his needs while at home. Mr. Rainey is in need of immediate and intensive short-term treatment in order to stabilize his mental health needs and to ensure safety of himself and the community. EE documents faxed to [facility] Signature Clinician's Name/Title: Jono Carson [facility] clincian / QMHP
[2021-05-19 21:31] VITALS: BP 118/73; PULSE 91; RESP 16; O2SAT 95
[2021-05-19] MEDS: OLANZapine 10 MG TAB 20 MG PO (21:32)
[2021-05-20] MEDS: diphenhydrAMINE 25 MG CAP 50 MG PO (00:53)
[2021-05-20] MEDS: LORazepam 1 MG TAB PO ×4 (09:54→21:39)
[2021-05-20] MEDS: OLANZapine 5 MG TAB PO ×3 (09:55→18:52)
[2021-05-20 11:50] VITALS: BP 129/81; PULSE 87; TEMP 36; O2SAT 96
--- NOTE | 2021-05-20 12:54 | W.PSYCHFU ---
Date of Service Date of service: 05/20/21 Time of Service: 12:54 Assessment and Plan Assessment and plan (1) Lina: Status: Acute Assessment and plan: Continue olanzapine and lorazepam on current schedule Add Justice Addition ER 300 mg BID (first dose this afternoon); Depakote 500 mg BID is a reasonable alternative if lithium unavailable Follow up Saturday05/21/21 (2) Acute psychosis: Status: Acute Psychiatry Subjective Narrative:: Seen in follow up by telemedicine. Application for EE submitted by David Carson yesterday evening with 2nd cert pending. Mood remains quite manic. Speech is pressured and mostly incoherent of content but noted again for end couplet rhyme. Less preoccupied with government corruption and conspiracies, but more religiously preoccupied. At times wailing and gnashing his teeth in what appears to be despair. Sleep is reported as poor. Adherent to recommended medications. No adverse effects of treatment reported. Given extreme manic state, I recommend a trial of lithium. Kideney function and TSH are check and WNL. Patient agreed to a trial of lithium. Discussed with Dr. Vega. Exam Psych Appearance: other (restless, disheveled. Some flapping and tapping of hands and other purpose) Speech and Movement: agitated, pressured speech and other (rhyming. At times incoherent speech.) Mood: manic mood, paranoid and irritable mood Affect: labile affect, irritable affect and elated Attitude: belligerent Thought Process: circumstantial, flight of ideas, illogical, loose association, perseverating and tangential Thought Content: ideas of reference Insight: poor Judgment: poor Objective Medications: Active Inpatient Medications Report Generic Name Dose Route Start Last Admin Trade Name Freq PRN Reason Stop Dose Admin Acetaminophen 650 mg 05/18/21 23:02 05/18/21 23:15 Acetaminophen 325 Mg Tab PO 325 mg Q6H PRN PRN Administration Lorazepam 1 mg 05/18/21 08:30 05/20/21 09:54 Lorazepam 1 Mg Tab PO 1 mg TID FELA Administration Olanzapine 20 mg 05/18/21 22:00 05/19/21 21:32 Olanzapine 10 Mg Tab PO 20 mg HS FELA Administration Olanzapine 5 mg 05/18/21 20:18 05/20/21 09:55 Olanzapine 5 Mg Tab PO 5 mg Q4H PRN Administration Agitation Discontinued Medications Generic Name Dose Route Start Last Admin Trade Name Julia PRN Reason Stop Dose Admin Diphenhydramine HCl 25 mg 05/18/21 00:19 05/18/21 00:35 Diphenhydramine 25 Mg Cap PO 05/18/21 00:20 25 mg NOW ONE Administration Diphenhydramine HCl 50 mg 05/20/21 00:46 05/20/21 00:53 Diphenhydramine 25 Mg Cap PO 05/20/21 00:47 50 mg NOW ONE Administration Fosfomycin Tromethamine 3 gm 05/18/21 07:35 05/18/21 07:48 Fosfomycin Tromethamine 3 Gm Packet PO 05/18/21 07:36 3 gm NOW ONE Administration Lorazepam 2 mg 05/17/21 21:51 05/17/21 22:39 Lorazepam 1 Mg Tab PO 05/17/21 21:52 2 mg NOW ONE Administration Lorazepam 1 mg 05/18/21 00:19 05/18/21 00:35 Lorazepam 1 Mg Tab PO 05/18/21 00:20 1 mg NOW ONE Administration Lorazepam 1 mg 05/18/21 08:34 05/18/21 09:01 Lorazepam 1 Mg Tab PO 05/18/21 08:35 1 mg NOW ONE Administration Lorazepam 2 mg 05/19/21 11:04 05/19/21 12:08 Lorazepam 1 Mg Tab PO 05/19/21 11:05 2 mg NOW ONE Administration Olanzapine 10 mg 05/18/21 00:19 05/18/21 00:36 Olanzapine 10 Mg Tab PO 05/18/21 00:20 10 mg NOW ONE Administration Olanzapine 10 mg 05/18/21 10:49 05/18/21 11:04 Olanzapine 10 Mg Tab PO 05/18/21 10:50 10 mg NOW ONE Administration Risperidone 2 mg 05/18/21 08:30 05/18/21 07:48 Risperidone 1 Mg Tab PO 2 mg BID FELA Administration Risperidone 2 mg 05/17/21 22:41 05/17/21 23:11 Risperidone 1 Mg Tab PO 05/17/21 22:42 2 mg NOW ONE Administration Labs Last 24 Hours: Laboratory Results - last 24 hr 05/18/21 00:05 Hemoglobin A1c 6.1 H Vitals: Vital Signs - 24 hr 05/19/21 15:44 05/19/21 21:31 05/20/21 11:50 Temperature 36.8 C 36.0 C L Pulse 88 91 H 87 Respiratory Rate 16 Blood Pressure 108/66 118/73 129/81 Pulse Oximetry 94 95 96 Review of Systems All systems reviewed & are unremarkable except as noted in HPI and below
[2021-05-20] MEDS: Lithium Carbonate 150 MG CAP 300 MG PO ×2 (13:08→21:38)
--- NOTE | 2021-05-20 13:57 | PDOC.MHCN ---
Date of service: 05/20/21 Time of Service: 13:57 Mental Health Crisis Note Presenting Issue How did you arrive at the ED and why did you come: Pt arrived to the ED on 05.17.2021 after he was d/c on 05.16.2021 on a safety plan that he immediately did not follow. He was brought to the ED via LE after ESC Yamileth executed a MH Warrant. Precipitating Factors Pt denied SI and HI today. He is extensively delusional with tangential thoughts and labile mood. He is showing poor insight and judgment. Disposition BEHAVIOR: Pt is labile, aggressive at times and rhyming and crying help me help me help me the next. At other times he is argumentative. EYE CONTACT: Good eye contact and at times intensive. MOOD: Mood labile. AFFECT: Affect congruent with mood. APPETITE: Pt is eating. SLEEP(trouble falling/staying asleep: Pt is sleeping. Plan Pt assessed twice today. Once this am at his request and then again this clinician was present during his 3rd second certification with Dr. Rose. Dr. Rose has certified the and Jared will remain at [facility] pending admission. Signature Clinician's Name/Title: Cihtra Patel MS, [facility] Emergency Services Clinician, [facility]
--- NOTE | 2021-05-20 15:26 | CMSP_ITS ---
- If Service Date Differs Date of service: 05/20/21 Time of Service: 15:26 Care Management Safety Plan Status: Involuntary - Reason for Wait Reason for Wait: Inpatient Admission Safety plan has been established to meet the needs of the patient, and consideration of the care team, to adhere to patient goals, identify restrictions based on behavioral status, address nutrition, and determine allowed personal belongings, tools for hygiene and personal care. Determine level of activity including ambulation, level of supervision, visitors, and determine privileges based on behaviors and level of engagement by pt. SAFETY PLAN: 1. Will remain on SI/HI precautions. In Paper Clothes 2. Will remain in room under direct supervision of one-on-one staff at all times provided by CPSO, PRINTING MACHINE OPERATOR TAPE RULES, SOCIAL WORK ASSOCIATE adult secondary education instructor. 3. May have paper cups, plates, finger foods as well as a cardboard spoon with which to eat meals. 4. Follow [facility] Management of the Admitted Behavioral Health Patient policy. 5. Comfort bath system only. 6. No personal belongings. 7. Visitors: Per [facility] Covid policy and at RN discretion. 8. Activities: Soft cart items, crayons, coloring book, television if available, music tablet, and other activities at RN discretion. 9. Bathroom privileges with supervision while in the ED. 10. Phone: Use of hospital phone at RN discretion. 11. Due to INVOLUNTARY status, patient is being held at [facility] by the Department of Mental Health ([facility]) until 2nd certification by [facility] Psychiatrist can be performed (wihin 24 hours). Staff will provide de-escalation support (CPI) as needed. If patient wishes to leave [facility], staff will contact [facility] Crisis Screener ([phone]) and On-Call Plasma Processing Technician ([phone]) as soon as possible. In the event of elopement, notify [place] State Police ([phone]). Patient is currently involuntarily at [facility]. [facility] Frontline Supervisor Bindery will continue seeking placement. Please contact the Cosmetic Account Coordinator Plasma Processing Technician ([phone]) for any needed changes to Safety Plan. Safety plan has been provided to interdepartmental care team. Patient will be transported by [employer] at time of discharge.
--- NOTE | 2021-05-20 15:26 | PDOC.CMSAFED ---
- If Service Date Differs Date of service: 05/20/21 Time of Service: 15:26 Care Management Safety Plan Status: Involuntary - Reason for Wait Reason for Wait: Inpatient Admission Safety plan has been established to meet the needs of the patient, and consideration of the care team, to adhere to patient goals, identify restrictions based on behavioral status, address nutrition, and determine allowed personal belongings, tools for hygiene and personal care. Determine level of activity including ambulation, level of supervision, visitors, and determine privileges based on behaviors and level of engagement by pt. SAFETY PLAN: 1. Will remain on SI/HI precautions. In Paper Clothes 2. Will remain in room under direct supervision of one-on-one staff at all times provided by CPSO, OTHER SPORTS COACH OR INSTRUCTOR, SENIOR CLINICAL STUDY MANAGER storm sash maker. 3. May have paper cups, plates, finger foods as well as a cardboard spoon with which to eat meals. 4. Follow [facility] Management of the Admitted Behavioral Health Patient policy. 5. Comfort bath system only. 6. No personal belongings. 7. Visitors: Per [facility] Covid policy and at RN discretion. 8. Activities: Soft cart items, crayons, coloring book, television if available, music tablet, and other activities at RN discretion. 9. Bathroom privileges with supervision while in the ED. 10. Phone: Use of hospital phone at RN discretion. 11. Due to INVOLUNTARY status, patient is being held at [facility] by the Department of Mental Health ([facility]) until 2nd certification by [facility] Psychiatrist can be performed (wihin 24 hours). Staff will provide de-escalation support (CPI) as needed. If patient wishes to leave [facility], staff will contact [facility] Crisis Screener ([phone]) and On-Call Active Directory Specialist ([phone]) as soon as possible. In the event of elopement, notify [place] State Police ([phone]). Patient is currently involuntarily at [facility]. [facility] Frontline Parer will continue seeking placement. Please contact the Child Protective Investigator Active Directory Specialist ([phone]) for any needed changes to Safety Plan. Safety plan has been provided to interdepartmental care team. Patient will be transported by [employer] at time of discharge.
--- NOTE | 2021-05-20 15:27 | CMPROGNOTE_ITS ---
- If Service Date Differs Date of service: 05/20/21 Time of Service: 15:27 Care Management Progress Note S/O: Jared continues to experience delusions, at times yelling out and ranting about conspiracy theories. He has had periods of agitation today but has been redirectable by staff. Jared had an episode in the bathroom this afternoon of loud, pressured yelling per nurse and required medication for this. A second certification (for the third time) was conducted this afternoon with Dr. Rose and the EE was certified. He will remain at [facility] pending admission to a psychiatric hospital. CM was unable to speak to Jared this afternoon as he had been medicated and was asleep. A: Jared is a 65 year old male admitted to [facility] on 05/17/2021 for psychosis. P: Referrals are faxed to [facility], [facility], [facility], and [facility] for review. There are no available psychiatric beds currently. Jared will remain at [facility] while [facility] seeks an involuntary placement for him. He will be assessed daily by [facility] until placement is secured. CM will continue to follow. -
[2021-05-20 19:43] VITALS: BP 122/77; PULSE 90; TEMP 36.5; O2SAT 98
[2021-05-20] MEDS: OLANZapine 10 MG TAB 20 MG PO (21:39)
[2021-05-21 00:50] VITALS: BP 140/78; PULSE 68; O2SAT 96
[2021-05-21 01:52] VITALS: TEMP 36.8
[2021-05-21] MEDS: LORazepam 1 MG TAB 2 MG PO ×2 (02:15→21:30)
[2021-05-21] MEDS: diphenhydrAMINE 25 MG CAP PO ×2 (02:15→21:30)
[2021-05-21] MEDS: Lithium Carbonate 150 MG CAP 300 MG PO ×2 (08:37→21:30)
[2021-05-21] MEDS: LORazepam 1 MG TAB PO ×2 (08:37→13:42)
[2021-05-21] MEDS: OLANZapine 5 MG TAB PO ×2 (08:57→16:55)
[2021-05-21 13:39] VITALS: BP 112/77; PULSE 76; TEMP 36.7; O2SAT 99
--- NOTE | 2021-05-21 13:43 | NUR.NOTE ---
Nursing Note: Pt awake, reports feeling much much better. Mental health via IPAD done, took scheduled PO ativan, allowed V/S to be taken and lunch ordered per request, 1:1 monitoring maintained.
--- NOTE | 2021-05-21 14:51 | MHPN_ITS ---
Date of service: 05/21/21 Time of Service: 13:40 Mental Health Progress Note Progress Note Progress Note: Presenting Issue: Client arrived to the ED on 05.17.2021 after he was d/c on 05.16.2021 on a safety plan that he immediately did not follow. He was brought to the ED via LE after STEVE Yamileth executed a MH Warrant. Precipitating Factors: Client denied SI and HI during this assessment. Client presented as extensively delusional with tangential thoughts and labile mood. He is showing poor insight and judgment. Client also presented with paranoid thinking in regards to this clinician's role during this assessment. Disposition * Behavior:Client presented as labile with tangential and disorganized thought process and content. Client also presented with no insight and judgment especially in regards to why he is currently in the ER on involuntary status. *Eye Contact: Client maintained good eye contact during this assessment. *Mood: Client presented with relaxed mood. *Affect: Client presented with blunted affect. *Appetite:Client reported no issues with appetite at this time. *Sleep(trouble falling/staying asleep): Client reported some difficulty staying asleep and stated he woke up a few times times at night. Plan(please elaborate and include that physician is consulted with plan and/or placement):Client would be assessed twice daily by [facility] till he is placed for treatment or till an appropriate safety plan can be made. Referral are pending review as well as bed availability at this time. Clinician's Name , Title, and Signature Mariel Kumari, Emergency Services Clinician, [facility]. Make sure that you are photocopying and submitting this to [facility] records Dept. to be scanned into chart.
--- NOTE | 2021-05-21 15:45 | CMSP_ITS ---
- If Service Date Differs Date of service: 05/21/21 Time of Service: 15:45 Care Management Safety Plan Status: Involuntary - Reason for Wait Reason for Wait: Inpatient Admission Safety plan has been established to meet the needs of the patient, and consideration of the care team, to adhere to patient goals, identify restrictions based on behavioral status, address nutrition, and determine allowed personal belongings, tools for hygiene and personal care. Determine level of activity including ambulation, level of supervision, visitors, and determine privileges based on behaviors and level of engagement by pt. SAFETY PLAN: 1. Will remain on SI/HI precautions. In Paper Clothes 2. Will remain in room under direct supervision of one-on-one staff at all times provided by CPSO, CHEST PAINTING LEADER, EDUCATIONAL PSYCHOLOGY PROFESSOR supervisor tumblers. 3. May have paper cups, plates, finger foods as well as a cardboard spoon with which to eat meals. 4. Follow [facility] Management of the Admitted Behavioral Health Patient policy. 5. Comfort bath system only. 6. No personal belongings. 7. Visitors: Per [facility] Covid policy and at RN discretion. 8. Activities: Soft cart items, crayons, coloring book, television if available, music tablet, and other activities at RN discretion. 9. Bathroom privileges with supervision while in the ED. 10. Phone: Use of hospital phone at RN discretion. 11. Due to INVOLUNTARY status, patient is being held at [facility] by the Department of Mental Health ([facility]) until 2nd certification by [facility] Psychiatrist can be performed (wihin 24 hours). Staff will provide de-escalation support (CPI) as needed. If patient wishes to leave [facility], staff will contact [facility] Crisis Screener ([phone]) and On-Call Net Application Architect ([phone]) as soon as possible. In the event of elopement, notify [place] [employer] Police ([phone]). Patient is currently involuntarily at [facility]. [facility] Frontline Riveting Machine Operator Tape Control will continue seeking placement. Please contact the Oil Heater Operator Net Application Architect ([phone]) for any needed changes to Safety Plan. Safety plan has been provided to interdepartmental care team. Patient will be transported by [employer] at time of discharge.
--- NOTE | 2021-05-21 15:45 | PDOC.CMSAFED ---
- If Service Date Differs Date of service: 05/21/21 Time of Service: 15:45 Care Management Safety Plan Status: Involuntary - Reason for Wait Reason for Wait: Inpatient Admission Safety plan has been established to meet the needs of the patient, and consideration of the care team, to adhere to patient goals, identify restrictions based on behavioral status, address nutrition, and determine allowed personal belongings, tools for hygiene and personal care. Determine level of activity including ambulation, level of supervision, visitors, and determine privileges based on behaviors and level of engagement by pt. SAFETY PLAN: 1. Will remain on SI/HI precautions. In Paper Clothes 2. Will remain in room under direct supervision of one-on-one staff at all times provided by CPSO, LESSON INSTRUCTOR, NITROCELLULOSE MAKER director business integration. 3. May have paper cups, plates, finger foods as well as a cardboard spoon with which to eat meals. 4. Follow [facility] Management of the Admitted Behavioral Health Patient policy. 5. Comfort bath system only. 6. No personal belongings. 7. Visitors: Per [facility] Covid policy and at RN discretion. 8. Activities: Soft cart items, crayons, coloring book, television if available, music tablet, and other activities at RN discretion. 9. Bathroom privileges with supervision while in the ED. 10. Phone: Use of hospital phone at RN discretion. 11. Due to INVOLUNTARY status, patient is being held at [facility] by the Department of Mental Health ([facility]) until 2nd certification by [facility] Psychiatrist can be performed (wihin 24 hours). Staff will provide de-escalation support (CPI) as needed. If patient wishes to leave [facility], staff will contact [facility] Crisis Screener ([phone]) and On-Call Battery Tester ([phone]) as soon as possible. In the event of elopement, notify [place] [employer] ([phone]). Patient is currently involuntarily at [facility]. [facility] Frontline Plate Glass Polisher will continue seeking placement. Please contact the Fish Roe Processor Battery Tester ([phone]) for any needed changes to Safety Plan. Safety plan has been provided to interdepartmental care team. Patient will be transported by [employer] at time of discharge.
--- NOTE | 2021-05-21 15:46 | PDOC.ERCMPRO ---
- If Service Date Differs Date of service: 05/21/21 Time of Service: 15:46 Care Management Progress Note S/O: Jared was seen by Tom, [facility], today, who stated that he presented as extensively delusional with tangential thoughts and labile mood. He is currently denying SI/HI, but Tom feels that he continues to meet criteria for inpatient psychiatric stabilization. He will be reassessed again this evening. There are no current beds available. CM checked in with staff in ED, who reported that he has been sleeping a lot during the day, as he doesn't sleep well at night. No changes to safety plan today, per RN. CM will continue to follow. A: Jared is a 65 year old male admitted to [facility] on 05/17/2021 for psychosis. P: Referrals are faxed to [facility], [facility], [facility], and [facility] for review. There are no available psychiatric beds currently. Jared will remain at [facility] while [facility] seeks an involuntary placement for him. He will be assessed daily by [facility] until placement is secured. CM will continue to follow.
--- NOTE | 2021-05-21 16:41 | PDOC.MHCN ---
Date of service: 05/21/21 Time of Service: 16:41 Mental Health Crisis Note Presenting Issue How did you arrive at the ED and why did you come: Pt arrived via a MH Warrant on 05.17.2021. His Warrant did not meet hte standard to continue to hold the Pt so another EE was written on 05.19.2021 and the second cert done on 05.20.2021 to continue to hold the Pt. Precipitating Factors Pt stated to both not yet and clarifies he is only being facetious and that he would never hurt anyone. He continues to improve on mediations and have less outbursts however, he does still need treatment. Disposition BEHAVIOR: Pt is calm and cooperative initially however upon learning that we are still seeking an inpatient hospital level of care he became deregulated raising his voice and grabbing a cup and throwing it forcefully toward the floor. He then stated I'm not going into an inpatient facility and if I do, you, and him and all you sons of bitches will go down the drain with me. He continues to stated that inpatient does not work. He then yelled I'm done with you! EYE CONTACT: Eye contact was good until he decided the meeting was over. MOOD: Mood was calm and cool until he learned that he was going inpatient then he became angry and aggressuve. AFFECT: Affect is congruent with mood. APPETITE: Pt is eating SLEEP(trouble falling/staying asleep: Pt is sleeping Plan Pt will remain on EE status and remain in the ED pending admission. He will be evaluated twice daily per [facility] policy. No beds were avialble today. Signature Clinician's Name/Title: Chitra Patel MS, [facility] Emergency Services Clinician, [facility]
[2021-05-21 16:51] VITALS: BP 138/78; PULSE 68; RESP 18; TEMP 36.6; O2SAT 96
[2021-05-21] MEDS: OLANZapine 10 MG TAB 20 MG PO (21:30)
[2021-05-22] VITALS: BP 131/84; PULSE 82; RESP 16; TEMP 36.6; O2SAT 98
[2021-05-22] MEDS: Pantoprazole 40 MG TABCR PO (00:15)
[2021-05-22] MEDS: LORazepam 1 MG TAB PO ×2 (09:27→20:53)
[2021-05-22] MEDS: Lithium Carbonate 150 MG CAP 300 MG PO ×2 (09:27→20:53)
--- NOTE | 2021-05-22 09:42 | NUR.NOTE ---
Nursing Note: Received report from previous nurse. Pt sitting up on stretcher drinking coffee. Calm & Cooperative at this time, CPSO outside doorway
--- NOTE | 2021-05-22 11:26 | NUR.NOTE ---
Patient currently rattling teeth in hands and all over body talking about his catholic. Nursing Note:
[2021-05-22] MEDS: OLANZapine 5 MG TAB PO (11:34)
--- NOTE | 2021-05-22 11:34 | NUR.NOTE ---
Nursing Note: Pt was noted to be increasingly agitated- has dentures out of mouth and clapping them together, banging hand against the table, asking when he will have his meeting to get out of this stall and go home. Pt medicated with Zyprexa 5mg PRN order and updated that MH should be in to see him soon. Pt currently laying on stretcher with lights off and CPSO outside of the door.
--- NOTE | 2021-05-22 11:45 | RT.EKG_ITS ---
APPROVED REPORT Exam: Resting ECG Reason for Exam: chest pressure Patient Location: E HR:79 bpm ECG Measurements Heart Rate 79 AXIS NM 212 P 49 QRSd 135 QRS 20 QT 389 T 9 QTc 445 Conclusion Sinus rhythm...normal P axis, V-rate 60- 99 Borderline prolonged NM interval...NM >212, V-rate 50- 90 Right bundle branch block...QRSd>120, terminal axis(90,270) Borderline ST elevation, lateral leads...ST >0.06mV, I aVL V5 V6. Sinus. No STEMI. No significant change from previous EKG.
[2021-05-22 11:55] VITALS: BP 123/72; PULSE 78; RESP 18; TEMP 36.5; O2SAT 95
--- NOTE | 2021-05-22 12:00 | NUR.NOTE ---
PT seeing psychiatrist via telehealth video chat. Nursing Note:
[2021-05-22 12:06] LABS: Abs Immature Grans 0.03 10^3/uL (0.0-0.06); Absolute Basophil Count 0.04 10^3/uL (0.0-0.2); Absolute Eosinophil Count 0.15 10^3/uL (0.0-0.7); Absolute Lymphocyte Count 1.71 10^3/uL (1.2-3.4); Absolute Monocyte Count 0.49 10^3/uL (0.1-0.8); Absolute Neutrophil Count 4.32 10^3/uL (1.2-6.7); Basophils % 0.6; Eosinophils % 2.2; HCT 40.4 % (40.0-50.0); HGB 12.8 g/dL (13.5-17.5); Immature Grans % 0.4; Lymphocytes % 25.4; MCH 28.9 pg (27.0-33.0); MCHC 31.7 % (32.0-36.0); MCV 91.2 fL (80-95); MPV 8.7 fL (8.0-11.0); Monocytes % 7.3; Neutrophils % 64.1; Nucleated RBC 0 %; Platelet Count 263 10^3/uL (130-400); RBC 4.43 10^6/uL (4.36-5.78); RDW 13.8 % (11.8-14.1); WBC 6.74 10^3/uL (4.4-10.8)
--- NOTE | 2021-05-22 12:08 | NUR.NOTE ---
Nursing Note: 1150- Pt c/o sharp left sided chest pain w/aching sensation down into left arm. Started suddenly, states he's had this pain before but it usually doesnt last this long. 1152- EKG completed, VS obtained and updated
--- NOTE | 2021-05-22 12:13 | NUR.NOTE ---
Patient hitting self while on telehealth meeting with mental health Will notify RN Nursing Note:
[2021-05-22 12:26] LABS: ALT 24 U/L (16-63); AST 11 U/L (15-37); Albumin 3.1 g/dL (3.4-5.0); Alkaline Phosphatase 63 U/L (46-116); Anion Gap 6.1 mmol/L (3-11); BUN 18 mg/dL (7-18); Bilirubin, Total 0.3 mg/dL (0.2-1.0); CO2 28.9 mmol/L (21.0-32.0); CREATININE 0.9 mg/dL (0.70-1.30); Calcium 9.2 mg/dL (8.5-10.1); Chloride 105 mmol/L (98-107); Glucose 99 mg/dL (74-106); Magnesium 2.4 mg/dL (1.8-2.4); Potassium 4.3 mmol/L (3.5-5.1); Sodium 140 mmol/L (136-145); Total Protein 6.9 g/dL (6.4-8.2)
[2021-05-22 12:27] LABS: Troponin I < 0.05 ng/mL (<0.06)
--- NOTE | 2021-05-22 12:29 | W.PSYCHCONSU ---
Date of service: 05/22/21 Time of Service: 12:31 History of Present Illness History of Present Illness Chief Complaint: Back and forth Narrative: Seen in follow up through telemedicine. AStates If I have to, I'll develop a Messiah complex. He is noted to have been adherent to recommended treatment and appears to be progressing modestly. He is less agitated with fewer physical or verbal outbursts. He notes that medications appear well tolerated without notable adverse effetcs. He reports some difficulty with toiletting and describes constipation. He is notable disorganized and frequently incoherent in his speech with continue clanging rhyme patterns to his speech. Hyperreligious preoccupations continue. He is upset that he is being referred to inpatient psychiatry and indicates a desire to do counseling. He is counseled that the severity of his current symptoms require inpatienet level of care. I recommend and increase in olanzapine dose at HS. He does not explicitly reject this proposal, though his response to questions about agree to the the change are completely tangential and unrelated to the question about medications. Assessment and Plan Assessment and plan (1) Lina: Status: Acute Assessment and plan: Increase scheduled olanzapine to 30 mg HS; limit PRN olanzapine to 5 mg Q4H PRN up to twice daily; Continue lithium ER 300 mg BID and schedule and PRN lorazepam Monitoring:trough lithium level in AM of 05/24/21 just prior to AM lithium dose; recheck BUN, Cr, and TSH gracie that time Continue to require involuntary psychiatric hospitalization due to severe symptoms and impaired insight and judgment Follow up on 05/23/21; Time TBD (2) Acute psychosis: Status: Acute Review of Systems All systems reviewed & are unremarkable except as noted in HPI and below PFSH Active Problem List Lina (Acute) Acute psychosis (Acute) Schizophrenia (Chronic) Psychotic episode (Acute) Schizophrenia (Chronic) Discharge planning issues (Acute) Hypokalemia (Acute) Hyperglycemia (Acute) Acute prerenal azotemia (Acute) Psychosis (Acute) Medical History Abdominal pain Alcohol dependence in remission Anxiety and depression Low back pain Numbness and tingling of right arm Numbness in feet Post herpetic neuralgia Shingles Surgical History H/O arthroscopic knee surgery Social History Smoking/Tobacco Use Status: Never Smoking risk assessment performed?: Yes Alcohol Intake: current Substance use type: former substance user Details: Patient unable to tell staff about alcohol/ drug use Additional Social history: unable to verbalize at time of triage Exam Psych Appearance: disheveled and other Mental Status: other (motor agitation continues, but is less pronounced.) Speech and Movement: pressured speech and other (rhyming pattern, mostly incoherent content) Mood: dysthymic mood, euphoric mood, labile mood and irritable mood Affect: animated, hostile, euphoric affect, dysphoric affect, irritable affect and elated Attitude: cooperative (moderately more cooperative) Thought Process: illogical, loose association, perseverating and tangential Thought Content: delusions and ideas of reference Insight: poor Results Last Vital Signs Temp 36.5 C 05/22/21 11:55 Pulse 78 05/22/21 11:55 Resp 18 05/22/21 11:55 BP 123/72 05/22/21 11:55 Pulse Ox 95 05/22/21 11:55 Labs Result diagrams: 05/22/21 12:00 05/22/21 12:00 Labs: Laboratory Results - last 24 hr 05/22/21 05/22/21 12:00 12:00 WBC 6.74 RBC 4.43 Hgb 12.8 L Hct 40.4 MCV 91.2 MCH 28.9 MCHC 31.7 L RDW 13.8 Plt Count 263 MPV 8.7 Immature Gran % 0.4 Neutrophils % 64.1 Lymphocytes % 25.4 Monocytes % 7.3 Eosinophils % 2.2 Basophils % 0.6 Nucleated RBC % 0 Absolute Neutrophils 4.32 Absolute Lymphocytes 1.71 Absolute Monocytes 0.49 Absolute Eosinophils 0.15 Absolute Basophils 0.04 Sodium 140 Potassium 4.3 Chloride 105 Carbon Dioxide 28.9 Anion Gap 6.1 BUN 18 Creatinine 0.9 Estimated GFR/1.73 m2 >= 60.00 Glucose 99 Calcium 9.2 Magnesium 2.4 Total Bilirubin 0.3 AST 11 L ALT 24 Alkaline Phosphatase 63 Troponin I < 0.05 Total Protein 6.9 Albumin 3.1 L
[2021-05-22 13:55] LABS: TSH (W/Ref FT4) 2.11 uIU/mL (0.36-3.74)
--- NOTE | 2021-05-22 14:19 | NUR.NOTE ---
Talking with mental health on ipad. Nursing Note:
--- NOTE | 2021-05-22 14:36 | NUR.NOTE ---
Talking with daycare director. Nursing Note:
--- NOTE | 2021-05-22 15:11 | CMSP_ITS ---
- If Service Date Differs Date of service: 05/22/21 Time of Service: 15:12 Care Management Safety Plan Status: Involuntary - Reason for Wait Reason for Wait: Inpatient Admission Safety plan has been established to meet the needs of the patient, and consideration of the care team, to adhere to patient goals, identify restrictions based on behavioral status, address nutrition, and determine allowed personal belongings, tools for hygiene and personal care. Determine level of activity including ambulation, level of supervision, visitors, and determine privileges based on behaviors and level of engagement by pt. SAFETY PLAN: 1. Will remain on SI/HI precautions. In Paper Clothes 2. Will remain in room under direct supervision of one-on-one staff at all times provided by CPSO, ASSEMBLY CLEANER, KINDERGARTEN CLASSROOM TEACHER it support specialist. 3. May have paper cups, plates, finger foods as well as a cardboard spoon with which to eat meals. 4. Follow [facility] Management of the Admitted Behavioral Health Patient policy. 5. Comfort bath system only. 6. No personal belongings. 7. Visitors: Per [facility] Covid policy and at RN discretion. 8. Activities: Soft cart items, crayons, coloring book, television if available, music tablet, and other activities at RN discretion. 9. Bathroom privileges with supervision while in the ED. 10. Phone: Use of hospital phone at RN discretion. 11. Due to INVOLUNTARY status, patient is being held at [facility] by the Department of Mental Health ([facility]). The 2nd certification by [facility] Psychiatrist occurred on May 20, 2021 and the EE was upheld. Staff will provide de-escalation support (CPI) as needed. If patient wishes to leave [facility], staff will contact [facility] Crisis Screener ([phone]) and On-Call Asset Protection Greeter ([phone]) as soon as possible. In the event of elopement, notify [place] [employer] Police ( [phone]). Patient is currently involuntarily at [facility]. [facility] Frontline Cover Maker will continue seeking placement. Please contact the Vinyl Hanger Asset Protection Greeter ([phone]) for any needed changes to Safety Plan. Safety plan has been provided to interdepartmental care team. Patient will be transported by [employer] at time of discharge.
--- NOTE | 2021-05-22 15:11 | PDOC.CMSAFED ---
- If Service Date Differs Date of service: 05/22/21 Time of Service: 15:12 Care Management Safety Plan Status: Involuntary - Reason for Wait Reason for Wait: Inpatient Admission Safety plan has been established to meet the needs of the patient, and consideration of the care team, to adhere to patient goals, identify restrictions based on behavioral status, address nutrition, and determine allowed personal belongings, tools for hygiene and personal care. Determine level of activity including ambulation, level of supervision, visitors, and determine privileges based on behaviors and level of engagement by pt. SAFETY PLAN: 1. Will remain on SI/HI precautions. In Paper Clothes 2. Will remain in room under direct supervision of one-on-one staff at all times provided by CPSO, SECURITIES RESEARCH ANALYST, TELECOMMUNICATIONS PROJECT MANAGER medical record librarians teacher. 3. May have paper cups, plates, finger foods as well as a cardboard spoon with which to eat meals. 4. Follow [facility] Management of the Admitted Behavioral Health Patient policy. 5. Comfort bath system only. 6. No personal belongings. 7. Visitors: Per [facility] Covid policy and at RN discretion. 8. Activities: Soft cart items, crayons, coloring book, television if available, music tablet, and other activities at RN discretion. 9. Bathroom privileges with supervision while in the ED. 10. Phone: Use of hospital phone at RN discretion. 11. Due to INVOLUNTARY status, patient is being held at [facility] by the Department of Mental Health ([facility]). The 2nd certification by [facility] Psychiatrist occurred on May 20, 2021 and the EE was upheld. Staff will provide de-escalation support (CPI) as needed. If patient wishes to leave [facility], staff will contact [facility] Crisis Screener ([phone]) and On-Call Pourer Metal ([phone]) as soon as possible. In the event of elopement, notify [place] State Police ([phone]). Patient is currently involuntarily at [facility]. [facility] Frontline Armature Repairer will continue seeking placement. Please contact the Mortgage Protection Specialist Pourer Metal ([phone]) for any needed changes to Safety Plan. Safety plan has been provided to interdepartmental care team. Patient will be transported by [employer] at time of discharge.
--- NOTE | 2021-05-22 15:16 | PDOC.ERCMPRO ---
- If Service Date Differs Date of service: 05/22/21 Time of Service: 15:16 Care Management Progress Note S/O: Jared is sitting up in bed when CM comes to meet with him. He talks about the various jobs he's had over the years and tells CM he understands institutions and how the government pulls the wool over people's eyes. His speech is pressured and his speech pattern is at times rhythmic. He frequently rubs the palm of his hands together or on his thighs as his agitation level rises. Eye contact is poor. He gives CM several pages where he's written names and words but most of his writing is incoherent. CM will continue to follow. A: Jared is a 65 year old male admitted to [facility] on 05/17/2021 for psychosis. P: Referrals are fax[facility] to [facility], [facility], [facility], and [facility] for review. There are no available psychiatric beds currently. Jared will remain at [facility] while [facility] continues to seek an involuntary placement for him. He will be assessed daily by [facility] until placement is secured. CM will continue to follow. - Status Status: Involuntary - Reason for Wait Reason for Wait: Inpatient Admission
[2021-05-22 17:21] LABS: Troponin I < 0.05 ng/mL (<0.06)
[2021-05-22] MEDS: Famotidine 20 MG TAB PO (20:53)
[2021-05-22 22:45] VITALS: BP 122/88; PULSE 93; RESP 18; TEMP 37; O2SAT 98
[2021-05-22] MEDS: OLANZapine 10 MG TAB 30 MG PO (22:45)
[2021-05-23] MEDS: Lithium Carbonate 150 MG CAP 300 MG PO ×2 (07:17→20:57)
[2021-05-23] MEDS: LORazepam 1 MG TAB PO ×3 (07:17→20:57)
[2021-05-23] MEDS: Famotidine 20 MG TAB PO (07:17)
--- NOTE | 2021-05-23 09:23 | PDOC.MHCN_ITS ---
Date of service: 05/22/21 Time of Service: 09:24 Mental Health Crisis Note Presenting Issue How did you arrive at the ED and why did you come: This is the Pt's [facility] screen for the day while he waits on involuntary status at [facility]. Precipitating Factors Pt continues to deny SI and HI. He is still struggling with some delusional thoughts however those are improving it appears likely due to accepting of medications. Although some of his insight is good his time frame is off by years in most situations. Disposition BEHAVIOR: Pt is calm and cooperative and engaged in the assessment. EYE CONTACT: Pt makes good eye contact. MOOD: Pt's mood appeared upbeat mostly. He is appropriately agitated when he is hearing things he does not agree with i.e. that he is involuntary. AFFECT: Affect is congruent with mood. APPETITE: Pt is eating well. SLEEP(trouble falling/staying asleep: Pt is sleeping fine. Plan Pt is still struggling with lapses in time of when he has done certain things. Although he states that he will follow through with outpatient treatment this cannot be trusted at this time based on recent events and history. Pt will remain at [facility] pending acceptance to a hospital. All hospitals were called and not beds are available. [facility] may be interested tomorrow and this clinician was asked to ask for Colette Obrien or Carlos as based on the more recent behaviors he seems like a good candidate for a bed. Signature Clinician's Name/Title: Chitra Patel MS, [facility] Emergency Services Clinician, [facility]
--- NOTE | 2021-05-23 09:31 | PDOC.MHCN_ITS ---
Date of service: 05/23/21 Time of Service: 09:31 Mental Health Crisis Note Presenting Issue How did you arrive at the ED and why did you come: This is the Pt's [facility] screen for the day while he waits on involuntary status at [facility]. Precipitating Factors Pt continues to deny SI and HI. There were not signs of delusions this am however, this clinician woke him up. Disposition BEHAVIOR: Pt is pleasant and cooperative. EYE CONTACT: Pt makes good eye contact. MOOD: Pt is calm and quiet. AFFECT: Pt's affect is congruent. APPETITE: Pt is waiting for his breakfast to arrive. He reported it has improved. SLEEP(trouble falling/staying asleep: Pt stated he woke once last night but was able to fall back asleep. Plan [facility] continues to seek placement. He will remain at [facility] pending acceptance and be screened twice daily until placement is found. Signature Clinician's Name/Title: Chitra Patel MS, [facility] Emergency Services Clinician, [facility]
--- NOTE | 2021-05-23 09:31 | PDOC.MHCN ---
Date of service: 05/23/21 Time of Service: 09:31 Mental Health Crisis Note Presenting Issue How did you arrive at the ED and why did you come: This is the Pt's [facility] screen for the day while he waits on involuntary status at [facility]. Precipitating Factors Pt continues to deny SI and HI. There were not signs of delusions this am however, this clinician woke him up. Disposition BEHAVIOR: Pt is pleasant and cooperative. EYE CONTACT: Pt makes good eye contact. MOOD: Pt is calm and quiet. AFFECT: Pt's affect is congruent. APPETITE: Pt is waiting for his breakfast to arrive. He reported it has improved. SLEEP(trouble falling/staying asleep: Pt stated he woke once last night but was able to fall back asleep. Plan [facility] continues to seek placement. He will remain at [facility] pending acceptance and be screened twice daily until placement is found. Signature Clinician's Name/Title: Chitra Patel MS, [facility] Emergency Services Clinician, [facility]
--- NOTE | 2021-05-23 14:34 | CMSP_ITS ---
- If Service Date Differs Date of service: 05/23/21 Time of Service: 14:34 Care Management Safety Plan Status: Involuntary - Reason for Wait Reason for Wait: Inpatient Admission Safety plan has been established to meet the needs of the patient, and consideration of the care team, to adhere to patient goals, identify restrictions based on behavioral status, address nutrition, and determine allowed personal belongings, tools for hygiene and personal care. Determine level of activity including ambulation, level of supervision, visitors, and determine privileges based on behaviors and level of engagement by pt. SAFETY PLAN: 1. Will remain on SI/HI precautions. In Paper Clothes 2. Will remain in room under direct supervision of one-on-one staff at all times provided by CPSO, CLERICAL CLERK, SPONGE MAKER coping machine operator. 3. May have paper cups, plates, finger foods as well as a cardboard spoon with which to eat meals. 4. Follow [facility] Management of the Admitted Behavioral Health Patient policy. 5. Comfort bath system only. 6. No personal belongings. 7. Visitors: Per [facility] Covid policy and at RN discretion. 8. Activities: Soft cart items, crayons, coloring book, television if available, music tablet, and other activities at RN discretion. 9. Bathroom privileges with supervision while in the ED. 10. Phone: Use of hospital phone at RN discretion. 11. Due to INVOLUNTARY status, patient is being held at [facility] by the Department of Mental Health ([facility]). The 2nd certification by [facility] Psychiatrist occurred on May 20, 2021 and the EE was upheld. Staff will provide de-escalation support (CPI) as needed. If patient wishes to leave [facility], staff will contact [facility] Crisis Screener ([phone]) and On-Call Deposition Operator ([phone]) as soon as possible. In the event of elopement, notify [place] [employer] Police ( [phone]). Patient is currently involuntarily at [facility]. [facility] Frontline Artisan Plasterer will continue seeking placement. Please contact the Disaster Recovery Manager Deposition Operator ([phone]) for any needed changes to Safety Plan. Safety plan has been provided to interdepartmental care team. Patient will be transported by [employer] at time of discharge.
--- NOTE | 2021-05-23 14:34 | PDOC.CMSAFED ---
- If Service Date Differs Date of service: 05/23/21 Time of Service: 14:34 Care Management Safety Plan Status: Involuntary - Reason for Wait Reason for Wait: Inpatient Admission Safety plan has been established to meet the needs of the patient, and consideration of the care team, to adhere to patient goals, identify restrictions based on behavioral status, address nutrition, and determine allowed personal belongings, tools for hygiene and personal care. Determine level of activity including ambulation, level of supervision, visitors, and determine privileges based on behaviors and level of engagement by pt. SAFETY PLAN: 1. Will remain on SI/HI precautions. In Paper Clothes 2. Will remain in room under direct supervision of one-on-one staff at all times provided by CPSO, THERAPIST OCCUPATIONAL, YOUTH PROGRAM DIRECTOR mixer operator raw salt. 3. May have paper cups, plates, finger foods as well as a cardboard spoon with which to eat meals. 4. Follow [facility] Management of the Admitted Behavioral Health Patient policy. 5. Comfort bath system only. 6. No personal belongings. 7. Visitors: Per [facility] Covid policy and at RN discretion. 8. Activities: Soft cart items, crayons, coloring book, television if available, music tablet, and other activities at RN discretion. 9. Bathroom privileges with supervision while in the ED. 10. Phone: Use of hospital phone at RN discretion. 11. Due to INVOLUNTARY status, patient is being held at [facility] by the Department of Mental Health ([facility]). The 2nd certification by [facility] Psychiatrist occurred on May 20, 2021 and the EE was upheld. Staff will provide de-escalation support (CPI) as needed. If patient wishes to leave [facility], staff will contact [facility] Crisis Screener ([phone]) and On-Call Drug Safety Physician ([phone]) as soon as possible. In the event of elopement, notify [place] State Police ([phone]). Patient is currently involuntarily at [facility]. [facility] Frontline Retail Sales Representative will continue seeking placement. Please contact the Security Delivery Specialist Drug Safety Physician ([phone]) for any needed changes to Safety Plan. Safety plan has been provided to interdepartmental care team. Patient will be transported by [employer] at time of discharge.
--- NOTE | 2021-05-23 14:35 | PDOC.ERCMPRO ---
- If Service Date Differs Date of service: 05/23/21 Time of Service: 14:35 Care Management Progress Note S/O: Jared is sitting up in bed when CM meets with him today. He is pleasant and talkative. He tells CM that he worked at [facility] for a period of time and wants to know his dates of employment. CM contacts HR to obtain the information for Jarde but they are unable to find any employee records for him. CM returns to see Jared late afternoon after speaking with his daughter, Klaudia, on the telephone. Klaudia advises the oil is down to 25% at his home and she requests that he call his oil company to order an oil delivery. CM relays this information to Jared but he becomes agitated and refuses to call [employer], alleging that he has to be present at the home for oil to be delivered or the oil may plug the pipes. He also states he wants to find a different oil company because [employer] is too expensive, then goes on a rant about being held at [facility] illegally, etc. CM will continue to follow. A: Jared is a 65 year old male admitted to [facility] on 05/17/2021 for psychosis. P: Referrals are faxed to [facility], [facility], [facility], and [facility] for review. There are no available psychiatric beds currently. Jared will remain at [facility] while [facility] continues to seek an involuntary placement for him. He will be assessed daily by [facility] until placement is secured. CM will continue to follow. - Status Status: Involuntary - Reason for Wait Reason for Wait: Inpatient Admission
--- NOTE | 2021-05-23 18:28 | W.PSYCHFU ---
Date of Service Date of service: 05/23/21 Time of Service: 18:28 Assessment and Plan Assessment and plan (1) Lina: Status: Acute Assessment and plan: Condition i simproving: continue current medications; lithium level in AM Disposition: as per team; pursuing inpatient LOC upon dicharge (2) Acute psychosis: Status: Acute Psychiatry Subjective Narrative:: Adherent to recommended treatment. Seen in follow up through telemdicine. Mood appears to be more stable and he confirms this subjectively. Sleep is improved. No notable outbursts. After a few moments of discussion, he reverts to extrended monologue about various political conspiracies about voter fraud and corruption. Ntably absent through are the restorationism preoccupations and notable mood lability, distress, and apparent emotional anguish. No signifcant verbal or aggressive outbursts. Exam Psych Appearance: grossly normal Mental Status: mental status grossly normal Speech and Movement: pressured speech and other (notably absence of rhyming) Mood: labile mood and irritable mood Affect: labile affect and irritable affect Attitude: cooperative Thought Process: flight of ideas, perseverating and tangential Thought Content: delusions Insight: poor Judgment: poor Objective Medications: Active Inpatient Medications Report Generic Name Dose Route Start Last Admin Trade Name Freq PRN Reason Stop Dose Admin Acetaminophen 650 mg 05/18/21 23:02 05/18/21 23:15 Acetaminophen 325 Mg Tab PO 325 mg Q6H PRN PRN Administration Famotidine 20 mg 05/22/21 17:10 05/23/21 07:17 Famotidine 20 Mg Tab PO 20 mg DAILY FELA Administration [place] Carbonate 300 mg 05/20/21 13:00 05/23/21 07:17 [place] Carbonate 150 Mg Cap PO 300 mg BID FELA Administration Lorazepam 1 mg 05/18/21 08:30 05/23/21 13:48 Lorazepam 1 Mg Tab PO 1 mg TID FELA Administration Olanzapine 30 mg 05/22/21 22:00 05/22/21 22:45 Olanzapine 10 Mg Tab PO 30 mg HS FELA Administration Olanzapine 5 mg 05/22/21 13:30 Olanzapine 5 Mg Tab PO Q4H PRN PRN Discontinued Medications Generic Name Dose Route Start Last Admin Trade Name Freq PRN Reason Stop Dose Admin Al Hydrox/Mg Hydrox/ 0 ml 05/21/21 23:43 05/22/21 00:02 Simethicone 30 ml/ Lidocaine PO 05/21/21 23:44 10 ml HCl 15 ml NOW ONE Administration Diphenhydramine HCl 25 mg 05/18/21 00:19 05/18/21 00:35 Diphenhydramine 25 Mg Cap PO 05/18/21 00:20 25 mg NOW ONE Administration Diphenhydramine HCl 50 mg 05/20/21 00:46 05/20/21 00:53 Diphenhydramine 25 Mg Cap PO 05/20/21 00:47 50 mg NOW ONE Administration Diphenhydramine HCl 25 mg 05/21/21 02:10 05/21/21 02:15 Diphenhydramine 25 Mg Cap PO 05/21/21 02:11 25 mg NOW ONE Administration Diphenhydramine HCl 25 mg 05/21/21 21:18 05/21/21 21:30 Diphenhydramine 25 Mg Cap PO 05/21/21 21:19 25 mg NOW ONE Administration Fosfomycin Tromethamine 3 gm 05/18/21 07:35 05/18/21 07:48 Fosfomycin Tromethamine 3 Gm Packet PO 05/18/21 07:36 3 gm NOW ONE Administration Lorazepam 2 mg 05/17/21 21:51 05/17/21 22:39 Lorazepam 1 Mg Tab PO 05/17/21 21:52 2 mg NOW ONE Administration Lorazepam 1 mg 05/18/21 00:19 05/18/21 00:35 Lorazepam 1 Mg Tab PO 05/18/21 00:20 1 mg NOW ONE Administration Lorazepam 1 mg 05/18/21 08:34 05/18/21 09:01 Lorazepam 1 Mg Tab PO 05/18/21 08:35 1 mg NOW ONE Administration Lorazepam 2 mg 05/19/21 11:04 05/19/21 12:08 Lorazepam 1 Mg Tab PO 05/19/21 11:05 2 mg NOW ONE Administration Lorazepam 1 mg 05/20/21 16:31 05/20/21 16:39 Lorazepam 1 Mg Tab PO 05/20/21 16:32 1 mg NOW ONE Administration Lorazepam 2 mg 05/21/21 02:10 05/21/21 02:15 Lorazepam 1 Mg Tab PO 05/21/21 02:11 2 mg NOW ONE Administration Lorazepam 2 mg 05/21/21 21:18 05/21/21 21:30 Lorazepam 1 Mg Tab PO 05/21/21 21:19 2 mg NOW ONE Administration Olanzapine 10 mg 05/18/21 00:19 05/18/21 00:36 Olanzapine 10 Mg Tab PO 05/18/21 00:20 10 mg NOW ONE Administration Olanzapine 10 mg 05/18/21 10:49 05/18/21 11:04 Olanzapine 10 Mg Tab PO 05/18/21 10:50 10 mg NOW ONE Administration Olanzapine 20 mg 05/18/21 22:00 05/21/21 21:30 Olanzapine 10 Mg Tab PO 20 mg HS FELA Administration Olanzapine 5 mg 05/18/21 20:18 05/22/21 11:34 Olanzapine 5 Mg Tab PO 5 mg Q4H PRN Administration Agitation Pantoprazole Sodium 40 mg 05/22/21 00:07 05/22/21 00:15 Pantoprazole 40 Mg Tabcr PO 05/22/21 00:08 40 mg NOW ONE Administration Risperidone 2 mg 05/18/21 08:30 05/18/21 07:48 Risperidone 1 Mg Tab PO 2 mg BID FELA Administration Risperidone 2 mg 05/17/21 22:41 05/17/21 23:11 Risperidone 1 Mg Tab PO 05/17/21 22:42 2 mg NOW ONE Administration Vitals: Vital Signs - 24 hr 05/22/21 22:45 Temperature 37.0 C Pulse 93 H Respiratory Rate 18 Blood Pressure 122/88 Pulse Oximetry 98 Review of Systems All systems reviewed & are unremarkable except as noted in HPI and below
[2021-05-23] MEDS: OLANZapine 10 MG TAB 30 MG PO (22:30)
[2021-05-24 06:23] LABS: Lithium 0.4 mmol/l (0.6-1.2)
[2021-05-24 06:30] LABS: BUN 20 mg/dL (7-18); Calcium 9.5 mg/dL (8.5-10.1); Chloride 107 mmol/L (98-107); Glucose 112 mg/dL (74-106); Potassium 3.9 mmol/L (3.5-5.1); Sodium 142 mmol/L (136-145); TSH (W/Ref FT4) 5.51 uIU/mL (0.36-3.74)
[2021-05-24 07:02] LABS: FREE T4 0.77 ng/dL (0.76-1.46)
[2021-05-24] MEDS: Famotidine 20 MG TAB PO (09:06)
[2021-05-24] MEDS: LORazepam 1 MG TAB PO ×3 (09:06→23:30)
[2021-05-24] MEDS: Lithium Carbonate 150 MG CAP 300 MG PO ×2 (09:06→23:30)
--- NOTE | 2021-05-24 12:30 | W.PSYCHFU ---
Date of Service Date of service: 05/24/21 Time of Service: 13:04 Assessment and Plan Assessment and plan (1) Lina: Status: Acute Assessment and plan: Continue current medications Inpatient psychiatry pending [place] level pending Follow up 05/25/21 (2) Acute psychosis: Status: Acute Psychiatry Subjective Narrative:: Seen in follow up through telemdicine. States that he feels better, more stable in mood and clearer in his thinking. He reports good sleep overnight. He is able to recount a little more coherently some of the circumstances the preceeded his admission including several days without sleep or food. His thought process is more clear and coherent for a longer period of time, but continues to eventually vear off into goverment conspiracies about corruption of the legal system and politicians. When discussing his need for inptient psychiatric care, he states I want a metal cans supervisor here.He aslo states (MK Ultra was created at [facility]. I youth counselor him the inpatient pscyhaitric treatment remains a recommendation at this time as does continuing medications unchanged. He has a lithium level pending. Exam Psych Appearance: other (less agitated; more cooperative) Mental Status: other (Fully oriented) Speech and Movement: other (less pressured, more coherent, notable absence of rhyming) Mood: irritable mood Affect: labile affect and animated Attitude: cooperative Thought Process: circumstantial, flight of ideas, loose association and perseverating Thought Content: delusions and ideas of reference Insight: poor Judgment: poor Objective Medications: Active Inpatient Medications Report Generic Name Dose Route Start Last Admin Trade Name Freq PRN Reason Stop Dose Admin Acetaminophen 650 mg 05/18/21 23:02 05/18/21 23:15 Acetaminophen 325 Mg Tab PO 325 mg Q6H PRN PRN Administration Famotidine 20 mg 05/22/21 17:10 05/24/21 09:06 Famotidine 20 Mg Tab PO 20 mg DAILY FELA Administration [place] Carbonate 300 mg 05/20/21 13:00 05/24/21 09:06 [place] Carbonate 150 Mg Cap PO 300 mg BID FELA Administration Lorazepam 1 mg 05/18/21 08:30 05/24/21 09:06 Lorazepam 1 Mg Tab PO 1 mg TID FLEA Administration Olanzapine 30 mg 05/22/21 22:00 05/23/21 22:30 Olanzapine 10 Mg Tab PO 30 mg HS FELA Administration Olanzapine 5 mg 05/22/21 13:30 Olanzapine 5 Mg Tab PO Q4H PRN PRN Discontinued Medications Generic Name Dose Route Start Last Admin Trade Name Julia PRN Reason Stop Dose Admin Al Hydrox/Mg Hydrox/ 0 ml 05/21/21 23:43 05/22/21 00:02 Simethicone 30 ml/ Lidocaine PO 05/21/21 23:44 10 ml HCl 15 ml NOW ONE Administration Diphenhydramine HCl 25 mg 05/18/21 00:19 05/18/21 00:35 Diphenhydramine 25 Mg Cap PO 05/18/21 00:20 25 mg NOW ONE Administration Diphenhydramine HCl 50 mg 05/20/21 00:46 05/20/21 00:53 Diphenhydramine 25 Mg Cap PO 05/20/21 00:47 50 mg NOW ONE Administration Diphenhydramine HCl 25 mg 05/21/21 02:10 05/21/21 02:15 Diphenhydramine 25 Mg Cap PO 05/21/21 02:11 25 mg NOW ONE Administration Diphenhydramine HCl 25 mg 05/21/21 21:18 05/21/21 21:30 Diphenhydramine 25 Mg Cap PO 05/21/21 21:19 25 mg NOW ONE Administration Fosfomycin Tromethamine 3 gm 05/18/21 07:35 05/18/21 07:48 Fosfomycin Tromethamine 3 Gm Packet PO 05/18/21 07:36 3 gm NOW ONE Administration Lorazepam 2 mg 05/17/21 21:51 05/17/21 22:39 Lorazepam 1 Mg Tab PO 05/17/21 21:52 2 mg NOW ONE Administration Lorazepam 1 mg 05/18/21 00:19 05/18/21 00:35 Lorazepam 1 Mg Tab PO 05/18/21 00:20 1 mg NOW ONE Administration Lorazepam 1 mg 05/18/21 08:34 05/18/21 09:01 Lorazepam 1 Mg Tab PO 05/18/21 08:35 1 mg NOW ONE Administration Lorazepam 2 mg 05/19/21 11:04 05/19/21 12:08 Lorazepam 1 Mg Tab PO 05/19/21 11:05 2 mg NOW ONE Administration Lorazepam 1 mg 05/20/21 16:31 05/20/21 16:39 Lorazepam 1 Mg Tab PO 05/20/21 16:32 1 mg NOW ONE Administration Lorazepam 2 mg 05/21/21 02:10 05/21/21 02:15 Lorazepam 1 Mg Tab PO 05/21/21 02:11 2 mg NOW ONE Administration Lorazepam 2 mg 05/21/21 21:18 05/21/21 21:30 Lorazepam 1 Mg Tab PO 05/21/21 21:19 2 mg NOW ONE Administration Olanzapine 10 mg 05/18/21 00:19 05/18/21 00:36 Olanzapine 10 Mg Tab PO 05/18/21 00:20 10 mg NOW ONE Administration Olanzapine 10 mg 05/18/21 10:49 05/18/21 11:04 Olanzapine 10 Mg Tab PO 05/18/21 10:50 10 mg NOW ONE Administration Olanzapine 20 mg 05/18/21 22:00 05/21/21 21:30 Olanzapine 10 Mg Tab PO 20 mg HS FELA Administration Olanzapine 5 mg 05/18/21 20:18 05/22/21 11:34 Olanzapine 5 Mg Tab PO 5 mg Q4H PRN Administration Agitation Pantoprazole Sodium 40 mg 05/22/21 00:07 05/22/21 00:15 Pantoprazole 40 Mg Tabcr PO 05/22/21 00:08 40 mg NOW ONE Administration Risperidone 2 mg 05/18/21 08:30 05/18/21 07:48 Risperidone 1 Mg Tab PO 2 mg BID FELA Administration Risperidone 2 mg 05/17/21 22:41 05/17/21 23:11 Risperidone 1 Mg Tab PO 05/17/21 22:42 2 mg NOW ONE Administration Labs Last 24 Hours: Laboratory Results - last 24 hr 05/24/21 05/24/21 06:00 06:00 Sodium 142 Potassium 3.9 Chloride 107 Carbon Dioxide 29.0 Anion Gap 6.0 BUN 20 H Creatinine 1.0 Estimated GFR/1.73 m2 >= 60.00 Glucose 112 H Calcium 9.5 TSH 5.51 H Free T4 0.77 [place] 0.4 L Review of Systems All systems reviewed & are unremarkable except as noted in HPI and below
--- NOTE | 2021-05-24 15:44 | PDOC.MHCN_ITS ---
Date of service: 05/23/21 Time of Service: 20:30 Mental Health Crisis Note Presenting Issue How did you arrive at the ED and why did you come: The patient is on involuntary status at [facility] as of 05.22.21 and is awaiting placement. He is seen for reassessment via telehealth. Mr. Rainey was assessed via zoom 05.12.21 after presenting to [facility] via EMS and was subsequently placed on EE status. At time of admit, he presented with altered mental status, had been exhibiting violent / aggressive behaviors (verbal and physical), and was found to be responding to hallucinatory stimuli. The EE status was rendered void and Mr. Rainey was found to be cooperative with psychiatric medications and discharged from [facility] with follow-up treatment plan 05.16.21. On 05.17.12, Mr. Rainey began exhibiting similar psychotic symptoms during phone interactions with his daughter and ES clinician with additional report that he had not been eating or adhering to prescribed medications from [facility] resulting in redirection to [facility] on a mental health warrant due to evidence of potentially dangerous decompensation. He is compliant with medications while at [facility] but does not continue with medications once discharged. Precipitating Factors Patient presents lying down. He is fully alert and oriented to time, person, place and situation. He is cooperative and relatively calm throughout discussion but does become agitated and raises voice at several points. No appetite or sleep concerns noted. He reports doing much better today and states that he had excellent interactions with the staff. Patient continues to present with paranoid and delusional thought content and repeatedly references mandaen themes and prosecutorial beliefs harbored towards mental health services. Insight and judgment remain limited. Patient continues to perseverate on outpatient treatment and declines need for higher level of care. No report or presenting evidence of hallucinations. He denies SI/HI/SIB, intent or plan. He continues to be medication compliant and no significant incidents noted per [facility] staff. Disposition BEHAVIOR: Cooperative EYE CONTACT: Fair MOOD: much better AFFECT: euthymic APPETITE: No reported issues SLEEP(trouble falling/staying asleep: No reported issues Plan The patient will remain at [facility] on involuntary status and await recommended in- patient treatment to address presenting acute psychosis concerns. He will be assessed twice daily by [facility] until placement is secured. If acuity level decreases, a safety plan for discharge back to the community can be considered. No current capacity. Signature Clinician's Name/Title: Jono Carson [facility] clinician / [facility]
--- NOTE | 2021-05-24 17:26 | CMSP_ITS ---
- If Service Date Differs Date of service: 05/24/21 Time of Service: 17:26 Care Management Safety Plan Status: Involuntary - Reason for Wait Reason for Wait: Inpatient Admission A huddle is held at approximately 14:50 pm with Danay, Nursing Overhead Foreman, ANGELITA Knox, and JESS Baez, in attendance. Safety plan has been established to meet the needs of the patient, and consideration of the care team, to adhere to patient goals, identify restrictions based on behavioral status, address nutrition, and determine allowed personal belongings, tools for hygiene and personal care. Determine level of activity including ambulation, level of supervision, visitors, and determine privileges based on behaviors and level of engagement by pt. SAFETY PLAN: 1. Will remain on SI/HI precautions. In Paper Clothes 2. Will remain in room under direct supervision of one-on-one staff at all times provided by CPSO, MADI, POST FRAMER wine cellar worker. 3. May have paper cups, plates, finger foods as well as a cardboard spoon with which to eat meals. 4. Follow [facility] Management of the Admitted Behavioral Health Patient policy. 5. Comfort bath system only. 6. No personal belongings. 7. Visitors: Per [facility] Covid policy and at RN discretion. 8. Activities: Soft cart items, crayons, coloring book, television if available, music tablet, and other activities at RN discretion. 9. Bathroom privileges with supervision while in the ED. 10. Phone: Use of hospital phone at RN discretion. 11. Due to INVOLUNTARY status, patient is being held at [facility] by the Department of Mental Health ([facility]). The 2nd certification by [facility] Psychiatrist occurred on May 20, 2021 and the EE was upheld. Staff will provide de-escalation support (CPI) as needed. If patient wishes to leave [facility], staff will contact [facility] Crisis Screener ([phone]) and On-Call Tumbling Machine Operator ([phone]) as soon as possible. In the event of elopement, notify [place] [employer] ([phone]). Patient is currently involuntarily at [facility]. [facility] Frontline Concession Cashier will continue seeking placement. Please contact the Ssis Architect Tumbling Machine Operator ([phone]) for any needed changes to Safety Plan. Safety plan has been provided to interdepartmental care team. Patient will be transported by ice cream van vendor at time of discharge.
--- NOTE | 2021-05-24 17:26 | PDOC.CMSAFED ---
- If Service Date Differs Date of service: 05/24/21 Time of Service: 17:26 Care Management Safety Plan Status: Involuntary - Reason for Wait Reason for Wait: Inpatient Admission A huddle is held at approximately 14:50 pm with Danay, Nursing Corrosion Prevention Metal Sprayer, ANGELITA Knox, and JESS Baez, in attendance. Safety plan has been established to meet the needs of the patient, and consideration of the care team, to adhere to patient goals, identify restrictions based on behavioral status, address nutrition, and determine allowed personal belongings, tools for hygiene and personal care. Determine level of activity including ambulation, level of supervision, visitors, and determine privileges based on behaviors and level of engagement by pt. SAFETY PLAN: 1. Will remain on SI/HI precautions. In Paper Clothes 2. Will remain in room under direct supervision of one-on-one staff at all times provided by CPSO, MADI, OWNER/PHOTOGRAPHER field laboratory operator. 3. May have paper cups, plates, finger foods as well as a cardboard spoon with which to eat meals. 4. Follow [facility] Management of the Admitted Behavioral Health Patient policy. 5. Comfort bath system only. 6. No personal belongings. 7. Visitors: Per [facility] Covid policy and at RN discretion. 8. Activities: Soft cart items, crayons, coloring book, television if available, music tablet, and other activities at RN discretion. 9. Bathroom privileges with supervision while in the ED. 10. Phone: Use of hospital phone at RN discretion. 11. Due to INVOLUNTARY status, patient is being held at [facility] by the Department of Mental Health ([facility]). The 2nd certification by [facility] Psychiatrist occurred on May 20, 2021 and the EE was upheld. Staff will provide de-escalation support (CPI) as needed. If patient wishes to leave [facility], staff will contact [facility] Crisis Screener ([phone]) and On-Call Roof Bolter ([phone]) as soon as possible. In the event of elopement, notify [place] [employer] ([phone]). Patient is currently involuntarily at [facility]. [facility] Frontline Registered Nurse Behavioral Health will continue seeking placement. Please contact the [employer] Executive Producer Roof Bolter ([phone]) for any needed changes to Safety Plan. Safety plan has been provided to interdepartmental care team. Patient will be transported by sheriffs at time of discharge.
--- NOTE | 2021-05-24 17:30 | CMPROGNOTE_ITS ---
- If Service Date Differs Date of service: 05/24/21 Time of Service: 17:30 Care Management Progress Note S/O: Jared continues to be mostly calm and cooperative. Today he requests a phone number for his transactional attorney in [place] and CM is able to obtain that number for him ([employer], [place], [place], ). He then requests a yellow folder that he alleges was in his possession when he was brought to the hospital by police. Nursing staff look through his belongings but are unable to locate a yellow folder. When Jared is told that there is no yellow folder in his belongings, he becomes slightly agitated and declares that he is not going to take anymore medication until the folder is located. CM will continue to follow. A: Jared is a 65 year old male admitted to [facility] on 05/17/2021 for psychosis. P: Referrals are faxed to [facility], [facility], [facility], [facility], and the [facility] due to his acuity level. There are no available psychiatric beds currently. Jared will remain at [facility] while [facility] continues to seek an involuntary placement for him. He will be assessed daily by [facility] until placement is secured. CM will continue to follow. - Status Status: Involuntary - Reason for Wait Reason for Wait: Inpatient Admission
[2021-05-24 20:30] VITALS: BP 130/88; PULSE 87; RESP 16; TEMP 36.5; O2SAT 98
[2021-05-24] MEDS: OLANZapine 10 MG TAB 30 MG PO (23:30)
[2021-05-25] MEDS: Famotidine 20 MG TAB PO (09:07)
[2021-05-25] MEDS: Lithium Carbonate 150 MG CAP 300 MG PO ×2 (09:07→20:00)
[2021-05-25] MEDS: LORazepam 1 MG TAB PO ×3 (09:08→20:00)
[2021-05-25] MEDS: Lidocaine 4% Cream 5 GM TUBE TP (11:00)
--- NOTE | 2021-05-25 15:29 | CMSP_ITS ---
- If Service Date Differs Date of service: 05/25/21 Time of Service: 15:29 Care Management Safety Plan Status: Involuntary - Reason for Wait Reason for Wait: Inpatient Admission Safety plan has been established to meet the needs of the patient, and consideration of the care team, to adhere to patient goals, identify restrictions based on behavioral status, address nutrition, and determine allowed personal belongings, tools for hygiene and personal care. Determine level of activity including ambulation, level of supervision, visitors, and determine privileges based on behaviors and level of engagement by pt. SAFETY PLAN: 1. Will remain on SI/HI precautions. In Paper Clothes 2. Will remain in room under direct supervision of one-on-one staff at all times provided by CPSO, LEASE BUYER, AIRPLANE RIGGER sports therapist. 3. May have paper cups, plates, finger foods as well as a cardboard spoon with which to eat meals. 4. Follow [facility] Management of the Admitted Behavioral Health Patient policy. 5. May shower with supervision and at RN discretion. 6. No personal belongings. 7. Visitors: Per [facility] Covid policy and at RN discretion. 8. Activities: Soft cart items, crayons, coloring book, television if available, music tablet, and other activities at RN discretion. 9. Bathroom privileges with supervision while in the ED; may use bathroom in room on Med/Surg without limitation. 10. Phone: Use of hospital phone at RN discretion. 11. Due to INVOLUNTARY status, patient is being held at [facility] by the Department of Mental Health ([facility]). The 2nd certification by [facility] Psychiatrist occurred on May 20, 2021 and the EE was upheld. Staff will provide de-escalation support (CPI) as needed. If patient wishes to leave [facility], staff will contact [facility] Crisis Screener ([phone]) and On-Call Fly Worker ([phone]) as soon as possible. In the event of elopement, notify [place] [employer] ([phone]). Patient is currently involuntarily at [facility]. [facility] Frontline Fruit Buyer will continue seeking placement. Please contact the Accounts Payable Coordinator Fly Worker ([phone]) for any needed changes to Safety Plan. Safety plan has been provided to interdepartmental care team. Patient will be transported by [employer] at time of discharge.
--- NOTE | 2021-05-25 16:52 | PDOC.MHCN ---
Date of service: 05/25/21 Time of Service: 16:52 Mental Health Crisis Note Presenting Issue How did you arrive at the ED and why did you come: Pt has been on EE status since 05.17.2021. Precipitating Factors Pt denied SI and HI. He is still presenting with some delusional thoughts. Disposition BEHAVIOR: Pt is cooperative, friendly and engaged. EYE CONTACT: Pt makes good eye contact. MOOD: Pt is happy but sleepy today. AFFECT: Pt appears tired and is also able to smile. APPETITE: Pt reported appetite is good. SLEEP(trouble falling/staying asleep: Pt reported sleep was good but still feels tired. Plan This clinician consulted with Dr. Price regarding the Pt's medications to see if something could be lessened now that he is not so agitated so that he can be more alert. He will consult with Dr. Pradhan. No beds available today for transfer. He will continue to be screened twice daily by [facility] until placed. Signature Clinician's Name/Title: Chitra Patel MS, [facility] Emergency Services Clinician, [facility]
--- NOTE | 2021-05-25 17:28 | CMPROGNOTE_ITS ---
- If Service Date Differs Date of service: 05/25/21 Time of Service: 17:28 Care Management Progress Note S/O: Jared remains cooperative but continues to have some delusional thoughts. He is eating well and sleeping well. He became upset today after speaking with his brother on the telephone but was able to be redirected. He is sitting on the side of the bed looking through some papers when CM comes to meet with him. He again asks about a yellow folder containing legal documents which we have been unable to locate in his belongings. At his request, CM contacts the [facility] Police Dept to ask if this folder was left at the police station. An officer checks the property locker and is unable to find the folder. This is relayed to Jared. CM will continue to follow. A: Jared is a 65 year old male admitted to [facility] on 05/17/2021 for psychosis. P: Referrals are faxed to [facility], [facility], [facility], [facility], and [facility] due to his acuity level. There are no available psychiatric beds currently. Jared will remain at [facility] while [facility] continues to seek an involuntary placement for him. He will be assessed daily by [facility] until placement is secured. CM will continue to follow. - Status Status: Involuntary - Reason for Wait Reason for Wait: Inpatient Admission
[2021-05-25 17:42] VITALS: BP 144/89; PULSE 80; RESP 17; TEMP 36.4; O2SAT 97
[2021-05-25 18:56] VITALS: BP 144/89; PULSE 80; RESP 17; TEMP 36.4; O2SAT 97
[2021-05-25 19:00] VITALS: BP 118/75; PULSE 74; RESP 14; TEMP 35.9; O2SAT 98
[2021-05-25] MEDS: Melatonin 3 MG TAB PO (21:42)
[2021-05-25] MEDS: OLANZapine 10 MG TAB 30 MG PO (21:42)
--- NOTE | 2021-05-26 05:35 | HPE_ITS ---
Date of service: 05/26/21 Time of Service: 05:35 Assessment and Plan Assessment and plan (1) Acute psychosis: Status: Acute Assessment and plan: Now resolved. He reported to Dr Pradhan on 05/24/21 that he is feeling better, thinking more clearly and sleeping well. Cont current medications: lithium, olanzapine and lorazepam. Efforts are ongoing to find involuntary placement in a psychiatric facility. (2) Hyperglycemia: Status: Acute Assessment and plan: Hemoglobin A1c of 6.1 on 05/18/21. Place on a carb controlled diet. Will repeat a BMP in the AM. (3) Anxiety and depression: Assessment and plan: Psychiatry has evaluated. Most recent telehealth eval. by Dr Pradhan was on 05/24/21. See above. (4) Alcohol dependence in remission: Assessment and plan: No acute concerns for withdrawal. History of Present Illness History of Present Illness Chief Complaint: Agitation and bizarre behavior Narrative: This is a 65 yo male with a PMH of anxiety/depression, herpes zoster with post herpetic neuralgia, alcohol dependence in remission. He presented to the ED on 05/18/21 after being discharged from the ED on 05/16/21. His family re ported agitation/bizarre behaviors, hyperreligiosity and physical aggression. He was evaluated by Dr Pradhan, pyschiatry. During his first interview via telehealth Mr Rainey was somnolent and unable to engage in an evaluation. He was diagnosed with an acute psychotic episode and started on olanzapine lithium and lorazepam. His behavior stabilized and he has not been aggressive. Referrals have been sent to multiple psychiatric facilities but no beds have become available. Continuing efforts are being undertaken to seek an involuntary placement. He has previously been admitted to [facility] on 04/25/19 for primarily mental health reasons and has been evaluated in the ED since then on other occasions. [facility] All Active Problems Lina (Acute) Acute psychosis (Acute) Schizophrenia (Chronic) Psychotic episode (Acute) Schizophrenia (Chronic) Discharge planning issues (Acute) Hypokalemia (Acute) Hyperglycemia (Acute) Acute prerenal azotemia (Acute) Psychosis (Acute) Medical History Abdominal pain Alcohol dependence in remission Anxiety and depression Low back pain Numbness and tingling of right arm Numbness in feet Post herpetic neuralgia Shingles Surgical History H/O arthroscopic knee surgery Social History Smoking/Tobacco Use Status: Never Smoking risk assessment performed?: Yes Alcohol Intake: current Substance use type: former substance user Details: Patient unable to tell staff about alcohol/ drug use Additional Social history: unable to verbalize at time of triage Meds Allergies and Home Medications Allergies Allergy/AdvReac Type Severity Reaction Status Date / Time naproxen [From Aleve] AdvReac Hives Unverified 04/25/19 15:30 Home Medications Medication Instructions Recorded Confirmed Type multivitamin [Multiple Vitamins] 1 tab PO DAILY #0 tab 04/29/19 05/13/21 Rx thiamine mononitrate (vit B1) 100 mg PO DAILY #0 tab 04/29/19 05/13/21 Rx [Vitamin B-1 (mononitrate)] lorazepam [Ativan] 1 mg PO BID PRN #7 tab 05/16/21 05/18/21 Rx risperidone [Risperdal] 2 mg PO BID #14 tab 05/16/21 05/18/21 Rx Exam Narrative Exam Narrative: Asleep; Easily woken with verbal stimuli Const General: cooperative and no acute distress HENMT Head: normocephalic and atraumatic Eyes General: appearance normal, both eyes and all related structures Sclera: sclerae normal Resp Effort & Inspection: normal respiratory effort Auscultation: clear to auscultation bilaterally Cardio Rate: regular rate Rhythm: regular rhythm Heart Sounds: S1 normal and S2 normal GI Palpation: soft and nontender Skin General skin exam: no rashes or lesions noted Neuro General: no focal motor deficits Cognition: normal cognition Speech: speech normal Extrem General: no pedal edema and no calf tenderness Psych Appearance: grossly normal Mental Status: mental status grossly normal Speech and Movement: speech and movement normal Affect: blunted Attitude: cooperative Thought Process: perseverating (mild perseveration on past events and medical history.) Thought Content: normal Results Labs Result diagrams: 05/22/21 12:00 05/24/21 06:00 Last Vital Signs Temp 35.9 C L 05/25/21 19:00 Pulse 74 05/25/21 19:00 Resp 14 05/25/21 19:00 BP 118/75 05/25/21 19:00 Pulse Ox 98 05/25/21 19:00
[2021-05-26] MEDS: Lithium Carbonate 300 MG CAP PO (07:43)
[2021-05-26] MEDS: Celecoxib 100 MG CAP PO (07:44)
[2021-05-26] MEDS: Famotidine 20 MG TAB PO (07:44)
[2021-05-26] MEDS: LORazepam 1 MG TAB PO ×2 (07:44→13:39)
[2021-05-26 07:54] LABS: Folate 4.6 ng/mL (8.6-20.0); Vitamin B12 250 pg/mL (193-986)
[2021-05-26] MEDS: Diclofenac 1% Gel 100 GM TUBE TP ×2 (08:00→12:20)
[2021-05-26 08:01] VITALS: BP 115/79; PULSE 73; RESP 18; TEMP 36.7; O2SAT 98
[2021-05-26 08:16] LABS: Iron 79 ug/dL (65-175); Total Iron Binding Capacity 281 ug/dL (250-450); Transferrin Sat 28 % (20-55)
--- NOTE | 2021-05-26 13:41 | W.PM.DS.N ---
Date of service: 05/26/21 Time of Service: 13:41 DS: Diagnosis Discharge Diagnosis (1) Acute psychosis: Start date: 05/26/21 Start time: 13:41 Status: Acute Asessment and Plan: Now resolved. He reported to Dr Pradhan on 05/24/21 that he is feeling better, thinking more clearly and sleeping well. Cont current medications: lithium, olanzapine and lorazepam. Efforts are ongoing to find involuntary placement in a psychiatric facility. Accepted to [facility] (2) Hyperglycemia: Start date: 05/26/21 Start time: 13:42 Status: Acute Asessment and Plan: Glucose has been within normal range (3) Anxiety and depression: Start date: 05/26/21 Start time: 13:44 Asessment and Plan: Psychiatry has evaluated. Most recent telehealth eval. by Dr Pradhan was on 05/24/21. Discusssed with Dr. Lipscomb Discharge Plan Disposition Patient Disposition: [facility] Condition: Stable Discharge Details Reason For Visit: Acute Psychosis Admit Date/Time: 05/25/21 17:21 Admit Provider: Srinivas Emerson Attending Provider: Srinivas Emerson Primary Care Provider: Martha Lopez Hospital Course Hospital Course: This is a 65 yo male with a PMH of anxiety/depression, herpes zoster with post herpetic neuralgia, alcohol dependence in remission. He presented to the ED on 05/18/21 after being discharged from the ED on 05/16/21. His family reported agitation/bizarre behaviors, hyperreligiosity and physical aggression. He was evaluated by Dr Pradhan, pyschiatry. During his first interview via telehealth Mr Rainey was somnolent and unable to engage in an evaluation. He was diagnosed with an acute psychotic episode and started on olanzapine lithium and lorazepam. His behavior stabilized and he has not been aggressive. Since being admitted to floor he has behaved. He has been accepted to [facility] for further management. Home Meds and New Rx's Prescriptions: Continued multivitamin [Multiple Vitamins] Tablet 1 tab PO DAILY Qty: 0 RF: 0 thiamine mononitrate (vit B1) [Vitamin B-1 (mononitrate)] 100 mg Tablet 100 mg PO DAILY Qty: 0 RF: 0 lorazepam [Ativan] 1 mg tablet 1 mg PO BID PRNQty: 7 RF: 0 risperidone [Risperdal] 2 mg tablet 2 mg PO BID Qty: 14 RF: 0 Discharge Instructions Activity:: Activity as Tolerated Equipment/Supplies:: No Equipment Needed Diet:: Carb Counting Discharge Orders Discharge Orders: Discharge Order (Routine); Ordered 05/26/21 Ordered By: Deepa Richards DS: Summary Time Spent with Patient providing and/or coordinating discharge services: Less than 30 minutes Status at Discharge Functional status at discharge: independent ambulation Overall status at discharge: patient is not back to baseline Mental Status: mental status grossly normal and other Speech and Movement: speech and movement normal Mood: other Affect: blunted Exam Narrative Exam Narrative: Asleep; Easily woken with verbal stimuli Const General: cooperative and no acute distress HENMT Head: normocephalic and atraumatic Eyes General: appearance normal, both eyes and all related structures Sclera: sclerae normal Resp Effort & Inspection: normal respiratory effort Auscultation: clear to auscultation bilaterally Cardio Rate: regular rate Rhythm: regular rhythm Heart Sounds: S1 normal and S2 normal GI Palpation: soft and nontender Skin General skin exam: no rashes or lesions noted Neuro General: no focal motor deficits Cognition: normal cognition Speech: speech normal Extrem General: no pedal edema and no calf tenderness Psych Appearance: grossly normal Mental Status: mental status grossly normal and other Speech and Movement: speech and movement normal Mood: other Affect: blunted Attitude: cooperative Thought Process: perseverating (mild perseveration on past events and medical history.) Thought Content: normal DS: Data Vitals/I&O Vitals and I&O: Vital Signs Temperature 36.7 C 05/26/21 08:01 Temperature Source Tympanic 05/26/21 08:01 Pulse 73 05/26/21 08:01 Pulse Rhythm Regular 05/26/21 08:19 Respiratory Rate 18 05/26/21 08:01 Respiratory Effort Non-Labored 05/26/21 08:19 Respiratory Depth Normal 05/26/21 08:19 Respiratory Pattern Normal 05/26/21 08:19 Blood Pressure 115/79 05/26/21 08:01 Blood Pressure Position Sitting 05/17/21 21:43 Pulse Oximetry 98 05/26/21 08:01 Oxygen Delivery Method Room Air 05/26/21 08:01 Oxygen Flow Rate 0 05/26/21 08:01 Pain Level 2 05/25/21 19:00 Comment 05/22/21 11:55 Intake & Output 05/25/21 05/26/21 05/26/21 23:59 11:59 23:59 Other: Voiding Methods Toilet Data Completed and Pending Labs on day of discharge: Labs from last 24 hours 05/26/21 05/26/21 06:50 06:50 Iron 79 TIBC 281 Transferrin % Sat 28 Vitamin B12 250 Folate 4.6 L PFSH All Active Problems Lina (Acute) Acute psychosis (Acute) Schizophrenia (Chronic) Psychotic episode (Acute) Schizophrenia (Chronic) Discharge planning issues (Acute) Hypokalemia (Acute) Hyperglycemia (Acute) Acute prerenal azotemia (Acute) Psychosis (Acute) Medical History Abdominal pain Alcohol dependence in remission Anxiety and depression Low back pain Numbness and tingling of right arm Numbness in feet Post herpetic neuralgia Shingles Surgical History H/O arthroscopic knee surgery Social History Smoking/Tobacco Use Status: Never Smoking risk assessment performed?: Yes Alcohol Intake: current Substance use type: former substance user Details: Patient unable to tell staff about alcohol/ drug use Additional Social history: unable to verbalize at time of triage
--- NOTE | 2021-05-26 14:57 | PDOC.CMDIS ---
- If Service Date Differs Date of service: 05/26/21 Time of Service: 14:57 Care Management Discharge Reason for Hospitalization: acute psychosis Discharge Plan: Jared is being transferred to [facility] for psychiatric stabilization. He will be transported by [facility] coordinated by [facility]. Services Needed at Discharge: Psychiatric Facility - Disposition Disposition: [place] Transport via of:
== END 2021-05-26 14:30 | disposition short-term general hospital (02) | DRG 885 ==
LOC: ER 05-25 17:25 → MS 05-25 18:56
PROVIDERS: Emergency Medicine; Physician Assistant; Student in an Organized Health Care Education/Training Program; Admitting Provider Family Medicine; Emergency Provider Emergency Medicine; PCP Nurse Practitioner; Visit Provider Family Medicine
DX: F30.9 Manic episode, unspecified; F20.9 Schizophrenia, unspecified; R73.9 Hyperglycemia, unspecified; F10.21 Alcohol dependence, in remission; E87.6 Hypokalemia; R79.89 Other specified abnormal findings of blood chemistry; F41.8 Other specified anxiety disorders
CPT/HCPCS: 36415; 36416; 80048; 80053; 80307; 82962; 87635; 93005; 99285; Q3014; 80178; 80320; 80329; 81003; 81015; 82607; 82746; 83036; 83540; 83550; 83735; 84439; 84443; 84484; 85025; 87086; 93010; 99222; 99238; J3490

== ENCOUNTER 2021-11-29 10:59 | Outpatient (REF) | payer MEDICAID, SELFPAY ==
[2021-11-29 14:54] LABS: Abs Immature Grans 0.02 10^3/uL (0.0-0.06); Absolute Basophil Count 0.07 10^3/uL (0.0-0.2); Absolute Eosinophil Count 0.06 10^3/uL (0.0-0.7); Absolute Lymphocyte Count 2.33 10^3/uL (1.2-3.4); Absolute Monocyte Count 0.55 10^3/uL (0.1-0.8); Absolute Neutrophil Count 4.81 10^3/uL (1.2-6.7); Basophils % 0.9; Eosinophils % 0.8; HCT 42.8 % (40.0-50.0); HGB 14.2 g/dL (13.5-17.5); Immature Grans % 0.3; Lymphocytes % 29.7; MCH 28.9 pg (27.0-33.0); MCHC 33.2 % (32.0-36.0); MCV 87 fL (80-95); MPV 9.7 fL (8.0-11.0); Neutrophils % 61.3; Platelet Count 293 10^3/uL (130-400); RBC 4.91 10^6/uL (4.36-5.78); RDW 14.4 % (11.8-14.1); RDW-SD 46.1 fL; WBC 7.84 10^3/uL (4.4-10.8)
[2021-11-29 15:17] LABS: ALT 23 U/L (16-63); AST 19 U/L (15-37); Albumin 4.4 g/dL (3.4-5.0); Alkaline Phosphatase 60 U/L (46-116); Anion Gap 14.2 mmol/L (3-11); BUN 20 mg/dL (7-18); Bilirubin, Total 0.8 mg/dL (0.2-1.0); CO2 21.8 mmol/L (21.0-32.0); CREATININE 1.2 mg/dL (0.70-1.30); Calcium 9.5 mg/dL (8.5-10.1); Chloride 104 mmol/L (98-107); Glucose 152 mg/dL (74-106); Sodium 140 mmol/L (136-145); Total Protein 7.6 g/dL (6.4-8.2)
== END 2021-11-29 11:00 | disposition home or self-care (01) ==
LOC: LBN 10:59
PROVIDERS: PCP Nurse Practitioner; Visit Provider Physician Assistant Medical
DX: F22 Delusional disorders (principal)
CPT/HCPCS: 80053; 85025

== ENCOUNTER 2022-03-02 17:59 | Emergency (ER) | payer MEDICARE, MEDICAID, SELFPAY ==
[2022-03-02 18:07] VITALS: BP 139/88; PULSE 110; RESP 18; O2SAT 96
--- NOTE | 2022-03-02 18:23 | W.ED.GENAD ---
Discharge Plan Disposition Patient Disposition: STILL A PATIENT Condition: Stable Discharge Details Primary Care Provider: Martha Lopez ED Provider: Rodrigo Traore Home Meds and New Rx's Prescriptions: No Action pregabalin [Lyrica] 100 mg capsule 100 mg PO QHS multivitamin [Multiple Vitamins] Tablet 1 tab PO DAILY Qty: 0 0RF thiamine mononitrate (vit B1) [Vitamin B-1 (mononitrate)] 100 mg Tablet 100 mg PO DAILY Qty: 0 0RF risperidone [Risperdal] 2 mg tablet 2 mg PO BID Qty: 14 0RF Medical Decision Making 66-year-old male presents to the ER accompanied by law enforcement under A emergency evaluation warrant by a mental health. Patient is displaying paranoid delusional type behaviors pressured speech, flight of ideas very excited. Unable to get a word and edgewise. He is ranting about his rights. Patient reports that he has recently had shingles. He does have a past medical history of schizophrenia, acute psychosis, angela obstructive sleep apnea and delusional disorder. Please see mental health EEG form. Patient is unable to tell me what medications he normally takes he did state however he did did not take his medications today. Mental health eval ordered, screening labs, oral Haldol Benadryl Ativan we will trial. Will consider IM. 191: Patient is refusing to get dressed in paper scrubs, is refusing to give urine or blood and take p.o. medications at this time. He is now retching in the room and spit on the window. However at this time he is not combative. He has been uncooperative. We will continue to observe him at this time however, we will consider restraining and giving IM medications in order to be able to medically clear the patient. 1925: Sitter at , patient is apparently doing yoga type moves in room, has feet up on wall, and is stretching against the wall, at this time he is re-directable so will hold off on restraining and medicating. 193: Spoke with Klaudia daughter who reports that he may have relapsed and drinking of EtOH recently and that this is a cyclical occurrence ever since his this time of year approximately 4 years ago. He reports that he has been admitted in the past for inpatient psych hold and has been noncompliant with his meds each time he has been discharged. She is also concerned for onset of diabetes and dementia. 1945: Patient is escalating in his behavior and yelling in the room, decision made in agreement with the staff command and control officer to chemically restrain and physically restrain patient if needed in order to obtain medical clearance exam and for patient and staff safety. 1954: Patient being given IM medications, patient is esclateing after injections and is stating I will kill you all, he is banging himself up against the wall, security at BS. 2002: Patient is now physically restrained in four-point restraints. 2023: Breathing eupneic, patient is sleeping. Will obtain blood draw. 2133: Labs are unable to be released into the computer. Hardcopy CBC with no leukocytosis RBCs 4.12 hemoglobin 12.3 hematocrit 36.4, RDW 14.3 platelets are 214, differential is within normal acetaminophen less than 2, salicylate less than two-point potassium 3.3, chloride 106 CO2 22.5 anion gap 13.5, AST 25 ALT 31 ethyl alcohol less than 3.0 TSH 1.15, calcium 8.9 glucose 126 BUN 25 creatinine 1.1 GFR 74 and no other abnormalities. 2157: Patient is unrestrained by staff command and control officer, he is very drowsy at this time. He awakens with verbal stimulus. Breathing eupneic. EE forms filled out. Will plan for mental health evaluation when patient is more awake and cooperative. Medical Records Medical records reviewed: Yes I reviewed the patient's medical records. Lab Data Lab results reviewed: Yes I reviewed the patient's lab results. Lab results narrative: 2133: Labs are unable to be released into the computer. Hardcopy CBC with no leukocytosis RBCs 4.12 hemoglobin 12.3 hematocrit 36.4, RDW 14.3 platelets are 214, differential is within normal acetaminophen less than 2, salicylate less than two-point potassium 3.3, chloride 106 CO2 22.5 anion gap 13.5, AST 25 ALT 31 ethyl alcohol less than 3.0 TSH 1.15, calcium 8.9 glucose 126 BUN 25 creatinine 1.1 GFR 74 and no other abnormalities. HPI General Mode of arrival: ambulatory. Date/Time Provider Initiated Documentation: 03/02/22 18:03. Limitations to Documentation: altered mental status. Information obtained by: patient, police, RN notes reviewed and old records reviewed. HPI Narrative: 66-year-old male presents to the ER accompanied by law enforcement under A emergency evaluation warrant by a mental health. Patient is displaying paranoid delusional type behaviors pressured speech, flight of ideas, very excited. Unable to get a word in edgewise. He is ranting about his rights. Patient reports that he has recently had shingles. He does have a past medical history of schizophrenia, acute psychosis, angela obstructive sleep apnea and delusional disorder. Please see mental health EEG form. Patient is unable to tell me what medications he normally takes he did state however he did did not take his medications today. Related Data Home Medications Medication Instructions Recorded Confirmed multivitamin (Multiple Vitamins 1 tab PO DAILY #0 tabs 04/29/19 05/13/21 tablet) thiamine mononitrate (vit B1) 100 100 mg PO DAILY #0 tabs 04/29/19 05/13/21 mg tablet (Vitamin B-1 (mononitrate)) risperidone 2 mg tablet (Risperdal) 2 mg PO BID #14 tabs 05/16/21 05/18/21 pregabalin 100 mg capsule (Lyrica) 100 mg PO QHS 08/08/21 Previous Rx's Medication Instructions Recorded multivitamin (Multiple Vitamins 1 tab PO DAILY #0 tabs 04/29/19 tablet) thiamine mononitrate (vit B1) 100 100 mg PO DAILY #0 tabs 04/29/19 mg tablet (Vitamin B-1 (mononitrate)) risperidone 2 mg tablet (Risperdal) 2 mg PO BID #14 tabs 05/16/21 Allergies Allergy/AdvReac Type Severity Reaction Status Date / Time naproxen [From Aleve] AdvReac Hives Unverified 04/25/19 15:30 General Stated Complaint: PsychEval KAR: 2 Review of Systems Unobtainable due to mental condition Psychiatric Psychiatric: Reports anxiety, Reports irritability, Reports mood swings and Reports paranoia PFSH All Active Problems Delusional disorder (Acute) LOREN (obstructive sleep apnea) (Chronic) Screening for colon cancer (Acute) Angela (Acute) Acute psychosis (Acute) Schizophrenia (Chronic) Acute prerenal azotemia (Acute) Medical History Abdominal pain Alcohol dependence in remission Anxiety and depression Depression Discharge planning issues Foot deformity, acquired Hyperglycemia Hypokalemia Low back pain Numbness and tingling of right arm Numbness in feet Post herpetic neuralgia Prediabetes Shingles Surgical History H/O arthroscopic knee surgery Social History Smoking/Tobacco Use Status: Never Smoking risk assessment performed?: Yes Alcohol Intake: current Substance use type: former substance user Details: Patient unable to tell staff about alcohol/ drug use Additional Social history: unable to verbalize at time of triage Exam Const General: anxious, disheveled, frail appearing and other (Appears acutely psychotic) Nutritional Appearance: thin Orientation: awake and oriented to person Limitations: behavioral limitations HENMT Head: normal to inspection Eyes General: appearance normal, both eyes and all related structures Alignment and Position: alignment normal Resp Effort & Inspection: normal respiratory effort, able to speak in complete sentences, no cough, no grunting, not labored and no nasal flaring Neuro General: patient awake, gait normal and moves all extremities Cranial Nerves: CN's II-XI intact bilaterally Speech: speech normal Gait: normal gait Motor: muscle tone normal throughout Psych Appearance: disheveled Speech and Movement: agitated and pressured speech Mood: anxious mood, expansive, manic mood, paranoid and irritable mood Affect: animated, anxious affect, irritable affect and elated Attitude: guarded Thought Process: flight of ideas Thought Content: compulsions, delusions, obsessions and phobias Insight: limited Judgment: limited Course Vital Signs Vital signs: Vital Signs Pulse 110 H 03/02/22 18:07 Respiratory Rate 18 03/02/22 18:07 Blood Pressure 139/88 03/02/22 18:07 Pulse Oximetry 96 03/02/22 18:07 Pulse 110 H 03/02/22 18:07 Respiratory Rate 18 03/02/22 18:07 Blood Pressure 139/88 03/02/22 18:07 Blood Pressure Position Sitting 03/02/22 18:07 Pulse Oximetry 96 03/02/22 18:07 Oxygen Delivery Method Room Air 03/02/22 18:07 Oxygen Flow Rate 0 03/02/22 18:07 Critical Care Time Critical Care Time Critical Care Time: Yes Total Critical Care Time: 60 Attestation: I spent greater than 35 minutes addressing this patient's acute life threatening illness. This time was spent engaged in actions directly related to the patient's care. Failure to initiate these interventions would have likely resulted in clinically significant or life threatening deterioration in the patients condition. Sign Out Sign Out Data: Sign Out Comment: Patient is EE'd, He presented with a warrant, he has not had his first MH eval yet due to acute psychosis and being uncooperative. Patient received 5mg Haldol, Benadryl 50mg, and Lorazepam 2mg IM and restrained for approximately 2 hours. He is now unrestrained and sleeping. Hx Schizophrenia and has had multiple inpatient psych admissions. Last updated by Mulu Vu NP at 03/02/22 23:12
[2022-03-02] MEDS: diphenhydrAMINE 50 MG/ML VIAL IM (20:01)
[2022-03-02] MEDS: Haloperidol 5 MG/ML VIAL IM (20:01)
[2022-03-02] MEDS: LORazepam 20 MG/10 ML VIAL IM (20:02)
--- NOTE | 2022-03-02 20:05 | NUR.NOTE ---
Nursing Note:Patient has been escalating in since arrival which includes argumentative behaviors, screaming at patients and staff, and making verbal threats. Several attempts at de-escalation have failed by the provider, farzad HURTADO, Sangeetha RN, and Ambar GOLDSTEIN. Medications were ordered once patient had become disruptive to his own care as well as the care of other patients. Patient initially refused the medications and became belligerent once they were administered. At that point patient became violent, hitting the door several times with his fist, then opened the door and continued to verbally threaten staff Patient had degenerated into a behavioral state that was no longer safe for himself, staff, and the medical care of other patients. Patient was placed into 4-point violent restraints once order was obtained by the provider. Patient was restrained without injury to himself. Each extremity was checked to proper securement, pulse, capillary refill. No acute physical distress noted at this time.
[2022-03-02 20:35] LABS: Abs Immature Grans 0.02 10^3/uL (0.0-0.06); Absolute Basophil Count 0.03 10^3/uL (0.0-0.2); Absolute Eosinophil Count 0.09 10^3/uL (0.0-0.7); Absolute Lymphocyte Count 1.41 10^3/uL (1.2-3.4); Absolute Monocyte Count 0.49 10^3/uL (0.1-0.8); Absolute Neutrophil Count 4.23 10^3/uL (1.2-6.7); Basophils % 0.5; Eosinophils % 1.4; HCT 36.4 % (40.0-50.0); HGB 12.3 g/dL (13.5-17.5); Immature Grans % 0.3; Lymphocytes % 22.5; MCH 29.9 pg (27.0-33.0); MCHC 33.8 % (32.0-36.0); MCV 88 fL (80-95); MPV 8.7 fL (8.0-11.0); Monocytes % 7.8; Neutrophils % 67.5; Platelet Count 214 10^3/uL (130-400); RBC 4.12 10^6/uL (4.36-5.78); RDW 14.3 % (11.8-14.1); RDW-SD 46.5 fL; WBC 6.27 10^3/uL (4.4-10.8)
[2022-03-02 21:04] LABS: ALT 31 U/L (16-63); AST 25 U/L (15-37); Acetaminophen < 2 ug/mL (10-30); Albumin 3.4 g/dL (3.4-5.0); Alkaline Phosphatase 56 U/L (46-116); Anion Gap 13.5 mmol/L (3-11); BUN 25 mg/dL (7-18); Bilirubin, Total 0.5 mg/dL (0.2-1.0); CO2 22.5 mmol/L (21.0-32.0); CREATININE 1.1 mg/dL (0.70-1.30); Calcium 8.9 mg/dL (8.5-10.1); Chloride 106 mmol/L (98-107); ETHANOL BLOOD < 3.0 mg/dL (<10); Glucose 126 mg/dL (74-106); Potassium 3.3 mmol/L (3.5-5.1); Salicylate < 2.8 mg/dL (<2.8); Sodium 142 mmol/L (136-145); TSH (W/Ref FT4) 1.15 uIU/mL (0.36-3.74); Total Protein 6.9 g/dL (6.4-8.2)
[2022-03-02 22:18] VITALS: BP 125/84; PULSE 65; RESP 18; TEMP 36.5; O2SAT 93
[2022-03-02 23:26] LABS: Source Nasal/Nares
[2022-03-02 23:57] LABS: COVID-19 PCR Negative (Negative)
--- NOTE | 2022-03-03 08:27 | W.EDPROG ---
Date of service: 03/03/22 Time of Service: 08:27 Medical Decision Making 0800 --please see previous providers notes for initial presentation, exam and plan. Case endorsed with plan for second certificate to be completed and awaiting placement. Patient continues to come out of the room to the nurses station asking if his primary care doctor has been made aware that patient is in the emergency department. Patient required chemical and physical restraints last night due to increasingly aggressive behavior and spitting. A dose of Zyprexa p.o. was ordered to which patient was initially resistant and eventually took this medication willingly. 1100 -- Pt evaluated by Lui with [facility] -- he had difficulty doing an assessment as pt is quite disorganized in his thinking. Second certificate at 1700. 1730 --patient behavior escalating again. He is screaming in his doorway asking that someone call his primary care doctor Dr. Contreras. He is screaming at multiple staff members. He is throwing things at his door and banging his hands against the wall. Ativan and Haldol p.o. ordered which patient refused. Haldol, Ativan and Benadryl IM ordered which patient then refused and willingly took Ativan and Haldol p.o. 1999 --second certificate completed. Case endorsed to Dr. Fuentes to continue to monitor overnight. Awaiting placement. Medical Records Medical records reviewed: Yes I reviewed the patient's medical records. Sign Out Sign Out Data: Sign Out Comment: Patient is EE'd, He presented with a warrant, he has not had his first MH eval yet due to acute psychosis and being uncooperative. Patient received 5mg Haldol, Benadryl 50mg, and Lorazepam 2mg IM and restrained for approximately 2 hours. He is now unrestrained and sleeping. Hx Schizophrenia and has had multiple inpatient psych admissions. Last updated by Mulu Vu NP at 03/02/22 23:12 Sign Out Comment: EE, awaits cert. No issues overnight Last updated by Rodrigo Traore MD at 03/03/22 06:51 Sign Out Comment: EE. Second certificate completed this evening. Multiple outbursts today. IM meds ordered but he eventually agreed and willingly took PO meds. Awaiting placement. Last updated by Sherry Vega DO at 03/03/22 19:39 Sign Out Comment: EE. 2nd cert complete. Some verbal aggression overnight. Awaiting placement Last updated by Srinivas Fuentes MD at 03/04/22 07:19 Sign Out Comment: No issues today. Behavior stabilized and he is overall more calm and cooperative. Taking scheduled meds. Awaiting placement. If no beds available tomorrow for transfer, consider admission to the floor while awaiting placement. Last updated by Sherry Vega DO at 03/04/22 19:25 Sign Out Comment: EE for SI and HI, second cert completed, awaiting placement; daily meds ordered, patient compliant, no events overnight, improving mood and behavior Last updated by Srinivas Fuentes MD at 03/05/22 07:00 Sign Out Comment: Patient refused Risperdal this morning, took p.o. Zyprexa. Patient signed out to Dr. Traore awaiting inpatient placement. Last updated by Lanette Bell MD at 03/05/22 16:04 Sign Out Comment: EE, awaits placement. No issues on evening shift. Last updated by Rodrigo Traore MD at 03/05/22 22:46 Sign Out Comment: Calm, cooperative overnight. EE, awaiting placement. Last updated by Srinivas Fuentes MD at 03/06/22 07:29 Discharge Plan Disposition Patient Disposition: [facility] Condition: Stable Discharge Details Clinical Impression: Acute psychosis Primary Care Provider: Esha Morgan ED Provider: Sherry Vega Home Meds and New Rx's Prescriptions: No Action pregabalin [Lyrica] 100 mg capsule 100 mg PO QHS multivitamin [Multiple Vitamins] Tablet 1 tab PO DAILY Qty: 0 0RF thiamine mononitrate (vit B1) [Vitamin B-1 (mononitrate)] 100 mg Tablet 100 mg PO DAILY Qty: 0 0RF risperidone [Risperdal] 2 mg tablet 2 mg PO BID Qty: 14 0RF Discharge Data Discharge Date/Time-TO BE ENTERED AT DEPARTURE: 03/06/22 14:54
[2022-03-03] MEDS: OLANZapine 10 MG TAB PO (09:20)
[2022-03-03] MEDS: LORazepam 1 MG TAB 2 MG PO ×2 (12:37→18:15)
--- NOTE | 2022-03-03 13:00 | CMSP_ITS ---
- If Service Date Differs Date of service: 03/03/22 Time of Service: 13:00 Care Management Safety Plan Status: Involuntary - Reason for Wait Reason for Wait: Inpatient Admission INVOLUNTARY FOR INPATIENT PSYCHIATRIC STABILIZATION. PMH: Schizophrenia, acute psychosis, angela, delusional disorder. Alcohol use in remission. Anxiety and depression. Previously admitted to [facility] for acute psychosis in May of 2021, discharged to [facility]. Safety plan has been established to meet the needs of the patient, and consideration of the care team, to adhere to patient goals, identify r estrictions based on behavioral status, address nutrition, and determine allowed personal belongings, tools for hygiene and personal care. Determine level of activity including ambulation, level of supervision, visitors, and determine privileges based on behaviors and level of engagement by pt. SAFETY PLAN: 1. Will remain on SI/HI precautions. In Paper Clothes 2. Will remain in room under direct supervision of one-on-one staff at all times provided by [employer]; MADI, FIELD COLLECTOR test desk supervisor. 3. May have paper cups, plates, finger foods as well as a cardboard spoon 4. Follow [facility] Management of the Admitted Behavioral Health Patient policy. 5. Comfort bath system only. 6. No personal belongings 7. Visitors: None at this time. 8. Activities: television if available, soft items at RN discretion. 9. Bathroom privileges with escort and supervision 10. Phone: limited to legal contact at this time. 11. Due to INVOLUNTARY status, patient is being held at [facility] by the Department of Mental Health ([facility]) until 2nd certification by [facility] Psychiatrist can be performed (scheduled for 1700 today). Staff will provide de-escalation support (CPI) as needed. If patient wishes to leave [facility], staff will contact [facility] Crisis Screener ([phone]) and On-Call Ruby Rails Developer ([phone]) as soon as possible. In the event of elopement, notify [place] [employer] ([phone]). Patient is currently involuntarily at [facility]. [facility] Frontline Application Technical Designer will continue seeking placement. Please contact the Long Goods Drier Ruby Rails Developer ([phone]) for any needed changes to Safety Plan. Safety plan has been provided to interdepartmental care team. Patient will be transported by [facility] at time of discharge.
--- NOTE | 2022-03-03 13:00 | PDOC.CMSAFED ---
- If Service Date Differs Date of service: 03/03/22 Time of Service: 13:00 Care Management Safety Plan Status: Involuntary - Reason for Wait Reason for Wait: Inpatient Admission INVOLUNTARY FOR INPATIENT PSYCHIATRIC STABILIZATION. PMH: Schizophrenia, acute psychosis, angela, delusional disorder. Alcohol use in remission. Anxiety and depression. Previously admitted to [facility] for acute psychosis in May of 2021, discharged to [facility]. Safety plan has been established to meet the needs of the patient, and consideration of the care team, to adhere to patient goals, identify restrictions based on behavioral status, address nutrition, and determine allowed personal belongings, tools for hygiene and personal care. Determine level of activity including ambulation, level of supervision, visitors, and determine privileges based on behaviors and level of engagement by pt. SAFETY PLAN: 1. Will remain on SI/HI precautions. In Paper Clothes 2. Will remain in room under direct supervision of one-on-one staff at all times provided by [employer]; PUMP SERVICER SUPERVISOR, VENDING ROUTE SERVICER prison classification counselor. 3. May have paper cups, plates, finger foods as well as a cardboard spoon 4. Follow [facility] Management of the Admitted Behavioral Health Patient policy. 5. Comfort bath system only. 6. No personal belongings 7. Visitors: None at this time. 8. Activities: television if available, soft items at RN discretion. 9. Bathroom privileges with escort and supervision 10. Phone: limited to legal contact at this time. 11. Due to INVOLUNTARY status, patient is being held at [facility] by the Department of Mental Health ([facility]) until 2nd certification by [facility] Psychiatrist can be performed (scheduled for 1700 today). Staff will provide de-escalation support (CPI) as needed. If patient wishes to leave [facility], staff will contact [facility] Crisis Screener ([phone]) and On-Call Cash Management Specialist ([phone]) as soon as possible. In the event of elopement, notify [place] [employer] ([phone]). Patient is currently involuntarily at [facility]. [facility] Frontline Physician Neonatology will continue seeking placement. Please contact the Used Car Salesperson Cash Management Specialist ([phone]) for any needed changes to Safety Plan. Safety plan has been provided to interdepartmental care team. Patient will be transported by [employer] at time of discharge.
--- NOTE | 2022-03-03 13:14 | NUTRITION ---
PATIENT ATE A CHICKEN SALAD SANDWICH AT 12:00. HE STATED HE COULD HAVE MADE A BETTER ONE AT HOME, BUT HE DID CONSUME THE ENTIRE SANDWICH.
[2022-03-03] MEDS: Haloperidol 5 MG TAB PO (18:14)
[2022-03-04 06:33] VITALS: BP 101/68; PULSE 66; RESP 15; TEMP 37; O2SAT 97
[2022-03-04] MEDS: risperiDONE 1 MG TAB 2 MG PO ×2 (07:08→19:58)
[2022-03-04] MEDS: OLANZapine 10 MG TAB PO (07:09)
--- NOTE | 2022-03-04 09:35 | CMSP_ITS ---
- If Service Date Differs Date of service: 03/04/22 Time of Service: 09:35 Care Management Safety Plan Status: Involuntary - Reason for Wait Reason for Wait: Inpatient Admission PMH: Schizophrenia, acute psychosis, angela, delusional disorder. Alcohol use in remission. Anxiety and depression. Previously admitted to [facility] for acute psychosis in May of 2021, discharged to [facility]. A safety huddle was held at 3 pm. Attending were: Dr. Vega, nursing slab conditioner supervisor Karley, nurse Vera, charge nurse Sangeetha and JESS Saldivar. Jared has been cooperative and not aggressive with staff today. He has agreed to take some of his medications. He did request to speak with his PCP, Dr. Morgan, in [place]. This was added to the safety plan, but only at the discretion of nursing staff. Safety plan has been established to meet the needs of the patient, and consideration of the care team, to adhere to patient goals, identify restrictions based on behavioral status, address nutrition, and determine allowed personal belongings, tools for hygiene and personal care. Determine level of activity including ambulation, level of supervision, visitors, and determine privileges based on behaviors and level of engagement by pt. SAFETY PLAN: 1. Will remain on SI/HI precautions. In Paper Clothes 2. Will remain in room under direct supervision of one-on-one staff at all times provided by [employer]; MADI, CLUBHOUSE MANAGER arts and crafts instructor. 3. May have paper cups, plates, finger foods as well as a cardboard spoon 4. Follow [facility] Management of the Admitted Behavioral Health Patient policy. 5. Comfort bath system only. 6. No personal belongings 7. Visitors: None at this time. 8. Activities: television if available, soft items at RN discretion. 9. Bathroom privileges with escort and supervision 10. Phone: limited to legal contact and his PCP in [place], Dr. Morgan, at nursing discretion. 11. Due to INVOLUNTARY status, patient is being held at [facility] by the Department of Mental Health ([facility]) [address] [facility] Psychiatrist completed on 03/03/22 at 1700 and was upheld. Staff will provide de-escalation support (CPI) as needed. If patient wishes to leave [facility], staff will contact [facility] Crisis Screener ([phone]) and On-Call Certified Alcohol And Drug Counselor ([phone]) as soon as possible. In the event of elopement, notify [facility] Police ([phone]). Patient is currently involuntarily at [facility]. [facility] Frontline Primary Grade Teacher will continue seeking placement. Please contact the Manager Culinary Certified Alcohol And Drug Counselor ([phone]) for any needed changes to Safety Plan. Safety plan has been provided to interdepartmental care team. Patient will be transported by beehive kiln charcoal burner at time of discharge.
--- NOTE | 2022-03-04 15:05 | ED.PROG_ITS ---
Date of service: 03/04/22 Time of Service: 08:00 Medical Decision Making 0800 --please see previous providers notes for initial presentation, exam, plan and course. Case endorsed to continue to monitor while awaiting placement. 1100 --patient evaluated by mental health at bedside and still remains disorganized in thought. Patient overall appears more cooperative and pleasant today. He is taking his scheduled medication. 1600 --discussed with nursing carbon electrodes supervisor regarding possible admission to the floor after 48 hr as pt has been cooperative with no code aldrich. Pending floor bed availability, if no transfer tomorrow, can consider admission upstairs. 1999 --Case endorsed to Dr. Fuentes to monitor overnight while awaiting placement. Sign Out Sign Out Data: Sign Out Comment: Patient is EE'd, He presented with a warrant, he has not had his first MH eval yet due to acute psychosis and being uncooperative. Patient received 5mg Haldol, Benadryl 50mg, and Lorazepam 2mg IM and restrained for approximately 2 hours. He is now unrestrained and sleeping. Hx Schizophrenia and has had multiple inpatient psych admissions. Last updated by Mulu Vu NP at 03/02/22 23:12 Sign Out Comment: EE, awaits cert. No issues overnight Last updated by Rodrigo Traore MD at 03/03/22 06:51 Sign Out Comment: EE. Second certificate completed this evening. Multiple outbursts today. IM meds ordered but he eventually agreed and willingly took PO meds. Awaiting placement. Last updated by Sherry Vega DO at 03/03/22 19:39 Sign Out Comment: EE. 2nd cert complete. Some verbal aggression overnight. Awaiting placement Last updated by Srinivas Fuentes MD at 03/04/22 07:19 Sign Out Comment: No issues today. Behavior stabilized and he is overall more calm and cooperative. Taking scheduled meds. Awaiting placement. If no beds available tomorrow for transfer, consider admission to the floor while awaiting placement. Last updated by Sherry Vega DO at 03/04/22 19:25 Sign Out Comment: EE for SI and HI, second cert completed, awaiting placement; daily meds ordered, patient compliant, no events overnight, improving mood and behavior Last updated by Srinivas Fuentes MD at 03/05/22 07:00 Sign Out Comment: Patient refused Risperdal this morning, took p.o. Zyprexa. Patient signed out to Dr. Traore awaiting inpatient placement. Last updated by Lanette Bell MD at 03/05/22 16:04 Sign Out Comment: EE, awaits placement. No issues on evening shift. Last updated by Rodrigo Traore MD at 03/05/22 22:46 Sign Out Comment: Calm, cooperative overnight. EE, awaiting placement. Last updated by Srinivas Fuentes MD at 03/06/22 07:29 Discharge Plan Disposition Patient Disposition: [facility] Condition: Stable Discharge Details Clinical Impression: Acute psychosis Primary Care Provider: Esha Morgan ED Provider: Sherry Vega [place] Meds and New Rx's Prescriptions: No Action pregabalin [Lyrica] 100 mg capsule 100 mg PO QHS multivitamin [Multiple Vitamins] Tablet 1 tab PO DAILY Qty: 0 0RF thiamine mononitrate (vit B1) [Vitamin B-1 (mononitrate)] 100 mg Tablet 100 mg PO DAILY Qty: 0 0RF risperidone [Risperdal] 2 mg tablet 2 mg PO BID Qty: 14 0RF Discharge Data Discharge Date/Time-TO BE ENTERED AT DEPARTURE: 03/06/22 14:54
[2022-03-05 06:47] VITALS: BP 130/81; PULSE 77; RESP 17; TEMP 36.5; O2SAT 98
[2022-03-05 07:57] LABS: Bilirubin Negative (Negative); Blood Negative (Negative); Clarity Clear (Clear); Glucose Negative (Negative); Ketones Negative (Negative); Leukocyte Esterase Negative (Negative); Nitrite Negative (Negative); Specific Gravity 1.025 (1.005-1.025); Urobilinogen 0.2 EU/dL (Up TO 0.2); pH 5.5 (5-8)
[2022-03-05 08:21] LABS: *AMPHETAMINES SCREEN URINE Negative (Negative); *BARBITURATES SCREEN URINE Negative (Negative); *BENZODIAZEPINES SCREEN URINE Negative (Negative); Cannabinoids THC Positive (Negative); Cocaine Screen,Urine Negative (Negative); METHADONE URINE SCREEN Negative (Negative); OPIATES URINE SCREEN Negative (Negative); Tricyclic Antidepressants Negative (Negative)
[2022-03-05] MEDS: OLANZapine 10 MG TAB PO (09:25)
--- NOTE | 2022-03-05 09:32 | W.EDPROG ---
Date of service: 03/05/22 Time of Service: 07:30 Medical Decision Making Jared Rainey was signed out to me at time of shift change by Dr. Grace Gudino with inpatient placement pending for suicidal/homicidal thinking. Per signout patient has been taking his daily Zyprexa/risperidone. This morning patient refused meds, wanted to confirm that his PCP Dr. Calhoun was in agreement with his treatment plan. I did contact Dr. Calhoun over the phone and discussed patient's presentation and medication regime, which she agreed with. I discussed this with the patient. Patient initially states that he did not want either medication and instead wanted acyclovir for ongoing pain for shingles which Dr. Morgan had treated him for in December of this year. On examination patient has no rash over left lower back/left flank/left abdomen in area of prior shingles. Patient reports that pain/tingling has been ongoing since December. I discussed with patient that further acyclovir is not indicated at this time, and encouraged him to take Zyprexa/Risperdal. Patient reports that he does not want to take Risperdal as it makes me feel sick. Patient refuses Risperdal and agrees to take Zyprexa. No further issues during my shift. Patient signed out to Dr. Traore awaiting inpatient placement. Medical Records Medical records reviewed: Yes I reviewed the patient's medical records. Sign Out Sign Out Data: Sign Out Comment: Patient is EE'd, He presented with a warrant, he has not had his first MH eval yet due to acute psychosis and being uncooperative. Patient received 5mg Haldol, Benadryl 50mg, and Lorazepam 2mg IM and restrained for approximately 2 hours. He is now unrestrained and sleeping. Hx Schizophrenia and has had multiple inpatient psych admissions. Last updated by Mulu Vu NP at 03/02/22 23:12 Sign Out Comment: EE, awaits cert. No issues overnight Last updated by Rodrigo Traore MD at 03/03/22 06:51 Sign Out Comment: EE. Second certificate completed this evening. Multiple outbursts today. IM meds ordered but he eventually agreed and willingly took PO meds. Awaiting placement. Last updated by Sherry Vega DO at 03/03/22 19:39 Sign Out Comment: EE. 2nd cert complete. Some verbal aggression overnight. Awaiting placement Last updated by Srinivas Fuentes MD at 03/04/22 07:19 Sign Out Comment: No issues today. Behavior stabilized and he is overall more calm and cooperative. Taking scheduled meds. Awaiting placement. If no beds available tomorrow for transfer, consider admission to the floor while awaiting placement. Last updated by Sherry Vega DO at 03/04/22 19:25 Sign Out Comment: EE for SI and HI, second cert completed, awaiting placement; daily meds ordered, patient compliant, no events overnight, improving mood and behavior Last updated by Srinivas Fuentes MD at 03/05/22 07:00 Discharge Plan Disposition Patient Disposition: STILL A PATIENT Condition: Stable Discharge Details Clinical Impression: Acute psychosis Primary Care Provider: Martha Lopez ED Provider: Lanette Bell Home Meds and New Rx's Prescriptions: No Action pregabalin [Lyrica] 100 mg capsule 100 mg PO QHS multivitamin [Multiple Vitamins] Tablet 1 tab PO DAILY Qty: 0 0RF thiamine mononitrate (vit B1) [Vitamin B-1 (mononitrate)] 100 mg Tablet 100 mg PO DAILY Qty: 0 0RF risperidone [Risperdal] 2 mg tablet 2 mg PO BID Qty: 14 0RF
--- NOTE | 2022-03-05 10:36 | PDOC.CMSAFED ---
- If Service Date Differs Date of service: 03/05/22 Time of Service: 10:36 Care Management Safety Plan Status: Involuntary - Reason for Wait Reason for Wait: Inpatient Admission PMH: Schizophrenia, acute psychosis, angela, delusional disorder. Alcohol use in remission. Anxiety and depression. Previously admitted to [facility] for acute psychosis in May of 2021, discharged to [facility]. A safety huddle is held at 10:[address]. [address] Lanette Bell, nursing fence supervisor Karley and JESS Baez. RN Brigid is unable to attend huddle but plan is discussed with her following the huddle. NO CHANGES TO SAFETY PLAN AT THIS TIME. Today Jared willingly takes Zyprexa but continues to refuse Respiradol. Safety plan has been established to meet the needs of the patient, and consideration of the care team, to adhere to patient goals, identify restrictions based on behavioral status, address nutrition, and determine allowed personal belongings, tools for hygiene and personal care. Determine level of activity including ambulation, level of supervision, visitors, and determine privileges based on behaviors and level of engagement by pt. SAFETY PLAN: 1. Will remain on SI/HI precautions. In Paper Clothes 2. Will remain in room under direct supervision of one-on-one staff at all times provided by [employer]; MADI, BEER BREWER change advisor. 3. May have paper cups, plates, finger foods as well as a cardboard spoon 4. Follow [facility] Management of the Admitted Behavioral Health Patient policy. 5. Comfort bath system only. 6. No personal belongings 7. Visitors: None at this time. 8. Activities: television if available, soft items at RN discretion. 9. Bathroom privileges with escort and supervision 10. Phone: limited to legal contact and his PCP in [place], Dr. Morgan, at nursing discretion. Staff are to dial the phone number for patient. Phone calls to family members are not permitted at this time, at family's request. 11. Due to INVOLUNTARY status, patient is being held at [facility] by the Department of Mental Health ([facility]) 2nd certification by [facility] Psychiatrist completed on 03/03/22 at 1700 and was upheld. Staff will provide de-escalation support (CPI) as needed. If patient wishes to leave [facility], staff will contact [facility] Crisis Screener ([phone]) and On-Call Spray Mixer ([phone]) as soon as possible. In the event of elopement, notify [facility] Police ([phone]). Patient is currently involuntarily at [facility]. [facility] Frontline Brass Pickler will continue seeking placement. Please contact the Assistant Spray Mixer ([phone]) for any needed changes to Safety Plan. Safety plan has been provided to interdepartmental care team. Patient will be transported by optometric tech at time of discharge.
--- NOTE | 2022-03-05 12:26 | PDOC.MHPN2 ---
Date of service: 03/05/22 Time of Service: 11:50 Mental Health Emergency Note Release [facility] release signed:: Yes Reason for Visit Client is on EE status at [facility]. In the last 2 weeks has the pt presented for ES prior to today?: Unknown Client Information Client is: Adult Outpatient Well Housed: Yes Non Suicidal Self Injury Current: No History: No Safety Risk/Harm to Self or Others Current Ideation to Harm Self or Others: No Risk: Does risk to harm exist?: No Risk: N/A Duty to warn indicated: No Asssessment/Mental Status Appearance: Poor hygiene Attitude: Demanding, Guarded and Hostile Behavior: Poor impulse control, Agitated and Gait disturbances Speech: Loud Affect: Cogruent with mood Mood: Elevated, Stressed, Depressed and Anxious Thought process: Goal directed and Circumstational Hallucinations: No Delusions: yes, Persectory/Paranoid and Bizarre Attention: Unremarkable Perception: Not impaired Orientation: Fully orientated Memory: Intact Insight: Poor Judgement: Poor Neurovegetative Symptoms Sleep: Increase (Client has been able to sleep more since being at [facility].) Appetitie: Increase (Client has been able to eat more since being at [facility].) Interests: No change Energy: No change Libido: Not applicable Substance Use: Do you use nicotine?: No Have you used substances in the last 7 days?: No Additional Issues: Assaultive/Threatening Behavior: No Medical Concerns: No Client engaged in active self harm w/weapon: No Threatening to run away: No Child reported abuse/neglect: No Voluntarily presenting for services: No Domestic violence is a concern: No Extreme Psychosis or extreme behavior is present: Yes Impression DD is experiencing delusions and stating he is paranoid, clinically depressed, and has legal abuse syndrome. DD reports he is scared he may need shoulder surgery and potentially have prostate cancer. DD states he feels better when he is able to go to which he last went to last week; DD struggles with alcoholism. DD feels he should be able to go home. DD was made aware he was at [facility] on an involuntary status, DD became escalated and raised his voice towards this clinician stating she was escalating his clinical depression and abuse syndrome. DD asked this clinician to get out of his room in a loud, aggressive tone. Plan/Disposition Recommended Disposition: Hospitalization ([facility], [facility]) facilities contacted. Plan: DD will remain at [facility] on EE status until a bed is found. This clinician plans to call Jeanette Drummond regarding this client's insurance information and will kepp Sasha up to date in this proccess. Update as of 1:15pm - Jeanette reports Medicare has a 190 day lifetime of days one can stay at an inpatient psychiatric facility. Medicare confirmed this and stated there is no way around this even though DD is on involuntary status. Sherman Lee from [facility] is up to date on this case and will keep his ear out. DD is number 4 on the state list of acuity needs. This clinician updated Sasha, Sasha plans to look into it and see about getting DD Medicaid. Person reported agreement to plan: No Facilities contacted if Applicable [facility] Not accepted, No bed available [facility] Not accepted, No bed available [facility] Not accepted, Only accepting in house referrals, [facility] Not accepted, No bed available Reports/communication Outcome discussed with: ED/Personnel (Dr. Bell)
--- NOTE | 2022-03-06 11:06 | NUR.NOTE ---
patient has refused to take his medication x3 attempts by separate nurses Nursing Note:
--- NOTE | 2022-03-06 11:18 | NUR.NOTE ---
spoke with beatrice regarding accuracy of MAR still looking for inpatient placement for today beatrice will review notes and call back for doc to doc Nursing Note:
--- NOTE | 2022-03-06 11:34 | W.EDPROG ---
Date of service: 03/06/22 Time of Service: 08:00 Medical Decision Making 0800 --Case endorsed to continue to monitor while waiting for 0930 --patient refusing to take meds this morning. He is pacing the room and still disorganized but redirectable. 1130 --[facility] Accept[facility] physician Dr. Colette Suh. Sign Out Sign Out Data: Sign Out Comment: Patient is EE'd, He presented with a warrant, he has not had his first MH eval yet due to acute psychosis and being uncooperative. Patient received 5mg Haldol, Benadryl 50mg, and Lorazepam 2mg IM and restrained for approximately 2 hours. He is now unrestrained and sleeping. Hx Schizophrenia and has had multiple inpatient psych admissions. Last updated by Mulu Vu NP at 03/02/22 23:12 Sign Out Comment: EE, awaits cert. No issues overnight Last updated by Rodrigo Traore MD at 03/03/22 06:51 Sign Out Comment: EE. Second certificate completed this evening. Multiple outbursts today. IM meds ordered but he eventually agreed and willingly took PO meds. Awaiting placement. Last updated by Sherry Vega DO at 03/03/22 19:39 Sign Out Comment: EE. 2nd cert complete. Some verbal aggression overnight. Awaiting placement Last updated by Srinivas Fuentes MD at 03/04/22 07:19 Sign Out Comment: No issues today. Behavior stabilized and he is overall more calm and cooperative. Taking scheduled meds. Awaiting placement. If no beds available tomorrow for transfer, consider admission to the floor while awaiting placement. Last updated by Sherry Vega DO at 03/04/22 19:25 Sign Out Comment: EE for SI and HI, second cert completed, awaiting placement; daily meds ordered, patient compliant, no events overnight, improving mood and behavior Last updated by Srinivas Fuentes MD at 03/05/22 07:00 Sign Out Comment: Patient refused Risperdal this morning, took p.o. Zyprexa. Patient signed out to Dr. Traore awaiting inpatient placement. Last updated by Lanette Bell MD at 03/05/22 16:04 Sign Out Comment: EE, awaits placement. No issues on evening shift. Last updated by Rodrigo Traore MD at 03/05/22 22:46 Sign Out Comment: Calm, cooperative overnight. EE, awaiting placement. Last updated by Srinivas Fuentes MD at 03/06/22 07:29 Discharge Plan Disposition Patient Disposition: [facility] Condition: Stable Discharge Details Clinical Impression: Acute psychosis Primary Care Provider: Martha Lopez ED Provider: Sherry Vega [place] Meds and New Rx's Prescriptions: No Action pregabalin [Lyrica] 100 mg capsule 100 mg PO QHS multivitamin [Multiple Vitamins] Tablet 1 tab PO DAILY Qty: 0 0RF thiamine mononitrate (vit B1) [Vitamin B-1 (mononitrate)] 100 mg Tablet 100 mg PO DAILY Qty: 0 0RF risperidone [Risperdal] 2 mg tablet 2 mg PO BID Qty: 14 0RF
--- NOTE | 2022-03-06 11:43 | PDOC.CMSAFED ---
- If Service Date Differs Date of service: 03/06/22 Time of Service: 11:43 Care Management Safety Plan Status: Involuntary - Reason for Wait Reason for Wait: Inpatient Admission PMH: Schizophrenia, acute psychosis, angela, delusional disorder. Alcohol use in remission. Anxiety and depression. Previously admitted to [facility] for acute psychosis in May of 2021, discharged to [facility]. Safety plan has been established to meet the needs of the patient, and consideration of the care team, to adhere to patient goals, identify restrictions based on behavioral status, address nutrition, and determine allowed personal belongings, tools for hygiene and personal care. Determine level of activity including ambulation, level of supervision, visitors, and determine privileges based on behaviors and level of engagement by pt. SAFETY PLAN: 1. Will remain on SI/HI precautions. In Paper Clothes 2. Will remain in room under direct supervision of one-on-one staff at all times provided by [employer], ESTHETICIAN MAKEUP ARTIST, DELIVERY MOTORCYCLE DRIVER export coordinator. 3. May have paper cups, plates, finger foods as well as a cardboard spoon to eat meals. 4. Follow [facility] Management of the Admitted Behavioral Health Patient policy. 5. Comfort bath system only. 6. No personal belongings 7. Visitors: None at this time. 8. Activities: television if available, music tablet, soft items and other activities at RN discretion. 9. Bathroom privileges with escort and supervision 10. Phone: limited to legal contact and his PCP in [place], Dr. Morgan, at nursing discretion. Staff are to dial the phone number for patient. Phone calls to family members are not permitted at this time, at family's request. 11. Due to INVOLUNTARY status, patient is being held at [facility] by the Department of Mental Health ([facility]). 2nd certification by [facility] Psychiatrist completed on 03/03/22 at 1700 and involuntary status was upheld. Staff will provide de-escalation support (CPI) as needed. If patient wishes to leave [facility], staff will contact [facility] Crisis Screener ([phone]) and On-Call Brake Repair Supervisor ([phone]) as soon as possible. In the event of elopement, notify [facility] Police ([phone]). Patient is currently involuntarily at [facility]. [facility] Frontline Medical Secretary Teacher will continue seeking placement. Please contact the Vibratory Pile Driver Brake Repair Supervisor ([phone]) for any needed changes to Safety Plan. Safety plan has been provided to interdepartmental care team. Patient will be transported by marine fisheries technician at time of discharge.
--- NOTE | 2022-03-06 12:11 | NUR.NOTE ---
updated daughter (Klaudia) regarding transfer status to [facility] Note:
[2022-03-06 13:46] VITALS: BP 171/87; PULSE 82; RESP 16; TEMP 36.5; O2SAT 98
--- NOTE | 2022-03-06 14:26 | NUR.NOTE ---
called daughter (Klaudia) with transfer update Nursing Note:
--- NOTE | 2022-03-06 14:35 | PDOC.ERCMPRO ---
- If Service Date Differs Date of service: 03/06/22 Time of Service: 14:35 Care Management Progress Note On 03/02/22, Jared presents in the ED accompanied by police on a Warrant for Emergency Examination. The Warrant states that Jared has a tangential, racing, and circumstantial thought process in addition to experiencing severe delusions and paranoia. On 03/03/2022, Jared meets with Vincent Peralta MD, for a Second Certification by Psychiatrist. Dr. Peralta finds Jared to be a person in need of treatment and the involuntary status is upheld. Today Jared is accepted for an involuntary placement for mood stabilization by the [facility]. He will follow up with his PCP, HS and plan of care as directed upon his discharge from the [facility]. He is transported to [place] by [facility] coordinated by the [facility]. - Status Status: Involuntary - Reason for Wait Reason for Wait: Inpatient Admission ([facility])
== END 2022-03-06 14:54 | disposition short-term general hospital (02) ==
PROVIDERS: Registered Nurse Emergency; Emergency Provider Physician Assistant; PCP Family Medicine
DX: F23 Brief psychotic disorder (principal); F22 Delusional disorders; F32.9 Major depressive disorder, single episode, unspecified; Z20.822 Contact with and (suspected) exposure to COVID-19
CPT/HCPCS: 36415; 80053; 80307; 87635; 96372; 99285; 99291; 80320; 80329; 81003; 84443; 85025; J1200; J1630; J3490

== ENCOUNTER 2024-02-21 19:45 | Emergency (ER) | payer MEDICARE, SELFPAY ==
[2024-02-21 19:46] VITALS: BP 142/114; PULSE 114; RESP 20; TEMP 36.7; O2SAT 98
[2024-02-21] MEDS: OLANZapine 10 MG VIAL 5 MG IM (20:05)
[2024-02-21] MEDS: Midazolam 2 MG/2 ML VIAL IM (20:05)
[2024-02-21] MEDS: diphenhydrAMINE 50 MG/ML VIAL 25 MG IM ×2 (20:05→20:12)
--- NOTE | 2024-02-21 20:12 | W.ED.GENAD ---
Discharge Plan Discharge Details Chief Complaint: PsychEval Clinical Impression: Acute psychosis Primary Care Provider: Esha Morgan ED Provider: Zackary Redding Home Meds and New Rx's Prescriptions: No Action pregabalin [Lyrica] 100 mg capsule 100 mg PO QHS multivitamin [Multiple Vitamins] Tablet 1 tab PO DAILY Qty: 0 0RF thiamine mononitrate (vit B1) [Vitamin B-1 (mononitrate)] 100 mg Tablet 100 mg PO DAILY Qty: 0 0RF risperidone [Risperdal] 2 mg tablet 2 mg PO BID Qty: 14 0RF HPI General Date/Time Provider Initiated Documentation: 02/21/24 19:57. HPI Narrative: 68 year-old male presents to ED today by [facility] custody- warrant submitted for EE, with a chief complaint of unclear- patient showed up at [facility] around 1600 hrs today in acute psychosis with pressured tangential speech, delusional perseveration on civil rights, threatening tones. Quality described as patient only admits to having clinical depression, refusing any interventions, no radiation to chest pain, fever, visible deformity, lacerations, ulcerations. Severity is described as unable to quantify. Palliating factors include was evaluated by [facility] . Provoking factors include nothing specific- denies recent ingestion of illicit substances. Patient not anticoagulated. Related Data Home Medications ?Medication ?Instructions ?Recorded ?Confirmed multivitamin (Multiple Vitamins 1 tab PO DAILY #0 tabs 04/29/19 05/13/21 tablet) thiamine mononitrate (vit B1) 100 100 mg PO DAILY #0 tabs 04/29/19 05/13/21 mg tablet (Vitamin B-1 (mononitrate)) risperidone 2 mg tablet (Risperdal) 2 mg PO BID #14 tabs 05/16/21 03/06/22 pregabalin 100 mg capsule (Lyrica) 100 mg PO QHS 08/08/21 Previous Rx's ?Medication ?Instructions ?Recorded multivitamin (Multiple Vitamins 1 tab PO DAILY #0 tabs 04/29/19 tablet) thiamine mononitrate (vit B1) 100 100 mg PO DAILY #0 tabs 04/29/19 mg tablet (Vitamin B-1 (mononitrate)) risperidone 2 mg tablet (Risperdal) 2 mg PO BID #14 tabs 05/16/21 Allergies Allergy/AdvReac Type Severity Reaction Status Date / Time naproxen (From Aleve) AdvReac Hives Unverified 04/25/19 15:30 General Stated Complaint: PsychEval KAR: 2 Review of Systems All systems reviewed & are unremarkable except as noted in HPI and below Exam Narrative Exam Narrative: GENERAL APPEARANCE: Well-nourished, non-toxic, awake and alert, atraumatic, no acute distress. SKIN: Warm, pink, dry, intact, without rashes/lesions/ulcerations, no visible bruises/lacerations HEAD: Normocephalic, atraumatic, normal hair distribution for gender/age. EYES: Normal conjunctiva, no exudates on lids/lashes. ENT: Nares patent, no circumoral cyanosis, no facial swelling NECK: Supple, trachea midline, painless cervical ROM. LUNGS/CHEST: Lungs CTA bilaterally - no rhonchi/rales/wheezes diffusely, non-labored respirations, normal A/P diameter, symmetrical expansion, no chest wall deformity HEART (CV/PV): Regular rate and rhythm without murmur, no peripheral edema, no JVD. ABDOMEN: Soft, non-distended, no guarding, no tenderness. MSK: Normal ROM, no swelling/deformity to bilateral UEs or LEs, moving all extremities without weakness, no cyanosis, spine midline without tenderness, normal curvature. NEURO: Mental Status acutely psychotic No facial droop, no forehead involvement. Motor: No focal weakness - strength 5/5 in bilateral UEs and LEs, proximal and distal, symmetric, fights back against manual restrains with normal strength Sensory: sensation intact to light touch globally. Gait normal: patient ambulated without ataxia into ED room. PSYCH: dysthymic, uncooperative, unpleasant, delusional tangential speech mentioning [employer] my control experiment stating. Violating his first amendment rights, that I am practicing the lawn medicine unauthorized. Course Vital Signs Vital signs: Vital Signs Temperature 36.7 C 02/21/24 19:46 Pulse 114 H 02/21/24 19:46 Respiratory Rate 20 02/21/24 19:46 Blood Pressure 142/114 H 02/21/24 19:46 Pulse Oximetry 98 02/21/24 19:46 Temperature 36.7 C 02/21/24 19:46 Pulse 114 H 02/21/24 19:46 Respiratory Rate 20 02/21/24 19:46 Blood Pressure 142/114 H 02/21/24 19:46 Blood Pressure Position Sitting 02/21/24 19:46 Pulse Oximetry 98 02/21/24 19:46 Oxygen Delivery Method Room Air 02/21/24 19:46 Oxygen Flow Rate 0 02/21/24 19:46 Pain Level 0 02/21/24 19:46 Medical Decision Making This dictation utilizes [id number] dictation software and may contain unedited grammatical errors. 68 year-old male presents to ED today by [facility] custody- warrant submitted for EE, with a chief complaint of unclear- patient showed up at [facility] around 1600 hrs today in acute psychosis with pressured tangential speech, delusional perseveration on civil rights, threatening tones. Quality described as patient only admits to having clinical depression, refusing any interventions, no radiation to chest pain, fever, visible deformity, lacerations, ulcerations. Severity is described as unable to quantify. Palliating factors include was evaluated by [facility] . Provoking factors include nothing specific- denies recent ingestion of illicit substances. Patients' medical history: Depression, electrolyte issues in the past, alcohol dependence in remission, schizophrenia, acute psychosis, delusional disorder, prediabetes. Family and social history: unknown. Pertinent exam findings / vital signs include delusional tangential speech, threatening against staff, no visible signs of trauma. Differential / pathologies of concern include schizophrenia, acute psychosis, substance abuse. Diagnostic studies of: -CBC, CMP, acetaminophen level, salicylate level, alcohol level, TSH, UDS, UA, EKG. -CBC shows no leukocytosis, chronic anemia -CMP shows no major electrolyte abnormalities, does have an anion gap of 16.6, glucose 112 -Patient has elevated total bilirubin but has had this in the past -TSH within normal limits -Acetaminophen, salicylate, alcohol levels negative -Urine studies pending at time of signout -EKG shows a sinus rhythm at 90 bpm with a known right bundle branch block consistent with priors, normal axis, poor R wave progression, no ST changes of ischemia, slightly wide, n the setting of right bundle branch block - QTc 470 Interventions of: 2010: Manually restrained with myself, security, ED staff, and [facility]- given IM Versed 2mg, 5mg Zyprexxa, and 25mg Benadryl- placed in soft restraints at that time to metabolize. -Given 25mg more IM benadryl at that time 2030: Patient sleeping comfortably, 4 point soft restraints removed at that time. ED Course/Assessment/Plan: 68-year-old male presented to [facility] medicine in acute psychosis, has had many visits to this ER in the past of acute psychosis in the setting of chronic schizophrenia. He is prescribed risperidone at home, he is rambling about not having primary care and having chronic depression and accusing providers of being part of [employer] ultra my control experiments and practicing outside the realm of law. [facility] did apprehend him and underwent their own mental health evaluation and have worn out, I consulted with EM attending Dr. Radha Benjamin for for certification on the patient's involuntary hold. He was resting in ED bed for initial interview with [facility] present and was not making aggressive posturing but was uncooperative with taking medications, I did inform that he was deemed a danger to himself and was going to be held involuntarily, he then became threatening and was placed in 4 point manual restraints by myself and staff in [place] state police were present, weight gave him chemical sedation at that time and placed him in 4 point soft restraints for 20 minutes until medications began to metabolize where he was resting and sleeping comfortably, these restraints were removed after only [address], the patient underwent no hemodynamic changes. Patient's labs are unremarkable he is medically cleared to be evaluated for second certification by psychiatry for involuntary hold and likely placement, patient was signed out to Dr. Donald Zhong at shift change while resting comfortably and sleeping. Disposition of Acute Psychosis. Patient verbalized understanding of the plan and return to ED criteria and engaged in shared decision making. Medical Records Medical records reviewed: Yes I reviewed the patient's medical records. Lab Data Lab results reviewed: Yes I reviewed the patient's lab results. Labs: Laboratory Tests Range/Units 02/21/24 20:20 WBC (4.4-10.8) 10^3/uL 9.85 RBC (4.36-5.78) 10^6/uL 4.73 Hgb (13.5-17.5) g/dL 13.1 L Hct (40.0-50.0) % 40.1 MCV (80-95) fL 85 MCH (27.0-33.0) pg 27.7 MCHC (32.0-36.0) % 32.7 RDW (11.8-14.1) % 16.7 H Plt Count (130-400) 10^3/uL 218 MPV (8.0-11.0) fL 8.8 Immature Gran % % 0.3 Neutrophils % % 79.0 Lymphocytes % % 13.9 Monocytes % % 6.5 Eosinophils % % 0.1 Basophils % % 0.2 Nucleated RBC % (0.0-0.3) % 0.0 Absolute Neutrophils (1.2-6.7) 10^3/uL 7.78 H Absolute Lymphocytes (1.2-3.4) 10^3/uL 1.37 Absolute Monocytes (0.1-0.8) 10^3/uL 0.64 Absolute Eosinophils (0.0-0.7) 10^3/uL 0.01 Absolute Basophils (0.0-0.2) 10^3/uL 0.02 Sodium (136-145) mmol/L 140 Potassium (3.5-5.1) mmol/L 3.7 Chloride (98-107) mmol/L 104 Carbon Dioxide (21.0-32.0) mmol/L 19.4 L Anion Gap (3-11) mmol/L 16.6 H BUN (7-18) mg/dL 21 H Creatinine (0.70-1.30) mg/dL 1.2 Est GFR (CKD-EPI 2020) (mL/min/1.73m2) 66.28 Glucose (74-106) mg/dL 112 H Calcium (8.5-10.1) mg/dL 9.6 Total Bilirubin (0.2-1.0) mg/dL 1.45 H AST (15-37) U/L 17 ALT (16-63) U/L 18 Alkaline Phosphatase (46-116) U/L 52 Total Protein (6.4-8.2) g/dL 7.5 Albumin (3.4-5.0) g/dL 4.0 TSH (0.36-3.74) uIU/mL 1.09 Salicylates (<2.8) mg/dL < 2.8 Acetaminophen (10-30) ug/mL < 2 Ethyl Alcohol (<10) mg/dL < 3.0 Quality:[facility] Health Related Social Needs: No Data to Display PFSH All Active Problems (Updated 02/21/24 @ 21:53 by JO Goel) Delusional disorder (Acute) LOREN (obstructive sleep apnea) (Chronic) Screening for colon cancer (Acute) Lina (Acute) Acute psychosis (Acute) Schizophrenia (Chronic) Acute prerenal azotemia (Acute) Medical History Abdominal pain Alcohol dependence in remission Anxiety and depression Depression Discharge planning issues Foot deformity, acquired Hyperglycemia Hypokalemia Low back pain Numbness and tingling of right arm Numbness in feet Post herpetic neuralgia Prediabetes Shingles Surgical History H/O arthroscopic knee surgery Social History Smoking/Tobacco Use Status: Never Smoking risk assessment performed?: Yes Alcohol Intake: current Substance use type: former substance user Details: Patient unable to tell staff about alcohol/ drug use Additional Social history: unable to verbalize at time of triage Sign Out Sign Out Data: Sign Out Comment: Patient with known schizophrenia, presented to [facility] in acute psychosis- [facility] was called, he was brought in for EE. Was physically restrained for 25 mins, and chemically restrained with 2mg Versed, 5mg Zyprexxa, and 50mg Benadryl. Patient awaiting second cert, sleeping- can go to Zone B on arrival. Has Rx history of respiridone. Last updated by Zackary Redding PA at 02/21/24 22:25 Restraint Face to Face Time of Face to Face Face to Face: Time of Face to Face: 20:10 Patient's Immediate Situation Requiring Restraints/Seclusion: Harm to Staff & Others Patient Response to Restraints: Tolerating without Problems Patient's Medical & Behavioral Condition: Patient was manually restrained by myself and ED staff as well as [facility] and security staff, he was given chemical restraints of 2 mg of Versed, 5 mg of Zyprexa and a total of 50 mg of Benadryl. He was then placed in 4 point soft restraints and allowed to metabolize these medicines for about 20 minutes where he was sleeping comfortably and 4 point restraints were removed at that time around 2029. Need for Continuation of Restraints Has Been Assessed: Restraints Terminated
[2024-02-21] MEDS: Water,Injection,Sterile 10 ML VIAL (20:13)
--- NOTE | 2024-02-21 20:15 | RT.EKG_ITS ---
APPROVED REPORT Exam: Resting ECG Reason for Exam: baseline/screening Patient Location: E HR:90 bpm ECG Measurements Heart Rate 90 AXIS MT 199 P 77 QRSd 131 QRS 51 QT 384 T 38 QTc 470 Conclusion Sinus rhythm, rate 90 RBBB, unchanged from prior No ectopy No STEMI
[2024-02-21 20:34] LABS: Abs Immature Grans 0.03 10^3/uL (0.0-0.06); Absolute Basophil Count 0.02 10^3/uL (0.0-0.2); Absolute Eosinophil Count 0.01 10^3/uL (0.0-0.7); Absolute Lymphocyte Count 1.37 10^3/uL (1.2-3.4); Absolute Monocyte Count 0.64 10^3/uL (0.1-0.8); Absolute Neutrophil Count 7.78 10^3/uL (1.2-6.7); Basophils % 0.2 %; Eosinophils % 0.1 %; HCT 40.1 % (40.0-50.0); HGB 13.1 g/dL (13.5-17.5); Immature Grans % 0.3 %; Lymphocytes % 13.9 %; MCH 27.7 pg (27.0-33.0); MCHC 32.7 % (32.0-36.0); MCV 85 fL (80-95); MPV 8.8 fL (8.0-11.0); Monocytes % 6.5 %; Platelet Count 218 10^3/uL (130-400); RBC 4.73 10^6/uL (4.36-5.78); RDW 16.7 % (11.8-14.1); RDW-SD 51.8 fL; WBC 9.85 10^3/uL (4.4-10.8)
[2024-02-21 20:52] LABS: Salicylate < 2.8 mg/dL (<2.8)
[2024-02-21 20:53] LABS: Acetaminophen < 2 ug/mL (10-30)
[2024-02-21 21:06] LABS: ALT 18 U/L (16-63); AST 17 U/L (15-37); Alkaline Phosphatase 52 U/L (46-116); Anion Gap 16.6 mmol/L (3-11); BUN 21 mg/dL (7-18); Bilirubin, Total 1.45 mg/dL (0.2-1.0); CO2 19.4 mmol/L (21.0-32.0); CREATININE 1.2 mg/dL (0.70-1.30); Calcium 9.6 mg/dL (8.5-10.1); Chloride 104 mmol/L (98-107); Estimated GFR 66.28 (mL/min/1.73m2); Glucose 112 mg/dL (74-106); Potassium 3.7 mmol/L (3.5-5.1); Sodium 140 mmol/L (136-145); TSH (W/Ref FT4) 1.09 uIU/mL (0.36-3.74); Total Protein 7.5 g/dL (6.4-8.2)
[2024-02-21 21:11] LABS: ETHANOL BLOOD < 3.0 mg/dL (<10)
[2024-02-22] MEDS: Water,Injection,Sterile 10 ML VIAL ×2 (01:05→17:50)
[2024-02-22] MEDS: OLANZapine 10 MG VIAL (01:05)
--- NOTE | 2024-02-22 01:44 | W.EDPROG ---
Date of service: 02/22/24 Time of Service: 02:15 Medical Decision Making Patient with history of schizophrenia here with acute psychosis. He has been medically cleared. He was chemically restrained earlier. He was signed out pending inpatient psychiatric admission. He became very agitated and combative once again early this morning. He was placed in physical restraints for safety. He received 10 mg IM Zyprexa. Will remove from restraints once safe to do so. 05:15 - Did well for a little while after IM Zyprexa and was out of restraints. Escalating once again, punching donnelly, pacing around, making threats. Has apparently done well with resperidone in the past when he takes it. Zyprexa not really working. Will try IM Haldol and attempt to not have to physically restrain once again. 07:00 - Did require physical restraints and has had IM Ativan in addition to the Haldol. Still awake, combative, tried to bite the nurse despite being restrained. Given a second dose of Ativan. Signed out to oncoming ED physician pending sedation and removal of physical restraints. Sign Out Sign Out Data: Sign Out Comment: Patient with known schizophrenia, presented to [facility] in acute psychosis- [facility] was called, he was brought in for EE. Was physically restrained for 25 mins, and chemically restrained with 2mg Versed, 5mg Zyprexxa, and 50mg Benadryl. Patient awaiting second cert, sleeping- can go to Zone B on arrival. Has Rx history of respiridone. Last updated by Zackary Redding PA at 02/21/24 22:25 Discharge Plan Discharge Details Chief Complaint: PsychEval Clinical Impression: Acute psychosis Primary Care Provider: Esha Morgan ED Provider: Donald Zhong [place] Meds and New Rx's Prescriptions: No Action pregabalin [Lyrica] 100 mg capsule 100 mg PO QHS multivitamin [Multiple Vitamins] Tablet 1 tab PO DAILY Qty: 0 0RF thiamine mononitrate (vit B1) [Vitamin B-1 (mononitrate)] 100 mg Tablet 100 mg PO DAILY Qty: 0 0RF risperidone [Risperdal] 2 mg tablet 2 mg PO BID Qty: 14 0RF Restraint Face to Face Time of Face to Face Face to Face: Time of Face to Face: 02:48 Patient's Immediate Situation Requiring Restraints/Seclusion: Harm to Patient Patient Response to Restraints: Tolerating without Problems Patient's Medical & Behavioral Condition: Improved after IM Zyprexa, will remove restraints at this time. Need for Continuation of Restraints Has Been Assessed: Restraints Terminated
--- NOTE | 2024-02-22 04:10 | NUR.NOTE ---
Patient moved from the ED to Zone B at approximately 00:30 AM with security present. Patient placed in room 2. Shortly after arrival, the patient became aggressive towards staff. He began screaming obscenities and demanded to be released from Zone B. This show card writer told the patient that he was here involuntarily and would not be allowed to leave. This show card writer attempted to distract patient by offering the patient access to a TV as well as refreshments. Redirection and deescalation were tried multiple times and all attempts failed. The patient threw crackers and his drink at staff members while screaming obscenities. This show card writer and security retreated to the nursing station. The patient then ripped off his shirt and approached the nursing station. He then began violently punching the glass and kicking the wall. The main ED was called with a request for the presence of MD. The patient then began slamming his body against the glass. Another call was placed to the ED requesting additional staff to help with the patient's behaviors. Dr. Zhong arrived shortly after and ordered a four point restraint as well as an IM dose of 10 milligrams of Zyprexa. This medication was given to the patient. During this time, the patient was screaming obscenities at staff and intermittently singing God [employer] Mery. Nursing Note:
--- NOTE | 2024-02-22 06:18 | NUR.NOTE ---
At approximately 5:20, the patient became profoundly dysregulated and started screaming obscenities towards the nursing station. This comic writer called the ED front office manager and requested security. Shortly thereafter, security came to the unit. At this time, the patient was in the common area screaming obscenities and demanding to be released from Zone B. He was also tugging at the door, attempting to escape. The patient stripped naked and threatened to eat his EKG stickers. He placed them in his mouth and simulated swallowing multiple times. He then took his soiled underwear and rubbed them on the nursing station glass. Following this, he began stomping and kicking the various trash containers around Zone B. During this time, he was calling staff members inappropriate names. At this point, I called the ER front office manager and requested the MD come to Zone B. Shortly thereafter, Dr. Zhong arrived and gave a verbal order for 5 milligrams of Haldol IM. Staff entered the Zone and attempted to convince Humza to take the medication willingly. The patient swung at and kicked at staff, requiring AVADE approved techniques to restrain the patient. Later the patient voluntarily entered his bed but then immediately resumed his attempts to kick and punch staff members. This required the application of 4 point restraint to maintain patient and staff safety. Later, staff reentered the patient's room to reapply his right wrist restraint due to the patient attempting to escape the restraint. At this time, Dr. Zhong gave a verbal order to administer 1 milligram of Ativan IM to the patient. The medication was given while the restraint on his right wrist was reapplied. During this time, the patient was belligerent towards several staff members, I'll fucking take your glasses and break them you little motherfucker. Multiple attempts at redirection and deescalation were unsuccessful.Nursing Note:
[2024-02-22] MEDS: LORazepam 2 MG/ML VIAL 1 MG IM (06:52)
[2024-02-22 08:02] VITALS: BP 110/71; PULSE 72; RESP 18; TEMP 35.6
--- NOTE | 2024-02-22 09:17 | NUR.NOTE ---
Nursing Note: Contacted [facility] in [place], [place] and Spoke w/Pharmacist Cameron. Pt has not picked up any medications since last year, and last medications that were filled last year were Omeprazole 20mg QD and Acyclovir 400mg BID
--- NOTE | 2024-02-22 14:59 | MHPN_ITS ---
Date of service: 02/22/24 Time of Service: 14:37 Mental Health Emergency Note Release [facility] release signed:: Yes Reason for Visit Jared is at [facility] on a mental health warrant due to significant concern for his mental health. Jared is being seen by Dr. Meyer from [facility] for his second cert. 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 Non Suicidal Self Injury Current: No History: No Safety Risk/Harm to Self or Others Current Ideation to Harm Self or Others: No Risk: Does risk to harm exist?: No Risk: N/A Duty to warn indicated: No Asssessment/Mental Status Appearance: Disheveled Attitude: Passive Behavior: Agitated and Gait disturbances Speech: Soft Affect: Cogruent with mood Mood: Depressed and Irritable Thought process: Loose associations Attention: Unremarkable Perception: Not impaired Orientation: Fully orientated Insight: Poor Judgement: Poor Neurovegetative Symptoms Sleep: No change Appetitie: No change Interests: No change Energy: No change Libido: Not applicable Substance Use: Do you use nicotine?: No Have you used substances in the last 7 days?: No Additional Issues: Assaultive/Threatening Behavior: No Medical Concerns: No Client engaged in active self harm w/weapon: No Threatening to run away: No Child reported abuse/neglect: No Voluntarily presenting for services: No Domestic violence is a concern: No Extreme Psychosis or extreme behavior is present: Yes Impression Jared presents via [employer] sitting in the hallway in a chair, in hospital scrubs. Jared reports he is doing alright, he remembered the psychiatrist from earlier this morning. Jared is still presenting confused on why he is at the hospital. Jared reports he just needed health insurance to the psychiatrist. When the psychiatrist stated they were assessing to see if he needed to go to the hospital Jared shared he did not need that level of support and became verbally agitated. Jared began swearing and became escalated as the second cert was ending. The psychiatrist is passing the second cert and the paperwork will be sent over shortly. Plan/Disposition Recommended Disposition: Hospitalization (once 2nd cert paperwork is received it will be faxed out) facilities contacted. Plan: Jared will remain at [facility] until involuntary treatment can be found. Person reported agreement to plan: No Reports/communication Outcome discussed with: ED/Personnel
--- NOTE | 2024-02-22 15:30 | MHPN_ITS ---
Date of service: 02/22/24 Time of Service: 08:11 Mental Health Emergency Note Release [facility] release signed:: Yes Reason for Visit Jared is currently on a mental health warrant waiting for inpatient treatment and an evaluation from a psychiatrist. 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 Non Suicidal Self Injury Current: No History: No Safety Risk/Harm to Self or Others Current Ideation to Harm Self or Others: No Risk: Does risk to harm exist?: No Risk: N/A Duty to warn indicated: No Asssessment/Mental Status Appearance: Disheveled Attitude: Passive Behavior: Agitated and Gait disturbances Speech: Slow Affect: Cogruent with mood Mood: Depressed and Irritable Thought process: Unremarkable Hallucinations: No evidence Delusions: No evidence Attention: Unremarkable Perception: Not impaired Orientation: Fully orientated Insight: Poor Judgement: Poor Neurovegetative Symptoms Sleep: No change Appetitie: No change Interests: Decrease Energy: No change Libido: Not applicable Substance Use: Do you use nicotine?: No Have you used substances in the last 7 days?: No Additional Issues: Assaultive/Threatening Behavior: No Medical Concerns: No Client engaged in active self harm w/weapon: No Threatening to run away: No Child reported abuse/neglect: No Voluntarily presenting for services: No Domestic violence is a concern: No Extreme Psychosis or extreme behavior is present: Yes Impression Jared presents to this sign writer hand eating his breakfast in his hospital room. Jared reports that he is doing okay, presents confused with poor insight and judgment. Jared reports no SI, HI, NSSI right now. Jared is easily triggered so we kept this short and to the point, Jared reports that he has nothing else to talk about. Plan/Disposition Recommended Disposition: Hospitalization (waiting on cert.) facilities contacted. Plan: Aureliano will be seen by a psychiatrist who will determine their current level of need. Person reported agreement to plan: No Reports/communication Outcome discussed with: ED/Personnel
--- NOTE | 2024-02-22 16:18 | CMSP_ITS ---
Date of service: 02/22/24 Time of Service: 11:00 Care Management Safety Plan Status Status: Involuntary Reason for Wait Reason for Wait: Assessment/Screening Safety Plan Safety Plan: INVOLUNTARY FOR INPATIENT PSYCHIATRIC STABILIZATION.? Safety plan has been established with patient, and care team, to adhere to patient goals, identify restrictions based on behavioral status, address nutrition, and determine allowed personal belongings, tools for hygiene and personal care. Determine level of activity including ambulation, level of supervision, visitors, and determine privileges based on behaviors and level of engagement by pt. SAFETY PLAN: 1. Will remain on suicide precautions, in paper clothes 2. Will remain in Zone B under direct supervision of one-on-one staff at all times provided by [employer]; MADI, CIVIL PROCESS SERVER white sugar supervisor. 3. May have paper cups, plates, finger foods as well as a cardboard spoon with which to eat meals. 4. Follow [facility] Management of the Admitted Behavioral Health Patient policy. 5. Shower available in Zone B without restriction. 6. Personal belongings-soft items permitted at RN discretion. 7. Visitors-none at this time. 8. Activities: soft cart items approved per RN discretion. 9.? Bathroom available in Zone B without restriction. 10. Phone: limited to [facility] cordless phone at RN discretion. Due to INVOLUNTARY status, patient is being held at [facility] by the Department of Mental Health ([facility]) until 2nd certification by [facility] Psychiatrist can be performed (within 24 hours). Staff will provide de-escalation support (CPI) as needed. If patient wishes to leave [facility], staff will contact [facility] Crisis Screener ([phone]) and Roving Department Supervisor ([phone]) as soon as possible. In the event of elopement, notify [place] [employer] ([phone]). Patient is currently involuntarily at [facility]. [facility] Frontline Mini Lab Operator will continue seeking placement. Please contact the Roving Department Supervisor for any needed changes to Safety Plan. Safety plan has been provided to interdepartmental care team. Patient will be transported by [facility] at time of discharge.
--- NOTE | 2024-02-22 16:18 | PDOC.CMSAFE ---
Date of service: 02/22/24 Time of Service: 11:00 Care Management Safety Plan Status Status: Involuntary Reason for Wait Reason for Wait: Assessment/Screening Safety Plan Safety Plan: INVOLUNTARY FOR INPATIENT PSYCHIATRIC STABILIZATION.? Safety plan has been established with patient, and care team, to adhere to patient goals, identify restrictions based on behavioral status, address nutrition, and determine allowed personal belongings, tools for hygiene and personal care. Determine level of activity including ambulation, level of supervision, visitors, and determine privileges based on behaviors and level of engagement by pt. SAFETY PLAN: 1. Will remain on suicide precautions, in paper clothes 2. Will remain in Zone B under direct supervision of one-on-one staff at all times provided by [employer]; MADI, INSERT OPERATOR program director group work. 3. May have paper cups, plates, finger foods as well as a cardboard spoon with which to eat meals. 4. Follow [facility] Management of the Admitted Behavioral Health Patient policy. 5. Shower available in Zone B without restriction. 6. Personal belongings-soft items permitted at RN discretion. 7. Visitors-none at this time. 8. Activities: soft cart items approved per RN discretion. 9.? Bathroom available in Zone B without restriction. 10. Phone: limited to [facility] cordless phone at RN discretion. Due to INVOLUNTARY status, patient is being held at [facility] by the Department of Mental Health ([facility]) until 2nd certification by [facility] Psychiatrist can be performed (within 24 hours). Staff will provide de-escalation support (CPI) as needed. If patient wishes to leave [facility], staff will contact [facility] Crisis Screener ([phone]) and Dowel Inserting Machine Operator ([phone]) as soon as possible. In the event of elopement, notify [place] [employer] ([phone]). Patient is currently involuntarily at [facility]. [facility] Frontline Malariologist will continue seeking placement. Please contact the Dowel Inserting Machine Operator for any needed changes to Safety Plan. Safety plan has been provided to interdepartmental care team. Patient will be transported by [facility] at time of discharge.
--- NOTE | 2024-02-22 17:12 | CMPROGNOTE_ITS ---
Date of service: 02/22/24 Time of Service: 17:12 Care Management Progress Note Progress Note Text Progress Note Text: CM huddled with staff in the ED including the primary RN, MADI, RN supervisor display fabrication and CM, to discuss Jared's plan of care. Jared is currently being held involuntarily after he presented at a PCP office escalated and agitated, and [facility] was called. He was briefly brought to the police station, and then shortly after brought back to the [facility] ED for a psychiatric evaluation. Per RN, he was agitated overnight, at times being restrained for safety. RN stated that he was more calm this morning, and when the psychiatrist from [facility] attempted to meet with him telehealth, he was not able to engage, as he had been given medication and was too sedated to converse. Later, he met with the psychiatrist, who upheld his second certification. Per [facility], Jared is known to the agency, but does not engage in services. [facility] is sending referrals to all hospitals for consideration. He is involuntary, awaiting inpatient psychiatric treatment. Safety plan discussed in huddle and in place. CM will continue to follow. SDOH(Care Management) Screening Will the Patient Participate in the Screening?: Unable to obtain
--- NOTE | 2024-02-22 17:48 | ED.PROG_ITS ---
Date of service: 02/22/24 Time of Service: 17:48 Medical Decision Making Care assumed from outgoing provider. please see [id number] notes for updates. Quality:SDOH Health Related Social Needs: No Data to Display Sign Out Sign Out Data: Sign Out Comment: Patient with known schizophrenia, presented to [facility] in acute psychosis- [facility] was called, he was brought in for EE. Was physically restrained for 25 mins, and chemically restrained with 2mg Versed, 5mg Zyprexxa, and 50mg Benadryl. Patient awaiting second cert, sleeping- can go to Zone B on arrival. Has Rx history of respiridone. Last updated by Zackary Redding PA at 02/21/24 22:25 Sign Out Comment: EE for psychosis and currently in physical restraints once again. Has been medicated multiple times overnight. Last updated by Donald Zhong MD at 02/22/24 07:10 Sign Out Comment: EE schizophrenia, intermittently requiring meds and restraint. Awaiting placement Last updated by Srinivas Fuentes MD at 02/22/24 18:36 Sign Out Comment: EE, pending placement Has had multiple behavioral escalations requiring chemical/ physical restraint. Home meds have been ordered + seroquel for bedtime and this seems to be helping so far. Trying to keep confined to his room to minimize outbursts/stimulation. Last updated by Deshawn Mena MD at 02/22/24 21:46 Discharge Plan Discharge Details Chief Complaint: PsychEval Clinical Impression: Acute psychosis Primary Care Provider: Esha Morgan ED Provider: Deshawn Mena Home Meds and New Rx's Prescriptions: No Action pregabalin [Lyrica] 100 mg capsule 100 mg PO QHS multivitamin [Multiple Vitamins] Tablet 1 tab PO DAILY Qty: 0 0RF thiamine mononitrate (vit B1) [Vitamin B-1 (mononitrate)] 100 mg Tablet 100 mg PO DAILY Qty: 0 0RF risperidone [Risperdal] 2 mg tablet 2 mg PO BID Qty: 14 0RF Restraint Face to Face Time of Face to Face Face to Face: Time of Face to Face: 17:48 Patient's Immediate Situation Requiring Restraints/Seclusion: Harm to Patient Patient Response to Restraints: Tolerating with minimum Problems Patient's Medical & Behavioral Condition: PSYCHOSIS NOS Need for Continuation of Restraints Has Been Assessed: Restraints Continued 2nd Face to Face: Time of Face to Face: 19:40 Patient Response to Restraints: Tolerating without Problems Patient's Medical & Behavioral Condition: Patient has remained calm and cooperative. Will start his scheduled oral medications and remove restraints. Need for Continuation of Restraints Has Been Assessed: Restraints Terminated
[2024-02-22] MEDS: OLANZapine 10 MG VIAL IM (17:50)
[2024-02-22 18:52] LABS: Bilirubin Small (Negative); Blood Negative (Negative); Clarity Clear (Clear); Glucose Negative (Negative); Ketones 80 mg/dL (Negative); Leukocyte Esterase Negative (Negative); Nitrite Negative (Negative); Specific Gravity >= 1.030 (1.005-1.025); Urobilinogen 0.2 mg/dL (Up to 0.2); pH 5.5 (5-8)
[2024-02-22 19:07] LABS: *AMPHETAMINES SCREEN URINE Negative (Negative); *BARBITURATES SCREEN URINE Negative (Negative); *BENZODIAZEPINES SCREEN URINE Positive (Negative); Cannabinoids THC Positive (Negative); Cocaine Screen,Urine Negative (Negative); METHADONE URINE SCREEN Negative (Negative); OPIATES URINE SCREEN Negative (Negative)
[2024-02-22 19:08] LABS: Tricyclic Antidepressants Negative (Negative)
[2024-02-22] MEDS: QUEtiapine 100 MG TAB PO (19:51)
[2024-02-22] MEDS: risperiDONE 1 MG TAB 2 MG PO (19:51)
--- NOTE | 2024-02-22 22:10 | ED.PROG_ITS ---
Date of service: 02/22/24 Time of Service: 22:11 Medical Decision Making Mother of children Tawny is available to answer questions and provide background. She states that the 2 children he listed are not likely going to be interested in talking to or about him. [phone] Quality:[facility] Health Related Social Needs: No Data to Display Sign Out Sign Out Data: Sign Out Comment: Patient with known schizophrenia, presented to [facility] in acute psychosis- [facility] was called, he was brought in for EE. Was physically restrained for 25 mins, and chemically restrained with 2mg Versed, 5mg Zyprexxa, and 50mg Benadryl. Patient awaiting second cert, sleeping- can go to Zone B on arrival. Has Rx history of respiridone. Last updated by Zackary Redding PA at 02/21/24 22:25 Sign Out Comment: EE for psychosis and currently in physical restraints once again. Has been medicated multiple times overnight. Last updated by Donald Zhong MD at 02/22/24 07:10 Sign Out Comment: EE schizophrenia, intermittently requiring meds and restraint. Awaiting placement Last updated by Srinivas Fuentes MD at 02/22/24 18:36 Sign Out Comment: EE, pending placement Has had multiple behavioral escalations requiring chemical/ physical restraint. Home meds have been ordered + seroquel for bedtime and this seems to be helping so far. Trying to keep confined to his room to minimize outbursts/stimulation. Last updated by Deshawn Mena MD at 02/22/24 21:46 Discharge Plan Discharge Details Chief Complaint: PsychEval Clinical Impression: Acute psychosis Primary Care Provider: Esha Morgan ED Provider: Deshawn Mena Home Meds and New Rx's Prescriptions: No Action pregabalin [Lyrica] 100 mg capsule 100 mg PO QHS multivitamin [Multiple Vitamins] Tablet 1 tab PO DAILY Qty: 0 0RF thiamine mononitrate (vit B1) [Vitamin B-1 (mononitrate)] 100 mg Tablet 100 mg PO DAILY Qty: 0 0RF risperidone [Risperdal] 2 mg tablet 2 mg PO BID Qty: 14 0RF
--- NOTE | 2024-02-23 06:36 | ED.PROG_ITS ---
Date of service: 02/23/24 Time of Service: 06:37 Medical Decision Making No real issues overnight. He took oral Risperdal and Seroquel last night. He is written for as needed Ativan. He remains involuntary pending psychiatric placement. Sign Out Sign Out Data: Sign Out Comment: Patient with known schizophrenia, presented to [facility] in acute psychosis- [facility] was called, he was brought in for EE. Was physically restrained for 25 mins, and chemically restrained with 2mg Versed, 5mg Zyprexxa, and 50mg Benadryl. Patient awaiting second cert, sleeping- can go to Zone B on arrival. Has Rx history of respiridone. Last updated by Zackary Redding PA at 02/21/24 22:25 Sign Out Comment: EE for psychosis and currently in physical restraints once again. Has been medicated multiple times overnight. Last updated by Donald Zhong MD at 02/22/24 07:10 Sign Out Comment: EE schizophrenia, intermittently requiring meds and restraint. Awaiting placement Last updated by Srinivas Fuentes MD at 02/22/24 18:36 Sign Out Comment: EE, pending placement Has had multiple behavioral e scalations requiring chemical/ physical restraint. Home meds have been ordered + seroquel for bedtime and this seems to be helping so far. Trying to keep confined to his room to minimize outbursts/stimulation. Last updated by Deshawn Mena MD at 02/22/24 21:46 Discharge Plan Discharge Details Chief Complaint: PsychEval Clinical Impression: Acute psychosis Primary Care Provider: Esha Morgan ED Provider: Donald Zhong Home Meds and New Rx's Prescriptions: No Action pregabalin [Lyrica] 100 mg capsule 100 mg PO QHS multivitamin [Multiple Vitamins] Tablet 1 tab PO DAILY Qty: 0 0RF thiamine mononitrate (vit B1) [Vitamin B-1 (mononitrate)] 100 mg Tablet 100 mg PO DAILY Qty: 0 0RF risperidone [Risperdal] 2 mg tablet 2 mg PO BID Qty: 14 0RF
[2024-02-23] MEDS: LORazepam 1 MG TAB PO ×3 (07:51→16:03)
[2024-02-23] MEDS: risperiDONE 1 MG TAB 2 MG PO ×2 (07:51→19:29)
--- NOTE | 2024-02-23 16:31 | W.EDPROG ---
Date of service: 02/23/24 Time of Service: 16:31 Medical Decision Making Care assumed from outgoing provider. Patient is a 68-year-old gentleman with psychosis, schizophrenia, pending inpatient placement. He is under an EE. Patient has had some behavioral issues throughout his stay. Currently he is in his room to keep him safe, keep the other patients in zone be safe and limit his stimulation. Quality:[facility] Health Related Social Needs: No Data to Display Sign Out Sign Out Data: Sign Out Comment: Patient with known schizophrenia, presented to [facility] in acute psychosis- [facility] was called, he was brought in for EE. Was physically restrained for 25 mins, and chemically restrained with 2mg Versed, 5mg Zyprexxa, and 50mg Benadryl. Patient awaiting second cert, sleeping- can go to [facility] on arrival. Has Rx history of respiridone. Last updated by Zackary Redding PA at 02/21/24 22:25 Sign Out Comment: EE for psychosis and currently in physical restraints once again. Has been medicated multiple times overnight. Last updated by Donald Zhong MD at 02/22/24 07:10 Sign Out Comment: EE schizophrenia, intermittently requiring meds and restraint. Awaiting placement Last updated by Srinivas Fuentes MD at 02/22/24 18:36 Sign Out Comment: EE, pending placement Has had multiple behavioral escalations requiring chemical/ physical restraint. Home meds have been ordered + seroquel for bedtime and this seems to be helping so far. Trying to keep confined to his room to minimize outbursts/stimulation. Last updated by Deshawn Mena MD at 02/22/24 21:46 Sign Out Comment: Daily meds are written for as well as prn Ativan. Took night time meds last night. Pending involuntary admission. Last updated by Donald Zhong MD at 02/23/24 07:00 Sign Out Comment: intermittent verbal outbursts throughout the day; verbally deescalated; awaiting placement Last updated by Srinivas Fuentes MD at 02/23/24 16:45 Sign Out Comment: EE pending placement Currently on seclusion in his room for his safety, safety of staff and the other female patients in zone B did require a zyprexa IM, but took it willingly. has been taking his scheduled oral meds. Last updated by Deshawn Mena MD at 02/23/24 22:12 Discharge Plan Discharge Details Chief Complaint: PsychEval Clinical Impression: Acute psychosis Primary Care Provider: Esha Morgan ED Provider: Deshawn Mena Home Meds and New Rx's Prescriptions: No Action pregabalin [Lyrica] 100 mg capsule 100 mg PO QHS multivitamin [Multiple Vitamins] Tablet 1 tab PO DAILY Qty: 0 0RF thiamine mononitrate (vit B1) [Vitamin B-1 (mononitrate)] 100 mg Tablet 100 mg PO DAILY Qty: 0 0RF risperidone [Risperdal] 2 mg tablet 2 mg PO BID Qty: 14 0RF Restraint Face to Face Time of Face to Face Face to Face: Time of Face to Face: 17:30 Patient's Immediate Situation Requiring Restraints/Seclusion: Harm to Patient Patient's Medical & Behavioral Condition: Patient currently standing on the desk in bed trying to breakdown the windows and cameras in his room. They have attempted to de-escalate the situation with calm speech, redirection and offered oral medications which she is refused. At this time we will give IM injection and continue to monitor. 2nd Face to Face: Time of Face to Face: 21:00 Patient's Immediate Situation Requiring Restraints/Seclusion: Harm to Staff & Others Patient Response to Restraints: Tolerating without Problems Patient's Medical & Behavioral Condition: Patient's door to his room has been locked and he is resting comfortably inside of his room. He is being monitored by the nurse and sound to be via the camera system. Given that there are 2 other patients in zone B, will continue this seclusion. Need for Continuation of Restraints Has Been Assessed: Restraints Continued
--- NOTE | 2024-02-23 16:34 | CMSP_ITS ---
Date of service: 02/23/24 Time of Service: 11:30 Care Management Safety Plan Status Status: Involuntary Reason for Wait Reason for Wait: Inpatient Admission (Referrals sent. Bhaskar requested additional clinicals, which were sent.) Safety Plan Safety Plan: INVOLUNTARY FOR INPATIENT PSYCHIATRIC STABILIZATION.? Safety plan has been established with patient, and care team, to adhere to patient goals, identify restrictions based on behavioral status, address nutrition, and determine allowed personal belongings, tools for hygiene and per rona care. Determine level of activity including ambulation, level of supervision, visitors, and determine privileges based on behaviors and level of engagement by pt. SAFETY PLAN: 1. Will remain on suicide precautions, in paper clothes 2. Will remain in Zone B under direct supervision of one-on-one staff at all times provided by [employer]; MADI, HADOOP CONSULTANT booster pump operator. 3. May have paper cups, plates, finger foods as well as a cardboard spoon with which to eat meals. 4. Follow [facility] Management of the Admitted Behavioral Health Patient policy. 5. Shower available in Zone B without restriction. 6. Personal belongings-soft items permitted at RN discretion. 7. Visitors-none at this time. 8. Activities: soft cart items approved per RN discretion. 9.? Bathroom available in Zone B without restriction. 10. Phone: limited to [facility] cordless phone at RN discretion. Due to INVOLUNTARY status, patient is being held at [facility] by the Department of Mental Health ([facility]) until 2nd certification by [facility] Psychiatrist can be performed (within 24 hours). Staff will provide de-escalation support (CPI) as needed. If patient wishes to leave [facility], staff will contact [facility] Crisis Screener ([phone]) and Workers' Compensation Claims Supervisor ([phone]) as soon as possible. In the event of elopement, notify [place] [employer] ([phone]). Patient is currently involuntarily at [facility]. [facility] Frontline Manager Drilling will continue seeking placement. Please contact the Workers' Compensation Claims Supervisor for any needed changes to Safety Plan. Safety plan has been provided to interdepartmental care team. Patient will be transported by [employer] at time of discharge.
--- NOTE | 2024-02-23 16:34 | PDOC.CMSAFE ---
Date of service: 02/23/24 Time of Service: 11:30 Care Management Safety Plan Status Status: Involuntary Reason for Wait Reason for Wait: Inpatient Admission (Referrals sent. Bhaskar requested additional clinicals, which were sent.) Safety Plan Safety Plan: INVOLUNTARY FOR INPATIENT PSYCHIATRIC STABILIZATION.? Safety plan has been established with patient, and care team, to adhere to patient goals, identify restrictions based on behavioral status, address nutrition, and determine allowed personal belongings, tools for hygiene and personal care. Determine level of activity including ambulation, level of supervision, visitors, and determine privileges based on behaviors and level of engagement by pt. SAFETY PLAN: 1. Will remain on suicide precautions, in paper clothes 2. Will remain in Zone B under direct supervision of one-on-one staff at all times provided by [employer]; MADI, RETAIL TRAINING MANAGER director of materials. 3. May have paper cups, plates, finger foods as well as a cardboard spoon with which to eat meals. 4. Follow [facility] Management of the Admitted Behavioral Health Patient policy. 5. Shower available in Zone B without restriction. 6. Personal belongings-soft items permitted at RN discretion. 7. Visitors-none at this time. 8. Activities: soft cart items approved per RN discretion. 9.? Bathroom available in Zone B without restriction. 10. Phone: limited to [facility] cordless phone at RN discretion. Due to INVOLUNTARY status, patient is being held at [facility] by the Department of Mental Health ([facility]) until 2nd certification by [facility] Psychiatrist can be performed (within 24 hours). Staff will provide de-escalation support (CPI) as needed. If patient wishes to leave [facility], staff will contact [facility] Crisis Screener ([phone]) and [employer] ([phone]) as soon as possible. In the event of elopement, notify [place] [employer] ([phone]). Patient is currently involuntarily at [facility]. [facility] Frontline Avionic Technician will continue seeking placement. Please contact the [employer] for any needed changes to Safety Plan. Safety plan has been provided to interdepartmental care team. Patient will be transported by [employer] at time of discharge.
--- NOTE | 2024-02-23 16:37 | CMPROGNOTE_ITS ---
Care Management Progress Note Progress Note Text Progress Note Text: CM huddled with staff in the ED including the primary RN, MADI, and CM, to discuss Jared's plan of care. Per RN Jared has had episodes of yelling out, but has been redirectable. Jared is taking his medications as prescribed. Per report, last evening Jared expressed concern about his home. Staff reached out to his son, Moreno, who agreed to go check on his home, which Jared was grateful for. Per NICOLE Stephenson [facility] requested additional documentation today, which was sent. They are reviewing his referral. Jared is currently involuntary, awaiting inpatient psychiatric admission. No changes to safety plan today. CM will continue to follow. SDOH(Care Management) Screening Will the Patient Participate in the Screening?: Unable to obtain
--- NOTE | 2024-02-23 16:42 | W.EDPROG ---
Date of service: 02/23/24 Time of Service: 16:43 Medical Decision Making Intermittent verbal outburst throughout the day however redirectable. Quality:[facility] Health Related Social Needs: No Data to Display Sign Out Sign Out Data: Sign Out Comment: Patient with known schizophrenia, presented to [facility] in acute psychosis- [facility] was called, he was brought in for EE. Was physically restrained for 25 mins, and chemically restrained with 2mg Versed, 5mg Zyprexxa, and 50mg Benadryl. Patient awaiting second cert, sleeping- can go to Zone B on arrival. Has Rx history of respiridone. Last updated by Zackary Redding PA at 02/21/24 22:25 Sign Out Comment: EE for psychosis and currently in physical restraints once again. Has been medicated multiple times overnight. Last updated by Donald Zhong MD at 02/22/24 07:10 Sign Out Comment: EE schizophrenia, intermittently requiring meds and restraint. Awaiting placement Last updated by Srinivas Fuentes MD at 02/22/24 18:36 Sign Out Comment: EE, pending placement Has had multiple behavioral escalations requiring chemical/ physical restraint. Home meds have been ordered + seroquel for bedtime and this seems to be helping so far. Trying to keep confined to his room to minimize outbursts/stimulation. Last updated by Deshawn Mena MD at 02/22/24 21:46 Sign Out Comment: Daily meds are written for as well as prn Ativan. Took night time meds last night. Pending involuntary admission. Last updated by Donald Zhong MD at 02/23/24 07:00 Discharge Plan Discharge Details Chief Complaint: PsychEval Clinical Impression: Acute psychosis Primary Care Provider: Esha Morgan ED Provider: Srinivas Fuentes Home Meds and New Rx's Prescriptions: No Action pregabalin [Lyrica] 100 mg capsule 100 mg PO QHS multivitamin [Multiple Vitamins] Tablet 1 tab PO DAILY Qty: 0 0RF thiamine mononitrate (vit B1) [Vitamin B-1 (mononitrate)] 100 mg Tablet 100 mg PO DAILY Qty: 0 0RF risperidone [Risperdal] 2 mg tablet 2 mg PO BID Qty: 14 0RF
[2024-02-23] MEDS: OLANZapine 10 MG VIAL IM (17:22)
[2024-02-23] MEDS: Water,Injection,Sterile 10 ML VIAL (17:23)
[2024-02-23] MEDS: QUEtiapine 100 MG TAB PO (19:28)
--- NOTE | 2024-02-23 23:31 | W.EDPROG ---
Date of service: 02/23/24 Time of Service: 23:31 Medical Decision Making This patient was signed out to me. Please see previous notes for H&P and initial eval. In brief, 68yo M presenting with hx of schizophrenia presenting with acute psychosis. EEd, 2nd cert upheld. Medically cleared, home meds ordered, pending involuntary inpatient placement. Initially frequently required restraints and involuntary medication; has since been placed in seclusion in room and has been tolerating this well. Overnight appeared to be sleeping comfortably. Did not wake patient for assessment; seclusion continued uneventfully overnight. Will be signed out to oncoming physician, plan remains as above. Will need to be re-assessed for appropriateness of seclusion once patient awakens. Quality:[facility] Health Related Social Needs: No Data to Display Sign Out Sign Out Data: Sign Out Comment: Patient with known schizophrenia, presented to [facility] in acute psychosis- [facility] was called, he was brought in for EE. Was physically restrained for 25 mins, and chemically restrained with 2mg Versed, 5mg Zyprexxa, and 50mg Benadryl. Patient awaiting second cert, sleeping- can go to Zone B on arrival. Has Rx history of respiridone. Last updated by Zackary Redding PA at 02/21/24 22:25 Sign Out Comment: EE for psychosis and currently in physical restraints once again. Has been medicated multiple times overnight. Last updated by Donald Zhong MD at 02/22/24 07:10 Sign Out Comment: EE schizophrenia, intermittently requiring meds and restraint. Awaiting placement Last updated by Srinivas Fuentes MD at 02/22/24 18:36 Sign Out Comment: EE, pending placement Has had multiple behavioral escalations requiring chemical/ physical restraint. Home meds have been ordered + seroquel for bedtime and this seems to be helping so far. Trying to keep confined to his room to minimize outbursts/stimulation. Last updated by Deshawn Mena MD at 02/22/24 21:46 Sign Out Comment: Daily meds are written for as well as prn Ativan. Took night time meds last night. Pending involuntary admission. Last updated by Donald Zhong MD at 02/23/24 07:00 Sign Out Comment: intermittent verbal outbursts throughout the day; verbally deescalated; awaiting placement Last updated by Srinivas Fuentes MD at 02/23/24 16:45 Sign Out Comment: [facility] pending placement Currently on seclusion in his room for his safety, safety of staff and the other female patients in zone B did require a zyprexa IM, but took it willingly. has been taking his scheduled oral meds. Last updated by Deshawn Mena MD at 02/23/24 22:12 Discharge Plan Discharge Details Chief Complaint: PsychEval Clinical Impression: Acute psychosis Primary Care Provider: Esha Morgan ED Provider: Avani Gonzalez Home Meds and New Rx's Prescriptions: No Action pregabalin [Lyrica] 100 mg capsule 100 mg PO QHS multivitamin [Multiple Vitamins] Tablet 1 tab PO DAILY Qty: 0 0RF thiamine mononitrate (vit B1) [Vitamin B-1 (mononitrate)] 100 mg Tablet 100 mg PO DAILY Qty: 0 0RF risperidone [Risperdal] 2 mg tablet 2 mg PO BID Qty: 14 0RF Restraint Face to Face Time of Face to Face Face to Face: Time of Face to Face: 23:58 Patient's Immediate Situation Requiring Restraints/Seclusion: Harm to Staff & Others Patient Response to Restraints: Tolerating without Problems Patient's Medical & Behavioral Condition: Appears to be sleeping on bed. There is significant medical and psychiatric benefit to allowing restful sleep ans so I will not wake patient to further assess. For this reason, at this time unable to assess the safety of potentially discontinuing seclusion; will continue for now. Need for Continuation of Restraints Has Been Assessed: Restraints Continued (seclusion continued) 2nd Face to Face: Time of Face to Face: 01:58 Patient's Immediate Situation Requiring Restraints/Seclusion: Harm to Staff & Others Patient Response to Restraints: Tolerating without Problems Patient's Medical & Behavioral Condition: Appears to be sleeping on bed. There is significant medical and psychiatric benefit to allowing restful sleep and so I will not wake patient to further assess. For this reason, at this time unable to assess the safety of potentially discontinuing seclusion; will continue for now. Need for Continuation of Restraints Has Been Assessed: Restraints Continued (seclusion continued) 4th Face to Face: Time of Face to Face: 04:07 Patient's Immediate Situation Requiring Restraints/Seclusion: Harm to Staff & Others Patient Response to Restraints: Tolerating without Problems Patient's Medical & Behavioral Condition: Appears to be sleeping on bed. There is significant medical and psychiatric benefit to allowing restful sleep and so I will not wake patient to further assess. For this reason, at this time unable to assess the safety of potentially discontinuing seclusion; will continue for now. Need for Continuation of Restraints Has Been Assessed: Restraints Continued (seclusion continued) 5th Face to Face: Time of Face to Face: 06:07 Patient's Immediate Situation Requiring Restraints/Seclusion: Harm to Staff & Others Patient Response to Restraints: Tolerating without Problems Patient's Medical & Behavioral Condition: Appears to be sleeping on bed. There is significant medical and psychiatric benefit to allowing restful sleep and so I will not wake patient to further assess. For this reason, at this time unable to assess the safety of potentially discontinuing seclusion; will continue for now. Need for Continuation of Restraints Has Been Assessed: Restraints Continued (seclusion continued)
--- NOTE | 2024-02-24 08:05 | W.EDPROG ---
Date of service: 02/24/24 Time of Service: 07:00 Medical Decision Making In brief, this is a 68-year-old male patient with a history of schizophrenia, who has been in our emergency department for the last several days with acute psychosis, delusions, and agitation. During his time in the emergency department the patient has required numerous intramuscular injections for sedation and restraint, and at the time the patient was signed out to me was currently in seclusion given his frequent attempts to exit the room, stand unsafely on tables in the common area, shouting and agitating himself and other patients. The patient has boarding orders including oral medications which were offered to him, seclusion continued for patient and staff safety. He was medically cleared prior to my taking over his care, pending placement. The patient was accepted to [facility], was able to be taken off seclusion after becoming more calm. Transport was arranged. The pt remained hemodynamically stable throughout his time under my care. Radha Benjamin MD Quality:[facility] Health Related Social Needs: No Data to Display Sign Out Sign Out Data: Sign Out Comment: Patient with known schizophrenia, presented to [facility] in acute psychosis- [facility] was called, he was brought in for EE. Was physically restrained for 25 mins, and chemically restrained with 2mg Versed, 5mg Zyprexxa, and 50mg Benadryl. Patient awaiting second cert, sleeping- can go to Zone B on arrival. Has Rx history of respiridone. Last updated by Zackary Redding PA at 02/21/24 22:25 Sign Out Comment: EE for psychosis and currently in physical restraints once again. Has been medicated multiple times overnight. Last updated by Donald Zhong MD at 02/22/24 07:10 Sign Out Comment: EE schizophrenia, intermittently requiring meds and restraint. Awaiting placement Last updated by Srinivas Fuentes MD at 02/22/24 18:36 Sign Out Comment: EE, pending placement Has had multiple behavioral escalations requiring chemical/ physical restraint. Home meds have been ordered + seroquel for bedtime and this seems to be helping so far. Trying to keep confined to his room to minimize outbursts/stimulation. Last updated by Deshawn Mena MD at 02/22/24 21:46 Sign Out Comment: Daily meds are written for as well as prn Ativan. Took night time meds last night. Pending involuntary admission. Last updated by Donald Zhong MD at 02/23/24 07:00 Sign Out Comment: intermittent verbal outbursts throughout the day; verbally deescalated; awaiting placement Last updated by Srinivas Fuentes MD at 02/23/24 16:45 Sign Out Comment: EE pending placement Currently on seclusion in his room for his safety, safety of staff and the other female patients in zone B did require a zyprexa IM, but took it willingly. has been taking his scheduled oral meds. Last updated by Deshawn Mena MD at 02/23/24 22:12 Sign Out Comment: 68M, psychosis, EEd and 2nd cert done. Medically cleared pending inpatient placement. Remains in seclusion overnight; reportedly earlier had been aggressive and intrusive with other pts/staff requiring frequent/multiple episodes of physical restraints. No behavioral events overnight, appeared to be sleeping. Will need to be assessed when awake for potential to discontinue seclusion. Last updated by Avani Gonzalez MD at 02/24/24 06:21 Discharge Plan Discharge Details Chief Complaint: PsychEval Clinical Impression: Acute psychosis Primary Care Provider: Esha Morgan ED Provider: Radha Benjamin Home Meds and New Rx's Prescriptions: No Action pregabalin [Lyrica] 100 mg capsule 100 mg PO QHS multivitamin [Multiple Vitamins] Tablet 1 tab PO DAILY Qty: 0 0RF thiamine mononitrate (vit B1) [Vitamin B-1 (mononitrate)] 100 mg Tablet 100 mg PO DAILY Qty: 0 0RF risperidone [Risperdal] 2 mg tablet 2 mg PO BID Qty: 14 0RF Restraint Face to Face Time of Face to Face Face to Face: Time of Face to Face: 08:05 Patient's Immediate Situation Requiring Restraints/Seclusion: Harm to Staff & Others Patient Response to Restraints: Tolerating without Problems Patient's Medical & Behavioral Condition: Psychosis and agitation, attempting to leave room, stand on table, not responsive to verbal and non-seclusion attempts to maintain safety of patient and others. Seclusion re-initiated, oral meds offered. Need for Continuation of Restraints Has Been Assessed: Restraints Continued 2nd Face to Face: Time of Face to Face: 10:02 Patient's Immediate Situation Requiring Restraints/Seclusion: Harm to Staff & Others Patient Response to Restraints: Tolerating without Problems Patient's Medical & Behavioral Condition: Exposing genetalia to camera, danger to others in area. Yelling and paranoia. Accusing staff of working for the [facility]. Verbally redirecting, taking oral meds. Need for Continuation of Restraints Has Been Assessed: Restraints Continued 3rd Face to Face: Time of Face to Face: 11:59 Patient's Immediate Situation Requiring Restraints/Seclusion: Harm to Staff & Others Patient Response to Restraints: Tolerating without Problems Patient's Medical & Behavioral Condition: Psychosis, delusion, exposing himself. Requires seclusion for safety of others Need for Continuation of Restraints Has Been Assessed: Restraints Continued 4th Face to Face: Time of Face to Face: 13:54 Patient Response to Restraints: Tolerating without Problems Patient's Medical & Behavioral Condition: On reevaluation, while the patient remains paranoid with delusions (believes that the [facility] gave him diarrhea and he is going to [place] to be deprogrammed) the patient is much more verbally calm. Seclusion was discontinued, the patient ambulated with steady gait to the restroom, requested and excepted a cup of coffee calmly, and went back to rest in his room. Need for Continuation of Restraints Has Been Assessed: Restraints Terminated
[2024-02-24] MEDS: risperiDONE 1 MG TAB 2 MG PO (08:08)
[2024-02-24] MEDS: LORazepam 1 MG TAB PO (08:08)
== END 2024-02-24 18:59 ==
PROVIDERS: Physician Assistant; Emergency Provider Emergency Medicine; PCP Family Medicine
DX: F23 Brief psychotic disorder (principal); F22 Delusional disorders; R45.1 Restlessness and agitation; F32.A Depression, unspecified; I45.19 Other right bundle-branch block; Z78.1 Physical restraint status
CPT/HCPCS: 00123; 80053; 80307; 93005; 96372; 99285; 80320; 80329; 81003; 84443; 85025; 93010; J1200; J2060; J2250; J2359